=== PATIENT | male | born 1955 | race Caucasian/White ===

== ENCOUNTER 2016-07-04 21:39 | Emergency (ER) | payer OTHER ==
[~2016-07-04] VITALS: Ht 185.4 cm; Wt 84.1 kg
[2016-07-04 22:39] VITALS: BP 112/60; PULSE 68; RESP 16; TEMP 98.3; O2SAT 96
--- NOTE | 2016-07-04 22:46 | PD ---
HPI Chief Complaint: Killian act Time Seen by Provider: 22:38 Travel History International Travel<30 days: No Contact w/Intl Traveler<30days: No Traveled to known affect area: No History of Present Illness HPI 60-year-old male presents under Killian act initiated by the Police Department. According to his paperwork the patient was found on the ground intoxicated bleeding from his nose. He is visibly upset, refuse treatment, so that he was depressed and has lost everything. On examination the patient admits to feeling depressed for years, he says that everything that he ever had was stolen from him. He admits [place]. He doesn't recall how he injured his face. He denies any pain at this time. He denies any chest pain, shortness of breath, syncopal events, suicidal or homicidal thoughts. He denies any drug use. He has no other complaints. Last tetanus vaccination within 5 years. History is somewhat limited secondary to intoxication. [facility] Social History Alcohol Use: Yes (3 BEERS/DAY) Tobacco Use: No Substance Use: No Allergies-Medications (Allergen,Severity, Reaction): Coded Allergies: Liv (Verified Allergy, Severe, Hives, 07/04/16) Reported Meds & Prescriptions Reported Meds & Active Scripts Active Active Prescriptions or Reported Medications Unobtainable Review of Systems ROS Limitations: Intoxication Except as stated in HPI: all other systems reviewed are Neg Physical Exam Exam Limitations: Intoxication Narrative GENERAL: Disheveled appearing male in no acute distress SKIN: Warm and dry. Abrasions to the nose. HEAD: Atraumatic. Normocephalic. EYES: Pupils equal and round. No scleral icterus. No injection or drainage. ENT: No nasal bleeding or discharge. Mucous membranes pink and moist. No septal hematoma, no obvious dental injury. NECK: Trachea midline. No JVD. CARDIOVASCULAR: Regular rate and rhythm. No murmur appreciated. RESPIRATORY: No accessory muscle use. Clear to auscultation. Breath sounds equal bilaterally. GASTROINTESTINAL: Abdomen soft, non-tender, nondistended. Hepatic and splenic margins not palpable. MUSCULOSKELETAL: No obvious deformities. No clubbing. No cyanosis. No edema. NEUROLOGICAL: Awake and alert. No obvious cranial nerve deficits. Motor grossly within normal limits. Slurred speech PSYCHIATRIC: Depressed mood. Data Data Last Documented VS Vital Signs Date Time Temp Pulse Resp B/P Pulse Ox O2 Delivery O2 Flow Rate FiO2 07/04/16 23:24 18 100 Room Air 07/04/16 22:39 98.3 68 112/60 Orders Complete Blood Count With Diff (07/04/16 22:26) Comprehensive Metabolic Panel (07/04/16 22:26) Psych Screen (07/04/16 22:26) Drug Screen, Random Urine (07/04/16 22:31) Alcohol (Ethanol) (07/04/16 22:31) Ct Brain W/O Iv Contrast(Rout) (07/04/16 ) Ct Facial Bones W/O Iv Cont (07/04/16 ) Ct Cerv Spine W/O Contrast (07/04/16 ) Labs Laboratory Tests Test 07/04/16 07/04/16 22:50 22:55 Ethyl Alcohol Level 369 MG/DL Sodium Level 141 MEQ/L Potassium Level 3.8 MEQ/L Chloride Level 106 MEQ/L Carbon Dioxide Level 26.5 MEQ/L Anion Gap 9 MEQ/L Blood Urea Nitrogen 7 MG/DL Creatinine 0.90 MG/DL Estimat Glomerular Filtration 86 ML/MIN Rate Random Glucose 93 MG/DL Calcium Level 8.4 MG/DL Total Bilirubin 0.3 MG/DL Aspartate Amino Transf 24 U/L (AST/SGOT) Alanine Aminotransferase 24 U/L (ALT/SGPT) Alkaline Phosphatase 85 U/L Total Protein 8.1 GM/DL Albumin 4.0 GM/DL Urine Opiates Screen NEG Urine Barbiturates Screen NEG Urine Amphetamines Screen NEG Urine Benzodiazepines Screen NEG Urine Cocaine Screen NEG Urine Cannabinoids Screen NEG White Blood Count 7.4 TH/MM3 Red Blood Count 4.07 MIL/MM3 Hemoglobin 15.5 GM/DL Hematocrit 43.2 % Mean Corpuscular Volume 106.2 FL Mean Corpuscular Hemoglobin 38.2 PG Mean Corpuscular Hemoglobin 36.0 % Concent Red Cell Distribution Width 12.6 % Platelet Count 278 TH/MM3 Mean Platelet Volume 7.1 FL Neutrophils (%) (Auto) 45.3 % Lymphocytes (%) (Auto) 46.7 % Monocytes (%) (Auto) 6.2 % Eosinophils (%) (Auto) 1.4 % Basophils (%) (Auto) 0.4 % Neutrophils # (Auto) 3.3 TH/MM3 Lymphocytes # (Auto) 3.4 TH/MM3 Monocytes # (Auto) 0.5 TH/MM3 Eosinophils # (Auto) 0.1 TH/MM3 Basophils # (Auto) 0.0 TH/MM3 CBC Comment AUTO DIFF Differential Comment AUTO DIFF CONFIRMED Platelet Estimate NORMAL Platelet Morphology Comment NORMAL Tear Drop Cells Ovalocytes 1+ MDM Medical Decision Making Medical Screen Exam Complete: Yes Emergency Medical Condition: Yes Medical Record Reviewed: Yes Differential Diagnosis Substance induced mood disorder, adjustment reaction, acute psychosis, major depressive disorder, bipolar disorder Narrative Course Mental health screening discussed with the patient. Psychiatric screen ordered. Alcohol level was 369. CT of the facial bones reveals old nasal fracture, no acute abnormality. CT of the brain and cervical spine negative. The patient is medically cleared for psychiatric disposition. Diagnosis Primary Impression: Alcohol intoxication Qualified Code: F10.120 - Alcohol intoxication, uncomplicated Additional Impression: Depression Qualified Code: F32.9 - Depression, unspecified depression type Scripts Unable to Obtain Active Prescriptions or Reported Meds Daniel Byers Jul 04, 2016 22:46
[2016-07-04 23:28] LABS: AMPHETAMINE, URINE NEG (NEG); BARBITURATES, URINE NEG (NEG); COCAINE, URINE NEG (NEG)
[2016-07-04 23:54] LABS: AUTOMATED NEUTROPHIL # 3.3 TH/MM3 (1.8-7.7); BASOPHIL % 0.4 % (0.0-2.0); EOSINOPHIL # 0.1 TH/MM3 (0-0.4); EOSINOPHIL % 1.4 % (0.0-4.0); HEMATOCRIT 43.2 % (39.0-51.0); LYMPH % 46.7 % (9.0-44.0); LYMPHOCYTE # 3.4 TH/MM3 (1.0-4.8); MEAN CELL VOLUME 106.2 FL (80.0-100.0); MEAN CORPUSCULAR HEMOGLOBIN 38.2 PG (27.0-34.0); MONO % 6.2 % (0.0-8.0); NEUT % 45.3 % (16.0-70.0); PLATELET COUNT 278 TH/MM3 (150-450); RED BLOOD COUNT 4.07 MIL/MM3 (4.50-5.90); RED CELL DISTRIBUTION WIDTH 12.6 % (11.6-17.2); WHITE BLOOD COUNT 7.4 TH/MM3 (4.0-11.0)
[2016-07-04 23:57] LABS: ANION GAP 9 MEQ/L (5-15); AST (GOT) 24 U/L (15-37); BICARBONATE 26.5 MEQ/L (21.0-32.0); BLOOD UREA NITROGEN 7 MG/DL (7-18); CHLORIDE 106 MEQ/L (98-107); GLOMERULAR FILTRATION RATE 86 ML/MIN (>89); POTASSIUM 3.8 MEQ/L (3.5-5.1); SODIUM (NA) 141 MEQ/L (136-145)
[2016-07-05] LABS: ALKALINE PHOSPHATASE 85 U/L (45-117); ALT (GPT) 24 U/L (12-78); TOTAL BILIRUBIN ADULT 0.3 MG/DL (0.2-1.0)
--- NOTE | 2016-07-05 00:02 | RADRPT ---
EXAM DATE/TIME: 07/04/2016 23:14 [facility] COMPARISON: CT BRAIN W/O CONTRAST, May 10, 2015, 15:40. INDICATIONS : Trauma; fall. ETOH. RADIATION DOSE: 56.35 CTDIvol (mGy) MEDICAL HISTORY : Non-responsive. SURGICAL HISTORY : Non-responsive. ENCOUNTER: Initial ACUITY: 1 day PAIN SCALE: Non-responsive LOCATION: cranial TECHNIQUE: Multiple contiguous axial images were obtained of the head. Using automated exposure control and adj ustment of the mA and/or kV according to patient size, radiation dose was kept as low as reasonably a chievable to obtain optimal diagnostic quality images. FINDINGS: CEREBRUM: The ventricles are normal for age. No evidence of midline shift, mass lesion, hemorrhage or acute in farction. No extra-axial fluid collections are seen. POSTERIOR FOSSA: The cerebellum and brainstem are intact. The 4th ventricle is midline. The cerebellopontine angle i s unremarkable. EXTRACRANIAL: The visualized portion of the orbits is intact. There is minimal left maxillary sinus disease. SKULL: The calvaria is intact. No evidence of skull fracture. CONCLUSION: No acute disease. Amanuel Zhang MD on July 04, 2016 at 23:59 Board Certified Radiologist. This report was verified electronically.
[2016-07-05 00:04] LABS: HEMO FLAGS AUTO DIFF
--- NOTE | 2016-07-05 00:07 | RADRPT ---
EXAM DATE/TIME: 07/04/2016 23:14 [facility] COMPARISON: CT CERVICAL SPINE W/O CONTRAST, May 10, 2015, 15:40. INDICATIONS : Trauma; fall. ETOH. RADIATION DOSE: 18.4 CTDIvol (mGy) MEDICAL HISTORY : Non-responsive. SURGICAL HISTORY : Non-responsive. ENCOUNTER: Initial ACUITY: 1 day PAIN SCALE: Non-responsive LOCATION: neck TECHNIQUE: Volumetric scanning of the cervical spine was performed. Multiplanar reconstructions in the sagittal, coronal and oblique axial planes were performed. Using automated exposure control and adjustment o f the mA and/or kV according to patient size, radiation dose was kept as low as reasonably achievable to obtain optimal diagnostic quality images. FINDINGS: VERTEBRAE: Normal vertebral body height. ALIGNMENT: There is 3 mm of anterior subluxation of C5 on C6 secondary to degenerative facet change. This was pr esent previously. C2-C3: The bony spinal canal is normal in size. No evidence of disc bulge or herniation. The neural forami na are bilaterally patent. There is severe facet hypertrophy on the right. C3-C4: The disc space is narrowed. A significant impression on the thecal sac is not seen. There is uncovert ebral and facet hypertrophy. Facet hypertrophy is worse on the left. There is narrowing of the left n eural foramina. The right neural foramina is patent. C4-C5: The bony spinal canal is normal in size. No evidence of disc bulge or herniation. The neural forami na are bilaterally patent. There is moderate facet hypertrophy being worse on the right. C5-C6: Again noted is the anterior subluxation of C5 on C6. There is moderate facet hypertrophy. The bony sp inal canal is normal in size. No evidence of disc bulge or herniation. The neural foramina are bila terally patent.C6-C7: The bony spinal canal is normal in size. No evidence of disc bulge or herniation. The neural forami na are bilaterally patent. There is mild facet hypertrophy being worse on the right. C7-T1: The bony spinal canal is normal in size. No evidence of disc bulge or herniation. The neural forami na are bilaterally patent. CONCLUSION: Degenerative change. An acute bony abnormality is not seen. Amanuel Zhang MD on July 05, 2016 at 0:01 Board Certified Radiologist. This report was verified electronically.
--- NOTE | 2016-07-05 00:29 | RADRPT ---
EXAM DATE/TIME: 07/04/2016 23:14 [facility] COMPARISON: CT BRAIN W/O CONTRAST, May 10, 2015, 15:40. INDICATIONS : Trauma; fall. ETOH. RADIATION DOSE: 21.96 CTDIvol (mGy) MEDICAL HISTORY : Non-responsive. SURGICAL HISTORY : Non-responsive. ENCOUNTER: Initial ACUITY: 1 day PAIN SCORE: Non-responsive LOCATION: facial TECHNIQUE: Volumetric scanning of the facial bones was performed. Using automated exposure control and adjustme nt of the mA and/or kV according to patient size, radiation dose was kept as low as reasonably achiev able to obtain optimal diagnostic quality images. FINDINGS: ORBITS: The orbital and infraorbital osseous structures are intact. The retroconal structures have a normal configuration. No radiopaque foreign bodies are seen. NASAL BONE: There is bony deformity seen at the distal aspect of the nasal bones being worse on the right. This a ppears more chronic potentially from prior fracture. ZYGOMATIC ARCHES: Symmetric without evidence of fracture. SINUSES: There is minimal left maxillary sinus disease. The right maxillary, ethmoid and frontal sinuses are i ntact. No air-fluid levels seen. NASAL CAVITY: The nasal septum is intact and midline. The lacrimal ducts are intact. SOFT TISSUES: No radiopaque foreign bodies seen. No soft-tissue swelling is seen. INTRACRANIAL: No intracranial air seen. CRIBIFORM PLATE: Grossly intact. CONCLUSION: Deformity and hypertrophic change of the distal inferior aspect of the nasal bones especially on the right. This thought to likely be more chronic given its appearance from prior injury. This can be cor related clinically. Amanuel Zhang MD on July 05, 2016 at 0:23 Board Certified Radiologist. This report was verified electronically.
[2016-07-05 00:55] LABS: OVALOCYTES 1+ (NORMAL)
[2016-07-05 00:57] LABS: PLATELET ESTIMATE SMEAR NORMAL (NORMAL); PLATELET MORPHOLOGY NORMAL (NORMAL); SCAN/DIFF AUTO DIFF CONFIRMED
[2016-07-05 03:22] VITALS: BP 100/85; PULSE 54; RESP 18; TEMP 98.5; O2SAT 96
[2016-07-05] MEDS ORDERED: LORazepam 2 MG TAB PO PRN (06:45)
[2016-07-05] MEDS ORDERED: FLUMAZENIL 0.5 MG/5 ML VIAL IV PUSH PRN (06:45)
[2016-07-05] MEDS ORDERED: LORazepam 2 MG/ML VIAL IV PUSH PRN ×4 (06:45)
[2016-07-05] MEDS ORDERED: LORazepam 1 MG TAB PO PRN (06:45)
[2016-07-05 10:46] VITALS: BP 103/60; PULSE 104; RESP 18; O2SAT 97
[2016-07-05 11:39] VITALS: BP 103/60; PULSE 104; RESP 18; O2SAT 97
--- NOTE | 2016-07-05 11:51 | PD.CONS ---
Provisional Diagnosis Admission Date 07/04/16 [place]. Adjustment disorder with mixed disturbances of emotion and conduct F 25.0 alcohol abuse F10.10 History of Present Illness Service Psychiatry Consult Requested By EDMD Reason for Consult Killian act Primary Care Physician No Primary Care Physician HPI Patient is a 60-year-old white male who comes here under Killian act by the [place] police dated 07/04/16 at 202 7 PM Killian act reviewed essentially stating that the patient was found on the ground intoxicated and bleeding from his nose it appears he was upset and was unable to describe the situation he initially refused medical treatment saying he was depressed and lost everything but no family or friends in the area. Patient was seen screened in the ED blood alcohol level of 369 negative toxicology. At the present time patient sitting quietly in his room on J pod nurse Delgado present throughout session. Is no the patient has multiple abrasions and swelling over his nose from falling on his face. This is been addressed and treated by the ED physician. Patient states essentially homeless has been staying with a man who he works with. This man told him to leave the house at 10:00 yesterday and not come back to 10 PM. So the patient went to a Park where he knows some men and started drinking. He admits only to drinking beer. Patient states he has abused alcohol since a teenager. There is been stressors in his life the of his about 7 years ago. Known since high school. It appears she had a prior relationship that resulted in 2 children. Patient states he has no relationship with them. He does state he has a college degree. Patient denies any prior psychiatric contact psychotropic medications or hospitalizations. Patient denies suicidality homicidality voices or visions. He denies any physical or sexual abuse in his past. Denies any mental health issues predictions in his family of origin. At the present time patient does not meet Kaesu act criteria I'll lift Kaesu act. It is okay by psych for discharge when medically clear and stable. No Rx by me. [place] referral AA, phil referral [facility] act voluntary outpatient substance abuse assessment Review of Systems Constitutional: DENIES: Diaphoretic episodes, Fatigue, Fever, Weight gain, Weight loss, Chills, Dizziness, Change in appetite, Night Sweats Endocrine: DENIES: Heat/cold intolerance, Polydipsia, Polyuria, Polyphagia Eyes: DENIES: Blurred vision, Diplopia, Eye inflammation, Eye pain, Vision loss , Photosensitivity, Double Vision Ears, nose, mouth, throat: DENIES: Tinnitus, Hearing loss, Vertigo, Nasal discharge, Oral lesions, Throat pain, Hoarseness, Ear Pain, Running Nose, Epistaxis, Sinus Pain, Toothache, Odynophagia Respiratory: DENIES: Apneas, Cough, Snoring, Wheezing, Hemoptysis, Sputum production, Shortness of breath Cardiovascular: DENIES: Chest pain, Palpitations, Syncope, Dyspnea on Exertion , PND, Lower Extremity Edema, Orthopnea, Claudication Gastrointestinal: DENIES: Abdominal pain, Black stools, Bloody stools, Constipation, Diarrhea, Nausea, Vomiting, Difficulty Swallowing, Anorexia Genitourinary: DENIES: Sexual dysfunction, Urinary frequency, Urinary incontinence, Urgency, Hematuria, Dysuria, Nocturia, Penile Discharge, Testicular Pain, Testicular Swelling Musculoskeletal: DENIES: Joint pain, Muscle aches, Stiffness, Joint Swelling, Back pain, Neck pain Integumentary: DENIES: Abnormal pigmentation, Nail changes, Pruritus, Rash Hematologic/lymphatic: DENIES: Bruising, Lymphadenopathy Immunologic/allergic: DENIES: Eczema, Urticaria Neurologic: DENIES: Abnormal gait, Headache, Localized weakness, Paresthesias, Seizures, Speech Problems, Tremor, Poor Balance Psychiatric: COMPLAINS OF: Depression Past Family Social History Coded Allergies: Liv (Verified Allergy, Severe, Hives, 07/04/16) Past Medical History Long history alcohol abuse Unable to Obtain Active Prescriptions or Reported Meds Current Medications Medications (Trade) Dose Ordered Sig/Luis Route Start Time Stop Time Status Last Admin (Romazicon Inj) 0.2 mg Q1M PRN IV PUSH 07/05/16 06:45 (Ativan) 1 mg Q4H PRN PO 07/05/16 06:45 (Ativan Inj) 1 mg Q4H PRN IV PUSH 07/05/16 06:45 (Ativan) 2 mg Q2H PRN PO 07/05/16 06:45 (Ativan Inj) 2 mg Q2H PRN IV PUSH 07/05/16 06:45 (Ativan Inj) 2 mg Q1H PRN IV PUSH 07/05/16 06:45 (Ativan Inj) 2 mg Q15M PRN IV PUSH 07/05/16 06:45 Family History Denies mental health issues or addictions and family Social History Patient living with fellow worker, but essentially homeless Patient's Strengths (min. 2) Patient verbal able access healthcare Physical Exam Patient seen screen in ED exam reviewed and agreed with Vital Signs Vital Signs Date Time Temp Pulse Resp B/P Pulse Ox O2 Delivery O2 Flow Rate FiO2 07/05/16 10:46 104 18 103/60 97 Room Air 07/05/16 03:22 98.5 Mental Status Examination Alert oriented thin slender white male appears stated age seen calmly in his room nurse Delgado present throughout session. Patient calm cooperative with fair eye contact Appearance Somewhat disheveled Speech: Unremarkable Memory: Unremarkable Thought Process: Logical Thought Content: Unremarkable Language Citizen Of [place] Fund of Knowledge Fair Hallucination Type: None Attention and Concentration: Other (fair) Suicidal Ideation: No (deny) Previous Suicide Attempts: No (deny) Homicidal Ideation: No (denies) Previous Homicide Attempts: No (denies) Insight: Fair Judgment: Poor Affect: Other (decreased range and intensity) Mood: Euthymic (to somewhat dysphoric) Motor Activity: Normal gait Assessment & Plan Problem List: (1) Adjustment disorder with mixed disturbance of emotions and conduct ICD Code: F43.25 (2) Alcohol abuse ICD Code: F10.10 Assessment & Plan Estimated LOS: days patient does not meet Killian criteria will lift Maria D act as okay by psych for discharge for medical clearance stable, no Rx by me, strong recommendation AA, strong recommendation voluntary assessment [facility] act outpatient substance abuse assessment Discharge Planning See above Request HC Surrog/Guard Advoc?: No Amanuel Hardy MD Jul 05, 2016 11:51
== END 2016-07-05 12:28 | disposition home or self-care (01) ==
LOC: NEPB 21:39 → NEPJ 07-05 12:28
DX: F10.120 Alcohol abuse with intoxication, uncomplicated (principal); S00.31XA Abrasion of nose, initial encounter; F32.9 Major depressive disorder, single episode, unspecified; Y90.8 Blood alcohol level of 240 mg/100 ml or more; X58.XXXA Exposure to other specified factors, initial encounter; Y92.9 Unspecified place or not applicable; Y99.9 Unspecified external cause status; Y93.9 Activity, unspecified
CPT/HCPCS: 70450; 70486; 72125; 80053; 80307; 85025

== ENCOUNTER 2016-12-05 17:18 | Emergency (ER) | payer OTHER ==
[~2016-12-05] VITALS: Ht 172.7 cm; Wt 77.0 kg
[2016-12-05 17:33] VITALS: BP 132/84; PULSE 73; RESP 16; TEMP 98.2; O2SAT 97
--- NOTE | 2016-12-05 17:38 | PD ---
HPI Chief Complaint: alcohol intoxication Time Seen by Provider: 17:34 Travel History International Travel<30 days: No Contact w/Intl Traveler<30days: No History of Present Illness HPI Patient comes in under Lake's act for alcohol intoxication. Patient reportedly known alcoholic and is homeless per police. Patient denies any medical complaints or concerns at this time. Denies any chest pain, shortness of breath, fevers, abdominal pain, headache, nausea, vomiting, suicidal or homicidal ideations, or loss change in bowel or bladder. Per police patient was initially unable to ambulate on his own which is why they Lake's acted him. Patient is ambulatory in the room. Patient states he does not drink that much as he does not have the money to afford the alcohol. [facility] Past Medical History Diabetes: Yes Social History Alcohol Use: Yes (3 BEERS/DAY) Tobacco Use: No Substance Use: Yes (Drinks almost daily) Allergies-Medications (Allergen,Severity, Reaction): Coded Allergies: fexofenadine (Unverified Allergy, Severe, Hives, 12/05/16) Reported Meds & Prescriptions Reported Meds & Active Scripts Active No Active Prescriptions or Reported Medications Review of Systems Except as stated in HPI: all other systems reviewed are Neg Physical Exam Narrative GENERAL: Well-developed, well nourished, in no acute distress, and non-ill appearing. Alcohol noted on breath. SKIN: Focused skin assessment warm and dry. HEAD: Atraumatic. Normocephalic. EYES: Pupils equal and round. EOMI. No scleral icterus. No injection or drainage. ENT: No nasal bleeding or discharge. Mucous membranes pink and moist. NECK: Trachea midline. Supple. No nuclear rigidity. CARDIOVASCULAR: Regular rate and rhythm. No murmur appreciated. RESPIRATORY: No accessory muscle use. No respiratory distress. Clear to auscultation. Breath sounds equal bilaterally. MUSCULOSKELETAL: No obvious deformities. No clubbing. No cyanosis. No edema. Full range of motion. NEUROLOGICAL: Awake and alert. No obvious cranial nerve deficits. Motor grossly within normal limits. Normal speech. PSYCHIATRIC: Appropriate mood and affect; insight and judgment normal. Data Data Last Documented VS Vital Signs Date Time Temp Pulse Resp B/P (MAP) Pulse Ox O2 Delivery O2 Flow Rate FiO2 12/05/16 21:13 77 16 122/71 (88) 96 Room Air 12/05/16 17:45 97.9 [facility] Medical Decision Making Medical Screen Exam Complete: Yes Emergency Medical Condition: Yes Differential Diagnosis Alcohol intoxication, alcohol abuse, alcohol dependency, other Narrative Course Patient was seen and examined. Patient will be monitored in the emergency department until clinically sober and able to ambulate on their own or until a sober responsible adult comes to pick them up at which time Lake's act will be lifted. RN is aware of this. Diagnosis Primary Impression: Alcohol intoxication Qualified Codes: F10.920 - Alcohol use, unspecified with intoxication, uncomplicated Referrals: [facility] Patient Instructions: Abuse of Alcohol (ED), General Instructions Additional Instructions: Follow-up with your primary care physician and/or [facility]o Deshpande for alcohol detox. Return to the emergency department if symptoms get worse.s Scripts No Active Prescriptions or Reported Meds Disposition: 01 DISCHARGE HOME Condition: Stable Azam Tovar Dec 05, 2016 17:38
[2016-12-05 17:45] VITALS: BP 128/73; PULSE 75; RESP 20; TEMP 97.9; O2SAT 100
[2016-12-05 21:13] VITALS: BP 122/71; PULSE 77; RESP 16; O2SAT 96
== END 2016-12-06 03:14 | disposition home or self-care (01) ==
LOC: NEPE 17:18 → NEPD 12-06 03:14
DX: F10.920 Alcohol use, unspecified with intoxication, uncomplicated (principal); Z59.0 Homelessness
CPT/HCPCS: 99283

== ENCOUNTER 2017-03-04 15:48 | Emergency (ER) | payer OTHER ==
[~2017-03-04] VITALS: Ht 182.9 cm; Wt 85.0 kg
[2017-03-04 16:00] VITALS: BP 135/92; PULSE 82; RESP 18; TEMP 97.6; O2SAT 100
--- NOTE | 2017-03-04 16:19 | PD ---
HPI Chief Complaint: Alcohol/Drug Intoxication Time Seen by Provider: 16:01 Travel History International Travel<30 days: No Contact w/Intl Traveler<30days: No Traveled to known affect area: No History of Present Illness HPI 61-year-old male presents to the emergency department under [place] act. Patient reports drinking a few beers today. Reports frequent drinking. Denies drinking daily. Denies illicit drug use. Reports tobacco use. Denies suicidal or homicidal ideations. Denies auditory or visual hallucinations. Has skin tear to his right hand and says he doesn't know what happened. Denies being up-to-date on his tetanus vaccination and declines tetanus update. Has no other medical complaints. Denies fever, vomiting, abdominal pain, chest pain , shortness of breath, change in urine or stool. Denies recent illness. No known aggravating or relieving factors. Allergies to fexofenadine No other modifying factors or associated signs and symptoms. PFSH Past Medical History Diabetes: Yes Patient Takes Glucophage: No Diminished Hearing: No Medical other: Yes (ETOH ABUSE ) Immunizations Current: Yes Tetanus Vaccination: < 5 Years Influenza Vaccination: Yes Past Surgical History Surgical History: No Previous Surgery Social History Alcohol Use: Yes (daily ,ETOH ABUSE ) Tobacco Use: Yes Substance Use: No (Drinks almost daily) Allergies-Medications (Allergen,Severity, Reaction): Coded Allergies: fexofenadine (Unverified Allergy, Severe, Hives, 03/04/17) Reported Meds & Prescriptions Reported Meds & Active Scripts Active Active Prescriptions or Reported Medications Unobtainable Review of Systems Except as stated in HPI: all other systems reviewed are Neg Physical Exam Narrative GENERAL: Well-nourished, well-developed male patient, in no acute distress; smells of EtOH and appears intoxicated SKIN: Warm and dry. HEAD: Atraumatic. Normocephalic. EYES: Pupils equal and round. ENT: Mucosa pink and moist. NECK: Supple. Trachea midline. CARDIOVASCULAR: Regular rate and rhythm. No murmur appreciated. RESPIRATORY: No accessory muscle use. Clear to auscultation. Breath sounds equal bilaterally. GASTROINTESTINAL: Abdomen soft, non-tender, nondistended. Hepatic and splenic margins not palpable. Bowel sounds are active 4 quadrants. MUSCULOSKELETAL: No obvious deformities. No clubbing. No cyanosis. No edema. NEUROLOGICAL: Awake and alert. Oriented 3. No obvious cranial nerve deficits. Motor grossly within normal limits. Normal speech. Moves all extremities. 5/5 strength to all extremities. PSYCHIATRIC: No delusional thought processes. No hallucinations. Data Data Last Documented VS Vital Signs Date Time Temp Pulse Resp B/P (MAP) Pulse Ox O2 Delivery O2 Flow Rate FiO2 03/04/17 16:29 98 Room Air 03/04/17 16:00 97.6 82 18 135/92 (106) MDM Medical Decision Making Medical Screen Exam Complete: Yes Emergency Medical Condition: Yes Medical Record Reviewed: Yes Differential Diagnosis Alcohol intoxication, alcohol dependence, alcohol abuse Narrative Course 61-year-old male presents under Charlee napier for alcohol intoxication. Patient has no emergent medical complaints. Patient will be given time to sleep, will be reevaluated at a later time, and discharged when clinically sober. Diagnosis Primary Impression: Alcohol intoxication Qualified Codes: F10.920 - Alcohol use, unspecified with intoxication, uncomplicated Referrals: MADELEINE (Out patient) [facility] Primary Care Physician Gemini NAPIER Behavioral Patient Instructions: Abuse of Alcohol (ED), Alcohol Dependence (ED), Alcohol Intoxication (ED), General Instructions Additional Instructions: Stop drinking alcohol Follow-up with primary care provider Follow-up with Taco Zaragoza Return to the emergency department immediately with worsening of symptoms Med/Other Pt SpecificInfo: No Change to Meds, No Meds Exist/No RX given Scripts No Active Prescriptions or Reported Meds Disposition: 01 DISCHARGE HOME Condition: Stable Sowmya Blanchard Mar 04, 2017 16:19
[2017-03-04 20:12] VITALS: BP 109/57; PULSE 94; RESP 16; O2SAT 99
== END 2017-03-04 22:29 | disposition home or self-care (01) ==
LOC: NEPD 15:48
DX: F10.920 Alcohol use, unspecified with intoxication, uncomplicated (principal); S61.411A Laceration without foreign body of right hand, initial encounter; E11.9 Type 2 diabetes mellitus without complications; F10.10 Alcohol abuse, uncomplicated; Z72.0 Tobacco use; X58.XXXA Exposure to other specified factors, initial encounter
CPT/HCPCS: 99282

== ENCOUNTER 2017-12-24 16:34 | Inpatient (IN) ==
[2017-12-24] MEDS ORDERED: Morphine Inj 4 MG/ML Vial IV.PUSH ONE (16:56)
--- NOTE | 2017-12-24 17:07 | ED ---
HPI General Chief complaint: Extremity Injury, Upper Stated complaint: Shoulder Pain Time Seen by Provider: 12/24/17 16:52 History of Present Illness HPI narrative: 62-year-old male by ambulance here for evaluation of severe right shoulder pain. Apparently the patient fell yesterday and was seen at [facility] and was diagnosed with a shoulder fracture. He was discharged with a sling. He reports that his pain has been worsening since he was discharged, is severe, constant, worse with movements. He has an abrasion and ecchymosis inferior to his left eye, and tells me that he did have a CT scan of his head while at [facility] yesterday. No paresthesias. Chart review shows that the patient has been here in the past intoxicated with alcohol. He admits to drinking alcohol yesterday, but states he has not had any alcoholic beverages today, and does not drink daily. Related Data Home Medications Medication Instructions Recorded Confirmed No Known Home Medications 12/24/17 12/24/17 Allergies Allergy/AdvReac Type Severity Reaction Status Date / Time fexofenadine Allergy Intermediate Hives Verified 12/24/17 16:44 naproxen [From Aleve] Allergy Intermediate Hives Verified 12/24/17 16:44 Review of Systems ROS: all other systems reviewed are negative [facility] Medical History Medical History Patient denies medical problems (Acute) Surgical History Surgical History No history of previous surgery (Acute) Social History Social History Substance History: Active Abuse Smoking Status: Current some day smoker Tobacco Type: Cigarettes How Often Do You Have a Drink Containing Alcohol: 4 or more times a week Recent Travel in [facility] within the Last 8 Weeks: No Recent Out of Country Travel within the Last 8 Weeks: No Substance Abuse Detail Alcohol: Substance Use Status: Active Route Used Substance Abuse: By Mouth Immunization History Tetanus Immunization: <5 Years Hx Influenza Vaccine This Season: Yes Exam Narrative Exam Narrative: GENERAL: Well-developed, well-nourished, disheveled, awake, alert, no apparent distress. SKIN: Focused skin assessment warm/dry. Superficial abrasion and ecchymosis inferior to left eye. HEAD: Atraumatic. Normocephalic. EYES: Pupils equal, round, 3 mm, reactive to light. EOMI. No scleral icterus. No injection or drainage. ENT: No nasal bleeding or discharge. Mucous membranes pink and dry. NECK: Trachea midline. No JVD. No midline cervical spine step-off or tenderness. CARDIOVASCULAR: Regular rate and rhythm. Bilateral distal radial pulses are brisk and equal. RESPIRATORY: No accessory muscle use. Clear to auscultation. Breath sounds equal bilaterally. GASTROINTESTINAL: Abdomen soft, non-tender, nondistended. MUSCULOSKELETAL: Significant edema and ecchymosis to right shoulder with diffuse tenderness, limited range of motion secondary to pain. All compartments in the right upper extremity are supple. The rest of his joints and extremities are without deformity and is, with normal range of motion. NEUROLOGICAL: Awake and alert. No obvious cranial nerve deficits. Motor grossly within normal limits. Normal speech. PSYCHIATRIC: Appropriate mood and affect; insight and judgment normal. Course Initial Documented Vital Signs Temperature 98.6 F 12/24/17 16:40 Pulse Rate 108 H 12/24/17 16:40 Respiratory Rate 26 H 12/24/17 16:40 Blood Pressure 148/90 H 12/24/17 16:40 Pulse Oximetry 95 12/24/17 16:40 Last Documented Vital Signs Temperature 98.6 F 12/24/17 16:40 Pulse Rate 99 H 12/24/17 18:22 Respiratory Rate 16 12/24/17 18:22 Blood Pressure 138/76 12/24/17 18:22 Pulse Oximetry 98 12/24/17 18:22 Medical Decision Making MDM Narrative Medical decision making narrative: Vital signs reviewed. Records from [facility] will attempt to be obtained. Right shoulder x-ray: 1. Comminuted mildly displaced proximal right humeral neck fracture.2. Questionable abnormality of the acromioclavicular joint with joint space widening and apparent depression of the distal right clavicle. CBC remarkable for slight anemia with a hemoglobin of 11.9 and an elevated MCV of 111 which is likely secondary to alcohol abuse as well as thrombocytopenia with a platelet count of 135. CMP is remarkable for creatinine 1.7, anion gap of 20, and a bicarb of 16.4. A beta hydroxybutyrate was ordered as this may be secondary to alcohol ketoacidosis. T bili is 1.8 and LFTs are in the 100s. Beta hydroxybutyrate is 1.48. Patient will be started on D5 half-normal saline for likely alcoholic ketoacidosis. He will be admitted for his anion gap metabolic acidosis. I do not believe his right shoulder fracture is operative. Case discussed with hospitalist Dr. Maloney who will admit the patient to his service. Medical Screen Exam Complete: Yes Emergency Medical Condition: Yes Differential Diagnosis Differential Diagnosis: Right shoulder fracture, alcohol intoxication, alcohol withdrawal, dehydration/metabolic abnormality Lab Data Result diagrams: 12/24/17 17:00 12/24/17 17:00 Lab Results 12/24/17 12/24/17 12/24/17 Range/Units 17:00 17:00 17:00 CBC w Diff Slide review pending WBC 7.4 (4.0-11.0) th/mm3 RBC 3.12 L (4.50-5.90) mil/mm3 Hgb 11.9 L (13.0-17.0) gm/dL Hct 34.8 L (39.0-51.0) % MCV 111.6 H (80.0-100.0) fL MCH 38.2 H (27.0-34.0) pg MCHC 34.2 (32.0-36.0) % RDW 15.6 (11.6-17.2) % Plt Count 135 L (150-450) th/mm3 MPV 7.6 (7.0-11.0) fL Neut % (Auto) 87.1 H (16.0-70.0) % Lymph % (Auto) 3.2 L (9.0-44.0) % [place] % (Auto) 8.9 H (0.0-8.0) % Eos % (Auto) 0.2 (0.0-4.0) % Baso % (Auto) 0.6 (0.0-2.0) % Neut # (Auto) 6.5 (1.8-7.7) th/mm3 Lymph # (Auto) 0.2 L (1.0-4.8) th/mm3 [place] # (Auto) 0.7 (0.0-0.9) th/mm3 Eos # (Auto) 0.0 (0.0-0.4) th/mm3 Baso # (Auto) 0.0 (0.0-0.2) th/mm3 WBC Differential . Diff Scan Auto diff confirmed Differential Comment . Platelet Estimate Low L (Normal) Platelet Morphology Normal (Normal) Spherocytes Occ H (None) PT 9.7 L (9.8-11.6) sec INR 1.0 Ratio APTT 23.4 L (24.3-30.1) sec Sodium 136 (136-145) meq/L Potassium 4.2 (3.5-5.1) meq/L Chloride 100 (98-107) meq/L Carbon Dioxide 16.4 L (21.0-32.0) meq/L Anion Gap 20 H (5-15) meq/L BUN 8 (7-18) mg/dL Creatinine 1.70 H (0.60-1.30) mg/dL Estimated GFR 41 L (>89) mL/min Random Glucose 165 H (74-106) mg/dL Calcium 8.5 (8.5-10.1) mg/dL Total Bilirubin 1.8 H (0.2-1.0) mg/dL AST 115 H (15-37) U/L ALT 117 H (12-78) U/L Alkaline Phosphatase 90 (45-117) U/L Total Protein 8.4 H (6.4-8.2) g/dL Albumin 4.0 (3.4-5.0) g/dL Beta-Hydroxybutyric Acd (0.00-0.39) mmol/L Serum Alcohol 4 (0-5) mg/dL 12/24/17 Range/Units 17:00 CBC w Diff WBC (4.0-11.0) th/mm3 RBC (4.50-5.90) mil/mm3 Hgb (13.0-17.0) gm/dL Hct (39.0-51.0) % MCV (80.0-100.0) fL MCH (27.0-34.0) pg MCHC (32.0-36.0) % RDW (11.6-17.2) % Plt Count (150-450) th/mm3 MPV (7.0-11.0) fL Neut % (Auto) (16.0-70.0) % Lymph % (Auto) (9.0-44.0) % [place] % (Auto) (0.0-8.0) % Eos % (Auto) (0.0-4.0) % Baso % (Auto) (0.0-2.0) % Neut # (Auto) (1.8-7.7) th/mm3 Lymph # (Auto) (1.0-4.8) th/mm3 [place] # (Auto) (0.0-0.9) th/mm3 Eos # (Auto) (0.0-0.4) th/mm3 Baso # (Auto) (0.0-0.2) th/mm3 WBC Differential Diff Scan Differential Comment Platelet Estimate (Normal) Platelet Morphology (Normal) Spherocytes (None) PT (9.8-11.6) sec INR Ratio APTT (24.3-30.1) sec Sodium (136-145) meq/L Potassium (3.5-5.1) meq/L Chloride (98-107) meq/L Carbon Dioxide (21.0-32.0) meq/L Anion Gap (5-15) meq/L BUN (7-18) mg/dL Creatinine (0.60-1.30) mg/dL Estimated GFR (>89) mL/min Random Glucose (74-106) mg/dL Calcium (8.5-10.1) mg/dL Total Bilirubin (0.2-1.0) mg/dL AST (15-37) U/L ALT (12-78) U/L Alkaline Phosphatase (45-117) U/L Total Protein (6.4-8.2) g/dL Albumin (3.4-5.0) g/dL Beta-Hydroxybutyric Acd 1.48 H (0.00-0.39) mmol/L Serum Alcohol (0-5) mg/dL Imaging Data Radiologist's impression: Shoulder X-Ray 12/24/17 16:56 CONCLUSION: 1. Comminuted mildly displaced proximal right humeral neck fracture. 2. Questionable abnormality of the acromioclavicular joint with joint space widening and apparent depression of the distal right clavicle. Discharge Plan Discharge Disposition Patient Disposition: 30 Still Patient Discharge Condition Condition: Stable Discharge Details Diagnosis: Metabolic acidosis, Closed fracture of proximal end of right humerus Physicians Team ED Provider: Bsihop Farrar Primary Care Provider: Primary Care PhysiciBreann Rxs /Orders / Referrals /Forms Prescriptions: No Action No Known Home Medications RF: 0 Discharge Interventions Interventions: Vital Signs Last Done: 12/24/17 18:22 Status ED Status: With Doctor
[2017-12-24 17:16] LABS: Baso % (Auto) 0.6 % (0.0-2.0); Eos % (Auto) 0.2 % (0.0-4.0); Hematocrit 34.8 % (39.0-51.0); Hemoglobin 11.9 gm/dL (13.0-17.0); Lymph # (Auto) 0.2 th/mm3 (1.0-4.8); Lymph % (Auto) 3.2 % (9.0-44.0); Mean Corpuscular HGB Conc 34.2 % (32.0-36.0); Mean Corpuscular Hemoglobin 38.2 pg (27.0-34.0); Mean Corpuscular Volume 111.6 fL (80.0-100.0); Mean Platelet Volume 7.6 fL (7.0-11.0); Mono # (Auto) 0.7 th/mm3 (0.0-0.9); Mono % (Auto) 8.9 % (0.0-8.0); Neut # (Auto) 6.5 th/mm3 (1.8-7.7); Neut % (Auto) 87.1 % (16.0-70.0); Platelet Count 135 th/mm3 (150-450); Red Blood Count 3.12 mil/mm3 (4.50-5.90); Red Cell Distribution Width 15.6 % (11.6-17.2); White Blood Count 7.4 th/mm3 (4.0-11.0)
[2017-12-24 17:26] LABS: Chloride 100 meq/L (98-107); Potassium 4.2 meq/L (3.5-5.1); Sodium 136 meq/L (136-145)
[2017-12-24 17:29] LABS: Calcium 8.5 mg/dL (8.5-10.1)
[2017-12-24 17:30] LABS: Anion Gap 20 meq/L (5-15); Blood Urea Nitrogen 8 mg/dL (7-18); Carbon Dioxide 16.4 meq/L (21.0-32.0); Glucose,Random 165 mg/dL (74-106)
[2017-12-24 17:33] LABS: Alanine Aminotransferase 117 U/L (12-78); Aspartate Aminotransferase 115 U/L (15-37); Glomerular Filtration Rate 41 mL/min (>89)
[2017-12-24 17:34] LABS: Total Protein 8.4 g/dL (6.4-8.2)
[2017-12-24 17:35] LABS: Alkaline Phosphatase 90 U/L (45-117)
--- NOTE | 2017-12-24 17:35 | XR ---
EXAM DATE: 12/24/2017 4:56 PM EDT AGE/SEX: 62 years / Male INDICATIONS: Right shoulder pain post fall CLINICAL DATA: This is the patient's initial encounter. Patient reports that signs and symptoms have been present for 1 day and indicates a pain score of 10/10. MEDICAL/SURGICAL HISTORY: None. None. COMPARISON: No prior exams available for comparison. FINDINGS: 6 views of the right shoulder demonstrate a comminuted displaced fracture involving the right proxima l humerus in the surgical neck region. Fragments are mildly displaced. No glenohumeral joint dislocat ion is appreciated. Scapula appears intact. There is widening of the acromioclavicular distance with possible depression of the distal right clavicle. The visualized ribs demonstrate no acute fracture. There is soft tissue swelling laterally at the shoulder. No radiopaque foreign body is identified. CONCLUSION: 1. Comminuted mildly displaced proximal right humeral neck fracture. 2. Questionable abnormality of the acromioclavicular joint with joint space widening and apparent de pression of the distal right clavicle. Electronically signed by: Amanuel Clements MD 12/24/2017 5:34 PM EDT
[2017-12-24 17:38] LABS: Alcohol 4 mg/dL (0-5)
[2017-12-24 17:39] LABS: Activated Partial Thrombo Time 23.4 sec (24.3-30.1); Prothrombin Time 9.7 sec (9.8-11.6)
[2017-12-24 17:54] LABS: Spherocytes Occ
[2017-12-24 17:55] LABS: Platelet Morphology Normal (Normal)
[2017-12-24 17:59] LABS: Beta Hydroxybutyric Acid 1.48 mmol/L (0.00-0.39)
[2017-12-24] MEDS ORDERED: Bisacodyl 10 MG Supp RECTAL PRN (18:39)
[2017-12-24] MEDS ORDERED: Haloperidol Inj 5 MG/ML Ampul IV.PUSH PRN (18:40)
[2017-12-24] MEDS ORDERED: Dextrose 5%/NaCl 0.45% Inj 1,000 ML IV.CONT SCH (18:45)
[2017-12-24] MEDS: Sod Chloride 0.9% Inj 1,000 ML IV.CONT SCH (18:47)
[2017-12-24] MEDS ORDERED: Dextrose 50% in Water 50 ML Vial IV.PUSH PRN (19:00)
[2017-12-24] MEDS: LORazepam 1 MG Tablet PO PRN (20:08)
[2017-12-24] MEDS: Morphine Sulfate Inj 2 MG/ML Vial IV.PUSH PRN (23:22)
[2017-12-24] MEDS: Insulin NovoLOG Aspart Correctional Sugar Inj SQ SCH (23:33)
[2017-12-25] MEDS: Sod Chloride 0.9% Inj 1,000 ML IV.CONT SCH ×3 (03:56→18:15)
[2017-12-25 07:28] LABS: Baso % (Auto) 0.3 % (0.0-2.0); Eos % (Auto) 0.7 % (0.0-4.0); Hemoglobin 9.9 gm/dL (13.0-17.0); Lymph % (Auto) 15.1 % (9.0-44.0); Mean Corpuscular HGB Conc 35.4 % (32.0-36.0); Mean Corpuscular Hemoglobin 39.5 pg (27.0-34.0); Mean Corpuscular Volume 111.4 fL (80.0-100.0); Mean Platelet Volume 8.3 fL (7.0-11.0); Mono # (Auto) 0.8 th/mm3 (0.0-0.9); Mono % (Auto) 11.6 % (0.0-8.0); Neut # (Auto) 4.8 th/mm3 (1.8-7.7); Neut % (Auto) 72.3 % (16.0-70.0); Platelet Count 98 th/mm3 (150-450); Red Blood Count 2.51 mil/mm3 (4.50-5.90); White Blood Count 6.6 th/mm3 (4.0-11.0)
[2017-12-25 07:33] LABS: Chloride 100 meq/L (98-107); Potassium 3.8 meq/L (3.5-5.1); Sodium 137 meq/L (136-145)
[2017-12-25 07:38] LABS: Calcium 8.4 mg/dL (8.5-10.1)
[2017-12-25] MEDS: Morphine Sulfate Inj 2 MG/ML Vial IV.PUSH PRN ×3 (07:41→22:42)
[2017-12-25 07:47] LABS: Alanine Aminotransferase 84 U/L (12-78); Albumin 3.2 g/dL (3.4-5.0); Alkaline Phosphatase 66 U/L (45-117); Anion Gap 10 meq/L (5-15); Aspartate Aminotransferase 67 U/L (15-37); Beta Hydroxybutyric Acid 0.56 mmol/L (0.00-0.39); Blood Urea Nitrogen 8 mg/dL (7-18); Carbon Dioxide 27.1 meq/L (21.0-32.0); Glomerular Filtration Rate Greater Than 89 mL/min (>89); Glucose,Random 101 mg/dL (74-106); Total Protein 6.7 g/dL (6.4-8.2)
[2017-12-25 08:19] LABS: Platelet Morphology Normal (Normal); Target Cells 1+; Toxic Granulation 1+
--- NOTE | 2017-12-25 09:29 | P.HPIM ---
History of Present Illness Primary Care Physician: No Primary Care Physician History of Present Illness: Mr. Duckworth is a 62 year old with alcoholism. He recently sustained a fracture of his humerus, which is non-surgical. Sling has been provided at a [facility]. Patient was discharged from there, he subsequently fell again. He came into this hospital due to pain and is found to be in an anion gap metabolic acidosis. IV Hydration is provided overnight and he has resolution of his anion gap. He does continue to have pain. He also cannot get out of bed due to the pain. PT evaluation is pending, due to his multiple falls recently he may have a fall risk present other than alcohol. - Diagnosis (1) Metabolic acidosis (2) Closed fracture of proximal end of right humerus Review of Systems Constitutional: No fevers, no chills no night sweats, no fatigue, no weakness Eyes: No eye pain, no blurry vision, no loss of vision ENT: No sore throat, no ear pain, no rhinorrhea Cardiovascular: No chest pain, no tachycardia, no palpitations, no shortness of breath, no syncope Respiratory: No wheezing, no cough, no shortness of breath Gastrointestinal: No abdominal pain, no black tarry stools, no bright red blood per rectum, no vomiting, no diarrhea Musculoskeletal: joint pain, no muscle cramps, no stiffness Integumentary: No rash, no ulcers, no drainage Neurologic: No sensory loss, no loss of motor function, no dizziness Psychiatric: No behavioral changes, no hallucinations, no suicidal ideations [facility] - History History 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, 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 - Medical History Medical History: Medical History (Last Updated 12/25/17 @ 09:26 by Davon Maloney MD) Alcoholism /alcohol abuse Alcoholism /alcohol abuse Patient denies medical problems - Surgical History Surgical History: Surgical History (Last Reviewed 12/25/17 @ 07:19 by Janusz Fong) No history of previous surgery - Family History Family History: Family History (Last Updated 12/25/17 @ 09:27 by Davon Maloney MD) Other Osteoarthritis - Tobacco History Tobacco Use In Past 30 Days: Yes Smoking Status: Current some day smoker Tobacco Type: Cigarettes - Alcohol History How Often Do You Have a Drink Containing Alcohol: 4 or more times a week - Substance Use History Substance History: Active Abuse - Substance Use Type Alcohol Status: Active Route Used: By Mouth - Travel History Recent Travel in the [place] Within the Last 8 Weeks: No Recent Travel Out of the Country Within the Last 8 Weeks: No - Immunization History Tetanus Immunization: <5 Years Hx Influenza Vaccine This Season: Yes Medications and Allergies Active Medications: Active Medications Al Hydroxide/Mg Hydroxide (Milk Of Magnhortencia Liq) 30 ml PO Q12H PRN PRN Reason: Mild Constipation Bisacodyl (Dulcolax Supp) 10 mg RECTAL DAILY PRN PRN Reason: SEVERE CONSITIPATION Dextrose (D50w Vial) 50 ml IV.PUSH UNSCH PRN PRN Reason: PER HYPOGLYCEMIA PROTOCOL Enoxaparin Sodium (Lovenox Inj) 40 mg SQ DAILY ALIYAH Flumazenil (Romazecon Inj) 0.2 mg IV.PUSH Q1M PRN PRN Reason: OVERSEDATION Folic Acid (Folic Acid) 1 mg PO DAILY ALIYAH Glucagon (Glucagon Inj) 1 mg OTHER PRN PRN PRN Reason: for Hypoglycemia Protocol Haloperidol Lactate (Haldol Inj) 1 mg IV.PUSH Q15M PRN PRN Reason: for severe agitation Sodium Chloride (Ns Inj) 1,000 mls @ 125 mls/hr IV.CONT .Q8H ALIYAH Last Admin: 12/25/17 03:56 Dose: 125 mls/hr Insulin Aspart (Novolog Insulin Correctional Sugar Inj) 0 unit SQ ACHS ALIYAH; Protocol Last Admin: 12/24/17 23:33 Dose: Not Given Lorazepam (Ativan) 1 mg PO Q4H PRN PRN Reason: for CIWA 8-10 Last Admin: 12/24/17 20:08 Dose: 1 mg Lorazepam (Ativan) 2 mg PO Q2H PRN PRN Reason: for CIWA 11-14 Lorazepam (Ativan Inj) 2 mg IV.PUSH Q2H PRN PRN Reason: for CIWA 11-14 Lorazepam (Ativan Inj) 2 mg IV.PUSH Q1H PRN PRN Reason: for CIWA 15-20 Lorazepam (Ativan Inj) 1 mg IV.PUSH Q4H PRN PRN Reason: for CIWA 8-10 Lorazepam (Ativan Inj) 2 mg IV.PUSH Q15M PRN PRN Reason: for CIWA > 20 Morphine Sulfate (Morphine Inj) 2 mg IV.PUSH Q3H PRN PRN Reason: pain 1 to 10 Last Admin: 12/25/17 07:41 Dose: 2 mg Sodium Chloride (Ns Flush) 2 ml IV.FLUSH PRN PRN PRN Reason: FLUSH AFTER USING IV ACCESS Thiamine HCl (Vitamin B1) 100 mg PO BID [facility] Last Admin: 12/24/17 23:22 Dose: 100 mg Allergies Allergy/AdvReac Type Severity Reaction Status Date / Time fexofenadine Allergy Intermediate Hives Verified 12/24/17 16:44 naproxen [From Aleve] Allergy Intermediate Hives Verified 12/24/17 16:44 Home Medications Medication Instructions Recorded Confirmed Type No Known Home Medications 12/24/17 12/24/17 History Exam Vital signs: Vital Signs 12/24/17 16:40 12/24/17 18:22 12/24/17 19:58 Temperature 98.6 F 98.9 F Pulse Rate 108 H 99 H 93 H Respiratory Rate 26 H 16 20 Blood Pressure 148/90 H 138/76 111/78 Pulse Oximetry 95 98 12/24/17 20:30 12/24/17 21:07 12/25/17 00:00 Temperature 99.0 F 99.7 F H 99.8 F H Pulse Rate 98 H 78 79 Respiratory Rate 24 20 20 Blood Pressure 129/78 154/84 H 155/90 H Pulse Oximetry 100 100 Intake & Output 12/24/17 12/25/17 12/25/17 18:59 06:59 18:59 Intake Total 1000 / 1000 Output Total 850 / 850 Balance 150 / 150 Weight 77 kg 77.4 kg Intake: IV 1000 / 1000 NS Inj 1,000 ML @ 125 mls/hr IV 1000 / 1000 .CONT .Q8H [facility] Rx#:[id number] Output: Urine 850 / 850 Other: # Voids 3 Weight On Admission 77 kg Narrative: GENERAL: NAD, A&Ox3 HEAD: Normocephalic. NECK: Supple, trachea midline. No lymphadenopathy. EYES: No scleral icterus. No injection or drainage. CARDIOVASCULAR: Regular rate and rhythm without murmurs, gallops, or rubs. RESPIRATORY: Breath sounds equal bilaterally. No accessory muscle use. GASTROINTESTINAL: Abdomen soft, non-tender, nondistended. MUSCULOSKELETAL: No cyanosis, or edema. Right arm is in sling. SKIN: Warm and dry. NEURO: No focal neurological deficits. Results - Labs CBC & Chem 7: 12/25/17 06:35 12/25/17 06:35 Labs: Short CBC 12/24/17 12/25/17 Range/Units 17:00 06:35 WBC 7.4 6.6 (4.0-11.0) th/mm3 Hgb 11.9 L 9.9 L D (13.0-17.0) gm/dL Hct 34.8 L 28.0 L (39.0-51.0) % Plt Count 135 L 98 L (150-450) th/mm3 BMP 12/24/17 12/25/17 17:00 06:35 Sodium 136 137 Potassium 4.2 3.8 Chloride 100 100 Carbon Dioxide 16.4 L 27.1 D BUN 8 8 Creatinine 1.70 H 0.85 Calcium 8.5 8.4 L Liver Function 12/24/17 12/25/17 Range/Units 17:00 06:35 Total Bilirubin 1.8 H 1.4 H (0.2-1.0) mg/dL AST 115 H 67 H (15-37) U/L ALT 117 H 84 H (12-78) U/L Alkaline Phosphatase 90 66 (45-117) U/L Albumin 4.0 3.2 L D (3.4-5.0) g/dL - Imaging Impressions Shoulder X-Ray 12/24/17 16:56 CONCLUSION: 1. Comminuted mildly displaced proximal right humeral neck fracture. 2. Questionable abnormality of the acromioclavicular joint with joint space widening and apparent depression of the distal right clavicle. Caprini VTE Risk Assessment Caprini VTE Risk Assessment: No/Low Risk (score <= 1) Caprini Risk Assessment Model: Point Value = 1 Point Value = 2 Point Value = 3 Point Value = 5 Age 41-60 Minor surgery BMI > 25 kg/m2 Swollen legs Varicose veins or History of unexplained or recurrent spontaneous Oral contraceptives or hormone replacement Sepsis (< 1 month) Serious lung disease, including pneumonia (< 1 month) Abnormal pulmonary function Acute myocardial infarction Congestive heart failure (< 1 month) History of inflammatory bowel disease Medical patient at bed rest Age 61-74 Arthroscopic surgery Major open surgery (> 45 min) Laparoscopic surgery (> 45 min) Malignancy Confined to bed (> 72 hours) Immobilizing plaster cast Central venous access Age >= 75 History of VTE Family history of VTE Factor V Leiden Prothrombin [id number] Lupus anticoagulant Anticardiolipin antibodies Elevated serum homocysteine Heparin-induced thrombocytopenia Other congenital or acquired thrombophilia Stroke (< 1 month) Elective arthroplasty Hip, pelvis, or leg fracture Acute spinal cord injury (< 1 month) Prophylaxis Regimen: Total Risk Factor Score Risk Level Prophylaxis Regimen 0-1 Low Early ambulation 2 Moderate Order ONE of the following: *Sequential Compression Device (SCD) *Heparin 5000 units SQ BID 3-4 Higher Order ONE of the following medications: *Heparin 5000 units SQ TID *Enoxaparin/Lovenox 40 mg SQ daily (WT < 150 kg, CrCl > 30 mL/min) *Enoxaparin/Lovenox 30 mg SQ daily (WT < 150 kg, CrCl > 10-29 mL/min) *Enoxaparin/Lovenox 30 mg SQ BID (WT < 150 kg, CrCl > 30 mL/min) AND/OR *Sequential Compression Device (SCD) 5 or more Highest Order ONE of the following medications: *Heparin 5000 units SQ TID (Preferred with Epidurals) *Enoxaparin/Lovenox 40 mg SQ daily (WT < 150 kg, CrCl > 30 mL/min) *Enoxaparin/Lovenox 30 mg SQ daily (WT < 150 kg, CrCl > 10-29 mL/min) *Enoxaparin/Lovenox 30 mg SQ BID (WT < 150 kg, CrCl > 30 mL/min) AND *Sequential Compression Device (SCD) Assessment and Plan - Assessment (1) Metabolic acidosis Code(s): E87.2 - Acidosis Status: Acute (2) Closed fracture of proximal end of right humerus Code(s): S42.201A - Unspecified fracture of upper end of right humerus, initial encounter for closed fracture Status: Acute - Plan 62-year-old male admitted secondary to anion gap metabolic acidosis and subacute right proximal humerus fracture Anion gap metabolic acidosis Secondary to alcoholism Patient counseled to quit IV hydration overnight has resolved his condition Right shoulder pain Subacute right proximal humerus fracture Limited treatments due to alcoholism Alcoholism [facility] protocol Patient counseled to quit Monitor for delirium tremens Frequent falls Physical therapy evaluation Occupational Therapy evaluation DVT prophylaxis SCDs and Lovenox (2) Closed fracture of proximal end of right humerus Qualifiers: Encounter type: subsequent encounter Fracture morphology: other fracture Fracture alignment: displaced Fracture healing: with routine healing Qualified Code(s): S42.291D - Other displaced fracture of upper end of right humerus, subsequent encounter for fracture with routine healing
[2017-12-25] MEDS: Insulin NovoLOG Aspart Correctional Sugar Inj SQ SCH ×4 (09:55→21:27)
[2017-12-25] MEDS: Enoxaparin Inj 40 MG/0.4 ML Syringe SQ SCH (09:57)
[2017-12-25] MEDS: Folic Acid 1 MG Tablet PO SCH (09:57)
[2017-12-25] MEDS: LORazepam 1 MG Tablet PO PRN (10:05)
[2017-12-25] MEDS: oxyCODONE/Acetaminophen 10/325 Tablet PO PRN ×2 (12:02→19:31)
[2017-12-26] MEDS: Sod Chloride 0.9% Inj 1,000 ML IV.CONT SCH ×3 (03:22→22:33)
[2017-12-26] MEDS: Insulin NovoLOG Aspart Correctional Sugar Inj SQ SCH ×4 (08:13→22:00)
[2017-12-26] MEDS: Enoxaparin Inj 40 MG/0.4 ML Syringe SQ SCH (08:20)
[2017-12-26] MEDS: Folic Acid 1 MG Tablet PO SCH (08:20)
--- NOTE | 2017-12-26 11:29 | P.PNIM ---
Subjective Interval history: Patient transition to intermediate care status and transferred to the ICU yesterday due to initiation and progression of delirium tremens. Currently he is requiring a high relative dose of lorazepam to control his symptoms. He still complains of right shoulder pain but has better control with Percocet. No other complaints today. Physical Exam Vital signs: Vital Signs 12/25/17 12:00 12/25/17 16:00 12/25/17 20:00 Temperature 98.0 F 97.0 F L 97.6 F Pulse Rate 74 65 72 Respiratory Rate 18 18 20 Blood Pressure 113/74 114/76 115/73 Pulse Oximetry 96 96 94 L 12/26/17 00:00 12/26/17 09:14 Temperature 97 F L Pulse Rate 66 98 H Respiratory Rate 20 13 Blood Pressure 135/75 Pulse Oximetry 96 94 L Intake & Output 12/25/17 12/26/17 12/26/17 18:59 06:59 18:59 Intake Total 2980 / 2980 720 / 720 Output Total 250 / 250 Balance 2980 / 2980 470 / 470 Weight 77.5 kg Intake: IV 1999 NS Inj 1,000 ML @ 125 mls/hr IV 1999 .CONT .Q8H ALIYAH Rx#:[id number] Oral 980 / 980 720 / 720 Output: Urine 250 / 250 Other: # Voids 3 # Bowel Movements 1 Narrative: GENERAL: NAD, A&Ox2, global tremor. HEAD: Normocephalic. NECK: Supple, trachea midline. No lymphadenopathy. EYES: No scleral icterus. No injection or drainage. CARDIOVASCULAR: Regular rate and rhythm without murmurs, gallops, or rubs. RESPIRATORY: Breath sounds equal bilaterally. No accessory muscle use. GASTROINTESTINAL: Abdomen soft, non-tender, nondistended. MUSCULOSKELETAL: No cyanosis, or edema. Right arm is in sling. SKIN: Warm and dry. NEURO: No focal neurological deficits. Results - Labs CBC & Chem 7: 12/25/17 06:35 12/25/17 06:35 Laboratory Results - last 24 hr 12/25/17 12/26/17 19:30 07:50 POC Glucose 164 H 103 Assessment and Plan - Assessment (1) Metabolic acidosis Code(s): E87.2 - Acidosis Status: Acute (2) Closed fracture of proximal end of right humerus Code(s): S42.201A - Unspecified fracture of upper end of right humerus, initial encounter for closed fracture Status: Acute - Plan 62-year-old male admitted secondary to anion gap metabolic acidosis and subacute right proximal humerus fracture Anion gap metabolic acidosis Improved Secondary to alcoholism Patient counseled to quit abusing alcohol Right shoulder pain Subacute right proximal humerus fracture Limited treatments due to alcoholism Continue pain treatment as needed for entheses Percocet) Alcoholism Delirium tremens CIWA protocol Patient counseled to quit Monitor for delirium tremens Scheduled Librium added 12/26/2017 Folic acid Thiamine Frequent falls Physical therapy Occupational Therapy DVT prophylaxis SCDs and Lovenox (2) Closed fracture of proximal end of right humerus Qualifiers: Encounter type: subsequent encounter Fracture morphology: other fracture Fracture alignment: displaced Fracture healing: with routine healing Qualified Code(s): S42.291D - Other displaced fracture of upper end of right humerus, subsequent encounter for fracture with routine healing
[2017-12-26] MEDS: Morphine Sulfate Inj 2 MG/ML Vial IV.PUSH PRN (18:27)
[2017-12-26] MEDS: oxyCODONE/Acetaminophen 10/325 Tablet PO PRN (20:39)
[2017-12-27] MEDS: oxyCODONE/Acetaminophen 10/325 Tablet PO PRN ×3 (03:21→21:27)
[2017-12-27 04:58] LABS: Baso % (Auto) 0.5 % (0.0-2.0); Eos # (Auto) 0.1 th/mm3 (0.0-0.4); Eos % (Auto) 1.6 % (0.0-4.0); Hematocrit 25.3 % (39.0-51.0); Hemoglobin 8.7 gm/dL (13.0-17.0); Lymph # (Auto) 1.4 th/mm3 (1.0-4.8); Lymph % (Auto) 32.8 % (9.0-44.0); Mean Corpuscular HGB Conc 34.6 % (32.0-36.0); Mean Corpuscular Hemoglobin 39.4 pg (27.0-34.0); Mean Corpuscular Volume 113.9 fL (80.0-100.0); Mean Platelet Volume 7.5 fL (7.0-11.0); Mono # (Auto) 0.4 th/mm3 (0.0-0.9); Mono % (Auto) 10.2 % (0.0-8.0); Neut # (Auto) 2.4 th/mm3 (1.8-7.7); Neut % (Auto) 54.9 % (16.0-70.0); Platelet Count 133 th/mm3 (150-450); Red Blood Count 2.22 mil/mm3 (4.50-5.90); Red Cell Distribution Width 13.4 % (11.6-17.2); White Blood Count 4.3 th/mm3 (4.0-11.0)
[2017-12-27] MEDS: Sod Chloride 0.9% Inj 1,000 ML IV.CONT SCH ×3 (05:01→21:20)
[2017-12-27 05:06] LABS: Chloride 104 meq/L (98-107); Potassium 3.3 meq/L (3.5-5.1); Sodium 140 meq/L (136-145)
[2017-12-27 05:29] LABS: Alanine Aminotransferase 73 U/L (12-78); Albumin 2.8 g/dL (3.4-5.0); Alkaline Phosphatase 56 U/L (45-117); Anion Gap 10 meq/L (5-15); Aspartate Aminotransferase 68 U/L (15-37); Blood Urea Nitrogen 3 mg/dL (7-18); Calcium 7.6 mg/dL (8.5-10.1); Carbon Dioxide 26.4 meq/L (21.0-32.0); Glomerular Filtration Rate Greater Than 89 mL/min (>89); Glucose,Random 93 mg/dL (74-106); Total Protein 6.1 g/dL (6.4-8.2)
[2017-12-27] MEDS: Folic Acid 1 MG Tablet PO SCH (09:04)
[2017-12-27] MEDS: Enoxaparin Inj 40 MG/0.4 ML Syringe SQ SCH (09:04)
[2017-12-27] MEDS: Insulin NovoLOG Aspart Correctional Sugar Inj SQ SCH (09:07)
--- NOTE | 2017-12-27 11:25 | P.PNIM ---
Subjective Interval history: Delirium tremens remains. Mild confusion present. No new complaints from patient. Physical Exam Vital signs: Vital Signs 12/26/17 12:00 12/26/17 16:00 12/26/17 18:48 Temperature 98.6 F 99.0 F Pulse Rate Respiratory Rate 19 Blood Pressure Pulse Oximetry 96 12/26/17 19:00 12/26/17 20:00 12/26/17 20:31 Temperature 98.6 F Pulse Rate 78 76 86 Respiratory Rate 16 13 16 Blood Pressure 104/74 128/83 Pulse Oximetry 99 98 12/26/17 22:21 12/27/17 00:00 12/27/17 04:01 Temperature 99.1 F 98.5 F Pulse Rate 66 78 70 Respiratory Rate 24 20 14 Blood Pressure 134/82 116/84 104/63 Pulse Oximetry 12/27/17 06:00 12/27/17 07:00 12/27/17 08:00 Temperature 98.3 F Pulse Rate 70 66 64 Respiratory Rate 15 13 15 Blood Pressure Pulse Oximetry 12/27/17 08:01 12/27/17 09:00 Temperature Pulse Rate 62 62 Respiratory Rate 19 12 Blood Pressure 112/75 Pulse Oximetry Intake & Output 12/26/17 12/27/17 12/27/17 18:59 06:59 18:59 Intake Total 480 / 480 2500 / 2500 Output Total 220 / 220 1100 / 1100 Balance 260 / 260 1400 / 1400 Weight 79.3 kg Intake: IV 1999 NS Inj 1,000 ML @ 125 mls/hr IV 1999 .CONT .Q8H ALIYAH Rx#:[id number] Oral 480 / 480 500 / 500 Output: Urine 220 / 220 1100 / 1100 Other: # Bowel Movements 0 Narrative: GENERAL: NAD, A&Ox2, global tremor. HEAD: Normocephalic. NECK: Supple, trachea midline. No lymphadenopathy. EYES: No scleral icterus. No injection or drainage. CARDIOVASCULAR: Regular rate and rhythm without murmurs, gallops, or rubs. RESPIRATORY: Breath sounds equal bilaterally. No accessory muscle use. GASTROINTESTINAL: Abdomen soft, non-tender, nondistended. MUSCULOSKELETAL: No cyanosis, or edema. Right arm is in sling. SKIN: Warm and dry. NEURO: No focal neurological deficits. Results - Labs CBC & Chem 7: 12/27/17 04:45 12/27/17 04:45 Laboratory Results - last 24 hr 12/26/17 12/26/17 12/26/17 11:59 16:05 22:00 CBC w Diff WBC RBC Hgb Hct MCV MCH MCHC RDW Plt Count MPV Neut % (Auto) Lymph % (Auto) [place] % (Auto) Eos % (Auto) Baso % (Auto) Neut # (Auto) Lymph # (Auto) [place] # (Auto) Eos # (Auto) Baso # (Auto) WBC Differential Differential Comment Sodium Potassium Chloride Carbon Dioxide Anion Gap BUN Creatinine Estimated GFR POC Glucose 118 H 113 H 95 Random Glucose Calcium Total Bilirubin AST ALT Alkaline Phosphatase Total Protein Albumin 12/27/17 12/27/17 12/27/17 04:45 04:45 08:05 CBC w Diff Auto diff final WBC 4.3 RBC 2.22 L Hgb 8.7 L Hct 25.3 L MCV 113.9 H MCH 39.4 H MCHC 34.6 RDW 13.4 Plt Count 133 L D MPV 7.5 Neut % (Auto) 54.9 Lymph % (Auto) 32.8 [place] % (Auto) 10.2 H Eos % (Auto) 1.6 Baso % (Auto) 0.5 Neut # (Auto) 2.4 Lymph # (Auto) 1.4 [place] # (Auto) 0.4 Eos # (Auto) 0.1 Baso # (Auto) 0.0 WBC Differential . Differential Comment . Sodium 140 Potassium 3.3 L Chloride 104 Carbon Dioxide 26.4 Anion Gap 10 BUN 3 L Creatinine 0.60 Estimated GFR Greater than 89 POC Glucose 95 Random Glucose 93 Calcium 7.6 L D Total Bilirubin 1.5 H AST 68 H ALT 73 Alkaline Phosphatase 56 Total Protein 6.1 L D Albumin 2.8 L Assessment and Plan - Assessment (1) Metabolic acidosis Code(s): E87.2 - Status: Acute (2) Closed fracture of proximal end of right humerus Code(s): S42.201A - Status: Acute - Plan 62-year-old male admitted secondary to anion gap metabolic acidosis and subacute right proximal humerus fracture Anion gap metabolic acidosis Improved Secondary to alcoholism Patient counseled to quit abusing alcohol Right shoulder pain Subacute right proximal humerus fracture Limited treatments due to alcoholism Continue pain treatment as needed Alcoholism Delirium tremens Delirium tremens not yet improving Following ICU Continue Librium CIWA protocol Patient counseled to quit alcohol abuse Folic acid Thiamine Frequent falls Physical therapy Occupational Therapy DVT prophylaxis SCDs and Lovenox (2) Closed fracture of proximal end of right humerus Qualifiers: Encounter type: subsequent encounter Fracture morphology: other fracture Fracture alignment: displaced Fracture healing: with routine healing Qualified Code(s): S42.291D - Other displaced fracture of upper end of right humerus, subsequent encounter for fracture with routine healing
[2017-12-28] MEDS: oxyCODONE/Acetaminophen 10/325 Tablet PO PRN ×5 (02:37→21:52)
[2017-12-28 05:01] LABS: Baso # (Auto) 0.1 th/mm3 (0.0-0.2); Baso % (Auto) 1.3 % (0.0-2.0); Eos # (Auto) 0.1 th/mm3 (0.0-0.4); Eos % (Auto) 1.5 % (0.0-4.0); Hematocrit 26.5 % (39.0-51.0); Hemoglobin 8.6 gm/dL (13.0-17.0); Lymph # (Auto) 1.2 th/mm3 (1.0-4.8); Lymph % (Auto) 29.4 % (9.0-44.0); Mean Corpuscular HGB Conc 32.5 % (32.0-36.0); Mean Corpuscular Hemoglobin 37.5 pg (27.0-34.0); Mean Corpuscular Volume 115.4 fL (80.0-100.0); Mean Platelet Volume 7.4 fL (7.0-11.0); Mono # (Auto) 0.4 th/mm3 (0.0-0.9); Mono % (Auto) 10.8 % (0.0-8.0); Neut # (Auto) 2.4 th/mm3 (1.8-7.7); Platelet Count 175 th/mm3 (150-450); Red Blood Count 2.29 mil/mm3 (4.50-5.90); Red Cell Distribution Width 13.6 % (11.6-17.2); White Blood Count 4.2 th/mm3 (4.0-11.0)
[2017-12-28 05:09] LABS: Chloride 106 meq/L (98-107); Potassium 3.2 meq/L (3.5-5.1); Sodium 142 meq/L (136-145)
[2017-12-28 05:14] LABS: Albumin 2.6 g/dL (3.4-5.0); Anion Gap 10 meq/L (5-15); Blood Urea Nitrogen 4 mg/dL (7-18); Calcium 7.8 mg/dL (8.5-10.1); Glucose,Random 94 mg/dL (74-106)
[2017-12-28 05:17] LABS: Alanine Aminotransferase 67 U/L (12-78); Aspartate Aminotransferase 52 U/L (15-37); Glomerular Filtration Rate Greater Than 89 mL/min (>89)
[2017-12-28 05:19] LABS: Alkaline Phosphatase 59 U/L (45-117)
[2017-12-28] MEDS: Sod Chloride 0.9% Inj 1,000 ML IV.CONT SCH ×3 (05:28→21:48)
--- NOTE | 2017-12-28 08:09 | P.PNIM ---
Subjective Interval history: No significant improvement in delirium tremens. Patient remains confused while awake but has inability to rest. No other complaints. Physical Exam Vital signs: Vital Signs 12/27/17 09:00 12/27/17 10:00 12/27/17 11:01 Temperature Pulse Rate 62 62 130 H Respiratory Rate 12 17 19 Blood Pressure Pulse Oximetry 12/27/17 12:00 12/27/17 12:01 12/27/17 13:00 Temperature Pulse Rate 64 64 62 Respiratory Rate 13 18 14 Blood Pressure 131/81 Pulse Oximetry 12/27/17 14:00 12/27/17 14:05 12/27/17 15:00 Temperature Pulse Rate 114 H 62 Respiratory Rate 24 16 11 L Blood Pressure Pulse Oximetry 12/27/17 16:00 12/27/17 16:01 12/27/17 19:00 Temperature Pulse Rate 58 L 58 L 70 Respiratory Rate 13 9 L 15 Blood Pressure 107/71 Pulse Oximetry 12/27/17 20:00 12/28/17 00:00 12/28/17 04:00 Temperature 98.6 F 98 F 100.7 F H Pulse Rate 56 L 60 60 Respiratory Rate 7 L 20 24 Blood Pressure 138/82 119/80 118/78 Pulse Oximetry 99 12/28/17 05:00 12/28/17 06:00 12/28/17 07:00 Temperature Pulse Rate 62 64 60 Respiratory Rate 30 H 8 L 13 Blood Pressure Pulse Oximetry 12/28/17 07:35 Temperature Pulse Rate Respiratory Rate 13 Blood Pressure Pulse Oximetry Intake & Output 12/27/17 12/28/17 12/28/17 18:59 06:59 18:59 Intake Total 1150 / 1150 2019 Output Total 900 / 900 1400 / 1400 Balance 250 / 250 620 / 620 Weight 78.4 kg Intake: IV 500 / 500 1500 / 1500 NS Inj 1,000 ML @ 125 mls/hr IV 500 / 500 1500 / 1500 .CONT .Q8H ALIYAH Rx#:[id number] Oral 650 / 650 520 / 520 Output: Urine 900 / 900 1400 / 1400 Other: # Bowel Movements 0 Narrative: GENERAL: NAD, A&Ox2, global tremor. HEAD: Normocephalic. NECK: Supple, trachea midline. No lymphadenopathy. EYES: No scleral icterus. No injection or drainage. CARDIOVASCULAR: Regular rate and rhythm without murmurs, gallops, or rubs. RESPIRATORY: Breath sounds equal bilaterally. No accessory muscle use. GASTROINTESTINAL: Abdomen soft, non-tender, nondistended. MUSCULOSKELETAL: No cyanosis, or edema. Right arm is in sling. SKIN: Warm and dry. NEURO: No focal neurological deficits. Results - Labs CBC & Chem 7: 12/28/17 04:40 12/28/17 04:40 Laboratory Results - last 24 hr 12/27/17 12/28/17 12/28/17 08:05 04:40 04:40 CBC w Diff Auto diff final WBC 4.2 RBC 2.29 L Hgb 8.6 L Hct 26.5 L MCV 115.4 H MCH 37.5 H MCHC 32.5 RDW 13.6 Plt Count 175 D MPV 7.4 Neut % (Auto) 57.0 Lymph % (Auto) 29.4 [place] % (Auto) 10.8 H Eos % (Auto) 1.5 Baso % (Auto) 1.3 Neut # (Auto) 2.4 Lymph # (Auto) 1.2 [place] # (Auto) 0.4 Eos # (Auto) 0.1 Baso # (Auto) 0.1 WBC Differential . Differential Comment . Sodium 142 Potassium 3.2 L Chloride 106 Carbon Dioxide 26.0 Anion Gap 10 BUN 4 L Creatinine 0.56 L Estimated GFR Greater than 89 POC Glucose 95 Random Glucose 94 Calcium 7.8 L Total Bilirubin 1.3 H AST 52 H ALT 67 Alkaline Phosphatase 59 Total Protein 6.0 L Albumin 2.6 L Assessment and Plan - Assessment (1) Metabolic acidosis Code(s): E87.2 - Acidosis Status: Acute (2) Closed fracture of proximal end of right humerus Code(s): S42.201A - Unspecified fracture of upper end of right humerus, initial encounter for closed fracture Status: Acute - Plan 62-year-old male admitted secondary to anion gap metabolic acidosis and subacute right proximal humerus fracture No improvement in delirium tremens. Continue to monitor carefully in ICU. Monitor for any seizures. Continue Librium and CIWA protocol. Plan to resume PT when patient's orientation improves. Anion gap metabolic acidosis Improved Secondary to alcoholism Patient counseled to quit abusing alcohol Right shoulder pain Subacute right proximal humerus fracture Limited treatments due to alcoholism Continue pain treatment as needed Alcoholism Delirium tremens Delirium tremens not yet improving Following ICU Continue Librium CIWA protocol Patient counseled to quit alcohol abuse Folic acid Thiamine Frequent falls Physical therapy Occupational Therapy DVT prophylaxis SCDs and Lovenox (2) Closed fracture of proximal end of right humerus Qualifiers: Encounter type: subsequent encounter Fracture morphology: other fracture Fracture alignment: displaced Fracture healing: with routine healing Qualified Code(s): S42.291D - Other displaced fracture of upper end of right humerus, subsequent encounter for fracture with routine healing
[2017-12-28] MEDS: Folic Acid 1 MG Tablet PO SCH (08:51)
[2017-12-28] MEDS: Enoxaparin Inj 40 MG/0.4 ML Syringe SQ SCH (08:51)
[2017-12-28] MEDS: LORazepam 1 MG Tablet PO PRN (21:05)
--- NOTE | 2017-12-28 21:38 | P.PN ---
Subjective Interval history: NOT SEEN Physical Exam Vital signs: Vital Signs 12/28/17 00:00 12/28/17 04:00 12/28/17 05:00 Temperature 98 F 100.7 F H Pulse Rate 60 60 62 Respiratory Rate 20 24 30 H Blood Pressure 119/80 118/78 Pulse Oximetry 99 12/28/17 06:00 12/28/17 07:00 12/28/17 07:35 Temperature Pulse Rate 64 60 Respiratory Rate 8 L 13 13 Blood Pressure Pulse Oximetry 12/28/17 08:00 12/28/17 12:15 12/28/17 18:00 Temperature 98.7 F 97.9 F 98.1 F Pulse Rate 58 L 56 L 72 Respiratory Rate 37 H 21 12 Blood Pressure 138/83 119/76 Pulse Oximetry Intake & Output 12/28/17 12/28/17 12/29/17 06:59 18:59 06:59 Intake Total 2019 / 2020 1520 / 1520 Output Total 1400 / 1400 1400 / 1400 Balance 620 / 620 120 / 120 Weight 78.4 kg Intake: IV 1500 / 1500 1000 / 1000 NS Inj 1,000 ML @ 125 mls/hr IV 1500 / 1500 1000 / 1000 .CONT .Q8H ALIYAH Rx#:[id number] Oral 520 / 520 520 / 520 Output: Urine 1400 / 1400 1400 / 1400 Other: # Voids 3 Date of Last Bowel Movement 12/28/17 # Bowel Movements 0 0 Narrative: GENERAL: NAD, A&Ox2, global tremor. HEAD: Normocephalic. NECK: Supple, trachea midline. No lymphadenopathy. EYES: No scleral icterus. No injection or drainage. CARDIOVASCULAR: Regular rate and rhythm without murmurs, gallops, or rubs. RESPIRATORY: Breath sounds equal bilaterally. No accessory muscle use. GASTROINTESTINAL: Abdomen soft, non-tender, nondistended. MUSCULOSKELETAL: No cyanosis, or edema. Right arm is in sling. SKIN: Warm and dry. NEURO: No focal neurological deficits. Results - Labs CBC & Chem 7: 12/28/17 04:40 12/28/17 04:40 Laboratory Results - last 24 hr 12/28/17 12/28/17 04:40 04:40 CBC w Diff Auto diff final WBC 4.2 RBC 2.29 L Hgb 8.6 L Hct 26.5 L MCV 115.4 H MCH 37.5 H MCHC 32.5 RDW 13.6 Plt Count 175 D MPV 7.4 Neut % (Auto) 57.0 Lymph % (Auto) 29.4 [place] % (Auto) 10.8 H Eos % (Auto) 1.5 Baso % (Auto) 1.3 Neut # (Auto) 2.4 Lymph # (Auto) 1.2 [place] # (Auto) 0.4 Eos # (Auto) 0.1 Baso # (Auto) 0.1 WBC Differential . Differential Comment . Sodium 142 Potassium 3.2 L Chloride 106 Carbon Dioxide 26.0 Anion Gap 10 BUN 4 L Creatinine 0.56 L Estimated GFR Greater than 89 Random Glucose 94 Calcium 7.8 L Total Bilirubin 1.3 H AST 52 H ALT 67 Alkaline Phosphatase 59 Total Protein 6.0 L Albumin 2.6 L - Imaging ITS Impressions Shoulder X-Ray 12/24/17 16:56 CONCLUSION: 1. Comminuted mildly displaced proximal right humeral neck fracture. 2. Questionable abnormality of the acromioclavicular joint with joint space widening and apparent depression of the distal right clavicle. Assessment and Plan - Assessment (1) Metabolic acidosis Code(s): E87.2 - Acidosis Status: Acute (2) Closed fracture of proximal end of right humerus Code(s): S42.201A - Unspecified fracture of upper end of right humerus, initial encounter for closed fracture Status: Acute - Plan 62-year-old male admitted secondary to anion gap metabolic acidosis and subacute right proximal humerus fracture No improvement in delirium tremens. Continue to monitor carefully in ICU. Monitor for any seizures. Continue Librium and CIWA protocol. Plan to resume PT when patient's orientation improves. Anion gap metabolic acidosis Improved Secondary to alcoholism Patient counseled to quit abusing alcohol Right shoulder pain Subacute right proximal humerus fracture Limited treatments due to alcoholism Continue pain treatment as needed Alcoholism Delirium tremens Delirium tremens not yet improving Following ICU Continue Librium CIWA protocol Patient counseled to quit alcohol abuse Folic acid Thiamine Frequent falls Physical therapy Occupational Therapy DVT prophylaxis SCDs and Lovenox (2) Closed fracture of proximal end of right humerus Qualifiers: Encounter type: subsequent encounter Fracture morphology: other fracture Fracture alignment: displaced Fracture healing: with routine healing Qualified Code(s): S42.291D - Other displaced fracture of upper end of right humerus, subsequent encounter for fracture with routine healing
[2017-12-29] MEDS: oxyCODONE/Acetaminophen 10/325 Tablet PO PRN ×3 (02:54→11:59)
[2017-12-29] MEDS: Enoxaparin Inj 40 MG/0.4 ML Syringe SQ SCH ×2 (07:58→09:49)
[2017-12-29] MEDS: Folic Acid 1 MG Tablet PO SCH ×2 (07:58→09:49)
[2017-12-29] MEDS ORDERED: Magnesium Sulfate Inj 4 GM in Sodium Chlor 0.9% Inj 92 ML IV.SIG PRN (09:59)
[2017-12-29] MEDS ORDERED: Potassium Chlor 40 mEq Premix 40 MEQ/100 ML PIGGYBACK IV.SIG PRN ×2 (09:59)
[2017-12-29] MEDS ORDERED: Magnesium Oxide 400 MG Tablet PO PRN (09:59)
[2017-12-29] MEDS ORDERED: Potassium Chlor 20 mEq Premix 20 MEQ/100 ML PIGGYBACK IV.SIG PRN (09:59)
[2017-12-29] MEDS ORDERED: Potassium Chloride 25 MEQ Effervescent Tablet PO PRN (09:59)
[2017-12-29] MEDS ORDERED: Sodium Phosphate Inj 30 MMOL in Sodium Chlor 0.9% Inj 250 ML IV.SIG PRN (09:59)
[2017-12-29] MEDS ORDERED: Potassium Phosphate Inj 30 MMOL in Sodium Chlor 0.9% Inj 250 ML IV.SIG PRN (09:59)
[2017-12-29] MEDS ORDERED: Potassium Phosphate 500 MG Soluble Tablet PO PRN ×2 (09:59)
[2017-12-29] MEDS ORDERED: Magnesium Sulfate Inj 2 GM in Sodium Chlor 0.9% Inj 96 ML IV.SIG PRN (09:59)
[2017-12-29 11:22] LABS: Chloride 104 meq/L (98-107); Sodium 140 meq/L (136-145)
[2017-12-29 11:25] LABS: Anion Gap 8 meq/L (5-15); Blood Urea Nitrogen 5 mg/dL (7-18); Calcium 7.8 mg/dL (8.5-10.1); Carbon Dioxide 27.7 meq/L (21.0-32.0); Glucose,Random 111 mg/dL (74-106); Magnesium 1.9 mg/dL (1.5-2.5)
[2017-12-29 11:29] LABS: Glomerular Filtration Rate Greater Than 89 mL/min (>89); Phosphorus 3.1 mg/dL (2.5-4.9)
[2017-12-29] MEDS: Potassium Chlor 20 mEq Premix 20 MEQ/100 ML PIGGYBACK IV.SIG PRN ×2 (11:59→14:08)
--- NOTE | 2017-12-29 14:27 | P.PN ---
Subjective Interval history: Follow-up alcohol withdrawal. Patient denies hallucinations. Tolerating Librium. His only complaint is right shoulder pain denies numbness of the right fingers. 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 Physical Exam Vital signs: Vital Signs 12/28/17 18:00 12/28/17 20:00 12/29/17 00:00 Temperature 98.1 F 98.6 F 98.6 F Pulse Rate 72 64 64 Respiratory Rate 12 24 22 Blood Pressure 119/76 147/84 H 147/83 H Pulse Oximetry 95 95 12/29/17 04:00 12/29/17 08:00 12/29/17 12:00 Temperature 98 F 99.1 F 98.5 F Pulse Rate 60 75 75 Respiratory Rate 16 15 15 Blood Pressure 119/80 148/95 H 104/81 Pulse Oximetry 97 75 L Intake & Output 12/28/17 12/29/17 12/29/17 18:59 06:59 18:59 Intake Total 1520 / 1520 1440 / 1440 100 / 100 Output Total 1400 / 1400 500 / 500 Balance 120 / 120 1440 / 1440 -400 / -400 Weight 78 kg Intake: IV 1000 / 1000 1000 / 1000 100 / 100 NS Inj 1,000 ML @ 125 mls/hr IV 1000 / 1000 1000 / 1000 .CONT .Q8H ALIYAH Rx#:[id number] KCl 20 mEq Premix Inj 20 meq In 100 / 100 100 ml @ 50 mls/hr IV.SIG Q2H PRN Rx#:[id number] Oral 520 / 520 440 / 440 Output: Urine 1400 / 1400 500 / 500 Other: # Voids 3 4 Date of Last Bowel Movement 12/28/17 12/28/17 # Bowel Movements 0 0 Narrative: GENERAL: NAD, A&Ox3 CARDIOVASCULAR: Regular rate and rhythm without murmurs, gallops, or rubs. RESPIRATORY: Breath sounds equal bilaterally. No accessory muscle use. GASTROINTESTINAL: Abdomen soft, non-tender, nondistended. MUSCULOSKELETAL: No cyanosis, or edema. Right arm is in sling. Ecchymosis right shoulder SKIN: Warm and dry. NEURO: No focal neurological deficits. Results - Labs CBC & Chem 7: 12/28/17 04:40 12/29/17 11:10 Laboratory Results - last 24 hr 12/29/17 11:10 Sodium 140 Potassium 3.0 L Chloride 104 Carbon Dioxide 27.7 Anion Gap 8 BUN 5 L Creatinine 0.69 Estimated GFR Greater than 89 Random Glucose 111 H Calcium 7.8 L Phosphorus 3.1 Magnesium 1.9 - Imaging ITS Impressions Shoulder X-Ray 12/24/17 16:56 CONCLUSION: 1. Comminuted mildly displaced proximal right humeral neck fracture. 2. Questionable abnormality of the acromioclavicular joint with joint space widening and apparent depression of the distal right clavicle. - Procedures none Assessment and Plan - Assessment (1) Metabolic acidosis Code(s): E87.2 - Acidosis Status: Acute (2) Closed fracture of proximal end of right humerus Code(s): S42.201A - Unspecified fracture of upper end of right humerus, initial encounter for closed fracture Status: Acute - Plan 62-year-old male admitted secondary to anion gap metabolic acidosis and subacute right proximal humerus fracture Anion gap metabolic acidosis Resolved Secondary to alcoholism Patient counseled to quit abusing alcohol Right shoulder pain Subacute right proximal humerus fracture Limited treatments due to alcoholism Continue pain treatment as needed Per orthopedic surgery outpatient follow-up Alcoholism Delirium tremens Delirium tremens improving Transfer out of ICU Wean Librium CIWA protocol Patient counseled to quit alcohol abuse Folic acid Thiamine Frequent falls Physical therapy Occupational Therapy DVT prophylaxis SCDs and Lovenox Discharge Planning: No payor source for rehab. Discharge to community when safe (2) Closed fracture of proximal end of right humerus Qualifiers: Encounter type: subsequent encounter Fracture morphology: other fracture Fracture alignment: displaced Fracture healing: with routine healing Qualified Code(s): S42.291D - Other displaced fracture of upper end of right humerus, subsequent encounter for fracture with routine healing
[2017-12-30] MEDS: oxyCODONE/Acetaminophen 10/325 Tablet PO PRN ×6 (00:09→22:39)
[2017-12-30 05:17] LABS: Chloride 105 meq/L (98-107); Potassium 3.4 meq/L (3.5-5.1); Sodium 141 meq/L (136-145)
[2017-12-30 05:21] LABS: Anion Gap 8 meq/L (5-15); Carbon Dioxide 28.1 meq/L (21.0-32.0); Glucose,Random 97 mg/dL (74-106); Magnesium 1.9 mg/dL (1.5-2.5)
[2017-12-30 05:22] LABS: Blood Urea Nitrogen 5 mg/dL (7-18)
[2017-12-30 05:25] LABS: Glomerular Filtration Rate Greater Than 89 mL/min (>89)
[2017-12-30] MEDS: Folic Acid 1 MG Tablet PO SCH (08:45)
[2017-12-30] MEDS: Enoxaparin Inj 40 MG/0.4 ML Syringe SQ SCH (08:45)
--- NOTE | 2017-12-30 11:58 | P.PN ---
Subjective Interval history: Follow-up alcohol withdrawal. Patient was confused late yesterday afternoon with high CIWA. Librium has been increased. Today he is feeling okay except for right shoulder pain. Denies hallucinations. PT recommended inpatient rehabilitation only ambulated 4 feet Physical Exam Vital signs: Vital Signs 12/29/17 12:00 12/29/17 16:00 12/29/17 20:00 Temperature 98.5 F 98.5 F Pulse Rate 75 75 66 Respiratory Rate 15 15 15 Blood Pressure 104/81 104/81 140/80 Pulse Oximetry 75 L 97 96 12/29/17 21:00 12/30/17 00:00 12/30/17 05:00 Temperature 98.5 F 97.9 F Pulse Rate 72 66 90 Respiratory Rate 16 16 18 Blood Pressure 118/77 126/84 154/71 H Pulse Oximetry 97 96 96 12/30/17 08:00 12/30/17 10:13 12/30/17 11:54 Temperature 98.4 F 98.4 F Pulse Rate Respiratory Rate 12 Blood Pressure Pulse Oximetry Intake & Output 12/29/17 12/30/17 12/30/17 18:59 06:59 18:59 Intake Total 640 / 640 240 / 240 Output Total 1000 / 1000 900 / 900 300 / 300 Balance -360 / -360 -900 / -900 -60 / -60 Weight 78.2 kg Intake: IV 200 / 200 KCl 20 mEq Premix Inj 20 meq In 200 / 200 100 ml @ 50 mls/hr IV.SIG Q2H PRN Rx#:[id number] Oral 440 / 440 240 / 240 Output: Urine 1000 / 1000 900 / 900 300 / 300 Other: # Voids 4 Date of Last Bowel Movement 12/28/17 12/29/17 12/29/17 # Bowel Movements 0 Narrative: GENERAL: NAD, A&Ox3 CARDIOVASCULAR: Regular rate and rhythm without murmurs, gallops, or rubs. RESPIRATORY: Breath sounds equal bilaterally. No accessory muscle use. GASTROINTESTINAL: Abdomen soft, non-tender, nondistended. MUSCULOSKELETAL: No cyanosis, or edema. Right arm is in sling. Ecchymosis right shoulder SKIN: Warm and dry. NEURO: No focal neurological deficits. Results - Labs CBC & Chem 7: 12/28/17 04:40 12/30/17 04:35 Laboratory Results - last 24 hr 12/30/17 04:35 Sodium 141 Potassium 3.4 L Chloride 105 Carbon Dioxide 28.1 Anion Gap 8 BUN 5 L Creatinine 0.65 Estimated GFR Greater than 89 Random Glucose 97 Calcium 8.0 L Phosphorus 3.0 Magnesium 1.9 - Procedures none Assessment and Plan - Assessment (1) Metabolic acidosis Code(s): E87.2 - Acidosis Status: Acute (2) Closed fracture of proximal end of right humerus Code(s): S42.201A - Unspecified fracture of upper end of right humerus, initial encounter for closed fracture Status: Acute - Plan 62-year-old male admitted secondary to anion gap metabolic acidosis and subacute right proximal humerus fracture Anion gap metabolic acidosis Resolved Secondary to alcoholism Patient counseled to quit abusing alcohol Right shoulder pain Subacute right proximal humerus fracture Limited treatments due to alcoholism Continue pain treatment as needed Per orthopedic surgery no surgical intervention at this time. Continue sling and nonweightbearing for the next 3 weeks. Outpatient follow-up in 2 weeks Alcoholism Delirium tremens No hallucinations today after increasing Librium continue current dose of 10 mg every 6 hours. Keep patient in the intermediate care unit CIWA protocol Patient counseled to quit alcohol abuse Folic acid Thiamine Frequent falls Physical therapy Occupational Therapy DVT prophylaxis SCDs and Lovenox Discharge Planning: No payor source for rehab. Discharge to community when safe, will ct PT (2) Closed fracture of proximal end of right humerus Qualifiers: Encounter type: subsequent encounter Fracture morphology: other fracture Fracture alignment: displaced Fracture healing: with routine healing Qualified Code(s): S42.291D - Other displaced fracture of upper end of right humerus, subsequent encounter for fracture with routine healing
[2017-12-31] MEDS: oxyCODONE/Acetaminophen 10/325 Tablet PO PRN ×5 (03:32→20:56)
[2017-12-31 05:55] LABS: Chloride 105 meq/L (98-107); Potassium 3.5 meq/L (3.5-5.1); Sodium 140 meq/L (136-145)
[2017-12-31 05:59] LABS: Calcium 7.9 mg/dL (8.5-10.1)
[2017-12-31 06:00] LABS: Anion Gap 8 meq/L (5-15); Blood Urea Nitrogen 6 mg/dL (7-18); Carbon Dioxide 26.7 meq/L (21.0-32.0); Glucose,Random 95 mg/dL (74-106); Magnesium 1.9 mg/dL (1.5-2.5)
[2017-12-31 06:03] LABS: Glomerular Filtration Rate Greater Than 89 mL/min (>89)
[2017-12-31 06:04] LABS: Phosphorus 3.6 mg/dL (2.5-4.9)
[2017-12-31] MEDS: Folic Acid 1 MG Tablet PO SCH (08:47)
[2017-12-31] MEDS: Enoxaparin Inj 40 MG/0.4 ML Syringe SQ SCH (08:48)
--- NOTE | 2017-12-31 11:49 | P.PN ---
Subjective Interval history: Follow-up alcohol withdrawal and generalized weakness. Patient has no new complaints denies hallucinations received Ativan because of high CIWA score Physical Exam Vital signs: Vital Signs 12/30/17 11:54 12/30/17 12:00 12/30/17 16:00 Temperature 98.4 F 98.3 F 98.0 F Pulse Rate Respiratory Rate Blood Pressure Pulse Oximetry 12/30/17 19:39 12/30/17 20:00 12/30/17 23:13 Temperature Pulse Rate 68 Respiratory Rate 12 16 14 Blood Pressure 120/74 Pulse Oximetry 97 12/31/17 00:00 12/31/17 04:00 12/31/17 04:38 Temperature 97.2 F L 97.7 F Pulse Rate 92 H 68 Respiratory Rate 24 13 15 Blood Pressure 113/73 117/66 Pulse Oximetry 94 L 99 Intake & Output 12/30/17 12/31/17 12/31/17 18:59 06:59 18:59 Intake Total 1200 / 1200 Output Total 1650 / 1650 Balance -450 / -450 Weight 78.6 kg Intake: Oral 1200 / 1200 Output: Urine 1650 / 1650 Other: Post Void Residual 1,400 Date of Last Bowel Movement 12/29/17 12/30/17 Narrative: GENERAL: NAD, A&Ox3 CARDIOVASCULAR: Regular rate and rhythm without murmurs, gallops, or rubs. RESPIRATORY: Breath sounds equal bilaterally. No accessory muscle use. GASTROINTESTINAL: Abdomen soft, non-tender, nondistended. MUSCULOSKELETAL: No cyanosis, or edema. Right arm is in sling. Ecchymosis right shoulder SKIN: Warm and dry. NEURO: No focal neurological deficits. Results - Labs CBC & Chem 7: 12/28/17 04:40 12/31/17 04:23 Laboratory Results - last 24 hr 12/31/17 04:23 Sodium 140 Potassium 3.5 Chloride 105 Carbon Dioxide 26.7 Anion Gap 8 BUN 6 L Creatinine 0.71 Estimated GFR Greater than 89 Random Glucose 95 Calcium 7.9 L Phosphorus 3.6 Magnesium 1.9 - Procedures none Assessment and Plan - Assessment (1) Metabolic acidosis Code(s): E87.2 - Acidosis Status: Acute (2) Closed fracture of proximal end of right humerus Code(s): S42.201A - Unspecified fracture of upper end of right humerus, initial encounter for closed fracture Status: Acute - Plan 62-year-old male admitted secondary to anion gap metabolic acidosis and subacute right proximal humerus fracture Anion gap metabolic acidosis Resolved Secondary to alcoholism Patient counseled to quit abusing alcohol Right shoulder pain Subacute right proximal humerus fracture Limited treatments due to alcoholism Continue pain treatment as needed Per orthopedic surgery no surgical intervention at this time. Continue sling and nonweightbearing for the next 3 weeks. Outpatient follow-up in 2 weeks Alcoholism Delirium tremens No hallucinations today continue Librium 10 mg every 6 hours. Keep patient in the intermediate care unit. He is very impulsive high fall risk CIWA protocol Patient counseled to quit alcohol abuse Folic acid Thiamine Frequent falls Physical therapy Occupational Therapy DVT prophylaxis SCDs and Lovenox Discharge Planning: No payor source for rehab. Discharge to community when safe, will ct PT (2) Closed fracture of proximal end of right humerus Qualifiers: Encounter type: subsequent encounter Fracture morphology: other fracture Fracture alignment: displaced Fracture healing: with routine healing Qualified Code(s): S42.291D - Other displaced fracture of upper end of right humerus, subsequent encounter for fracture with routine healing
[2018-01-01] MEDS: oxyCODONE/Acetaminophen 10/325 Tablet PO PRN ×4 (04:24→18:09)
[2018-01-01 07:05] LABS: Chloride 106 meq/L (98-107); Potassium 3.8 meq/L (3.5-5.1); Sodium 140 meq/L (136-145)
[2018-01-01 07:08] LABS: Anion Gap 7 meq/L (5-15); Blood Urea Nitrogen 6 mg/dL (7-18); Calcium 8.2 mg/dL (8.5-10.1); Glucose,Random 96 mg/dL (74-106); Magnesium 1.7 mg/dL (1.5-2.5)
[2018-01-01 07:11] LABS: Glomerular Filtration Rate Greater Than 89 mL/min (>89)
[2018-01-01 07:12] LABS: Phosphorus 3.7 mg/dL (2.5-4.9)
[2018-01-01] MEDS: Morphine Sulfate Inj 2 MG/ML Vial IV.PUSH PRN ×4 (07:24→22:25)
[2018-01-01] MEDS: Folic Acid 1 MG Tablet PO SCH (08:55)
[2018-01-01] MEDS: Enoxaparin Inj 40 MG/0.4 ML Syringe SQ SCH (08:56)
--- NOTE | 2018-01-01 10:56 | P.PN ---
Subjective Interval history: Follow-up alcohol withdrawal and right arm fracture. Was agitated this morning because of pain. He received Ativan after pain medicine. Physical Exam Vital signs: Vital Signs 12/31/17 12:00 12/31/17 13:03 12/31/17 17:00 Temperature 97.7 F 98.0 F Pulse Rate 72 70 Respiratory Rate 13 12 14 Blood Pressure 106/73 113/74 Pulse Oximetry 12/31/17 20:00 01/01/18 00:00 01/01/18 04:00 Temperature 98.1 F 98.8 F 98.2 F Pulse Rate 80 80 72 Respiratory Rate 17 17 Blood Pressure 112/81 112/81 140/96 H Pulse Oximetry 99 98 98 01/01/18 08:00 Temperature 98.2 F Pulse Rate 69 Respiratory Rate 17 Blood Pressure 119/80 Pulse Oximetry 99 Intake & Output 12/31/17 01/01/18 01/01/18 18:59 06:59 18:59 Intake Total 1000 / 1000 Output Total 1200 / 1200 900 / 900 Balance -200 / -200 -900 / -900 Weight 78.3 kg Intake: Oral 1000 / 1000 Output: Urine 1200 / 1200 900 / 900 Other: Date of Last Bowel Movement 12/31/17 12/31/17 # Bowel Movements 1 Narrative: GENERAL: NAD, A&Ox3 CARDIOVASCULAR: Regular rate and rhythm without murmurs, gallops, or rubs. RESPIRATORY: Breath sounds equal bilaterally. No accessory muscle use. GASTROINTESTINAL: Abdomen soft, non-tender, nondistended. MUSCULOSKELETAL: No cyanosis, or edema. Right arm is in sling. Ecchymosis right shoulder SKIN: Warm and dry. NEURO: No focal neurological deficits. Results - Labs CBC & Chem 7: 12/28/17 04:40 01/01/18 06:27 Laboratory Results - last 24 hr 01/01/18 06:27 Sodium 140 Potassium 3.8 Chloride 106 Carbon Dioxide 27.0 Anion Gap 7 BUN 6 L Creatinine 0.68 Estimated GFR Greater than 89 Random Glucose 96 Calcium 8.2 L Phosphorus 3.7 Magnesium 1.7 - Procedures none Assessment and Plan - Assessment (1) Metabolic acidosis Code(s): E87.2 - Acidosis Status: Acute (2) Closed fracture of proximal end of right humerus Code(s): S42.201A - Unspecified fracture of upper end of right humerus, initial encounter for closed fracture Status: Acute - Plan 62-year-old male admitted secondary to anion gap metabolic acidosis and subacute right proximal humerus fracture Anion gap metabolic acidosis Resolved Secondary to alcoholism Patient counseled to quit abusing alcohol Right shoulder pain Subacute right proximal humerus fracture Limited treatments due to alcoholism Continue pain treatment as needed Per orthopedic surgery no surgical intervention at this time. Continue sling and nonweightbearing for the next 3 weeks. Outpatient follow-up in 2 weeks Alcoholism Delirium tremens No hallucinations today continue Librium 10 mg every 6 hours. Keep patient in the intermediate care unit. He is very impulsive high fall risk CIWA protocol Patient counseled to quit alcohol abuse Folic acid Thiamine Frequent falls Physical therapy Occupational Therapy DVT prophylaxis SCDs and Lovenox Discharge Planning: No payor source for rehab. Discharge to community when safe, will ct PT (2) Closed fracture of proximal end of right humerus Qualifiers: Encounter type: subsequent encounter Fracture morphology: other fracture Fracture alignment: displaced Fracture healing: with routine healing Qualified Code(s): S42.291D - Other displaced fracture of upper end of right humerus, subsequent encounter for fracture with routine healing
[2018-01-02] MEDS: oxyCODONE/Acetaminophen 10/325 Tablet PO PRN ×6 (02:12→21:57)
[2018-01-02] MEDS: Morphine Sulfate Inj 2 MG/ML Vial IV.PUSH PRN ×2 (05:46→23:13)
[2018-01-02] MEDS: Enoxaparin Inj 40 MG/0.4 ML Syringe SQ SCH (09:09)
[2018-01-02] MEDS: Folic Acid 1 MG Tablet PO SCH (09:09)
--- NOTE | 2018-01-02 12:13 | P.PN ---
Subjective Interval history: Follow-up alcohol withdrawal and right humeral fracture. Continues to have right arm pain. Also reports of dizziness which he thinks is coming from 1 of his medications. He is also on scheduled Librium. Improved ambulation per PT but still a fall risk Physical Exam Vital signs: Vital Signs 01/01/18 13:53 01/01/18 16:00 01/01/18 17:04 Temperature 98.0 F Pulse Rate 68 Respiratory Rate 14 12 11 L Blood Pressure 121/79 Pulse Oximetry 99 01/01/18 19:54 01/01/18 22:42 01/02/18 00:00 Temperature 97.8 F 98.3 F Pulse Rate 62 71 Respiratory Rate 22 20 15 Blood Pressure 112/78 130/86 Pulse Oximetry 94 L 98 01/02/18 02:42 01/02/18 04:00 01/02/18 05:48 Temperature 97.3 F L Pulse Rate 73 Respiratory Rate 18 10 L 20 Blood Pressure 107/66 Pulse Oximetry 96 01/02/18 08:00 Temperature 97.8 F Pulse Rate 62 Respiratory Rate 8 L Blood Pressure 138/81 Pulse Oximetry Intake & Output 01/01/18 01/02/18 01/02/18 18:59 06:59 18:59 Intake Total 560 / 560 Output Total 1050 / 1050 1200 / 1200 Balance -1050 / -1050 -640 / -640 Weight 78.9 kg Intake: Oral 560 / 560 Output: Urine 1050 / 1050 1200 / 1200 Other: # Voids 4 Date of Last Bowel Movement 12/31/17 01/02/18 12/31/17 # Bowel Movements 1 Narrative: GENERAL: NAD, A&Ox3 CARDIOVASCULAR: Regular rate and rhythm without murmurs, gallops, or rubs. RESPIRATORY: Breath sounds equal bilaterally. No accessory muscle use. GASTROINTESTINAL: Abdomen soft, non-tender, nondistended. MUSCULOSKELETAL: No cyanosis, or edema. Right arm is in sling. Ecchymosis right shoulder SKIN: Warm and dry. NEURO: No focal neurological deficits. Results - Labs CBC & Chem 7: 12/28/17 04:40 01/01/18 06:27 - Procedures none Assessment and Plan - Assessment (1) Metabolic acidosis Code(s): E87.2 - Acidosis Status: Acute (2) Closed fracture of proximal end of right humerus Code(s): S42.201A - Unspecified fracture of upper end of right humerus, initial encounter for closed fracture Status: Acute - Plan 62-year-old male admitted secondary to anion gap metabolic acidosis and subacute right proximal humerus fracture Anion gap metabolic acidosis Resolved Secondary to alcoholism Patient counseled to quit abusing alcohol Right shoulder pain Subacute right proximal humerus fracture Limited treatments due to alcoholism Continue pain treatment as needed Per orthopedic surgery no surgical intervention at this time. Continue sling and nonweightbearing for the next 3 weeks. Outpatient follow-up in 2 weeks Alcoholism Delirium tremens Resolving withdrawal patient complains of dizziness likely from Librium will decrease dose Keep patient in the intermediate care unit. He is very impulsive high fall risk CIWA protocol Patient counseled to quit alcohol abuse Folic acid Thiamine Frequent falls Physical therapy Occupational Therapy DVT prophylaxis SCDs and Lovenox Discharge Planning: No payor source for rehab. Discharge to community when safe, will ct PT. Will request wheelchair (2) Closed fracture of proximal end of right humerus Qualifiers: Encounter type: subsequent encounter Fracture morphology: other fracture Fracture alignment: displaced Fracture healing: with routine healing Qualified Code(s): S42.291D - Other displaced fracture of upper end of right humerus, subsequent encounter for fracture with routine healing
[2018-01-03] MEDS: oxyCODONE/Acetaminophen 10/325 Tablet PO PRN ×4 (02:07→15:58)
[2018-01-03] MEDS: Morphine Sulfate Inj 2 MG/ML Vial IV.PUSH PRN ×2 (05:07→08:42)
[2018-01-03] MEDS: Folic Acid 1 MG Tablet PO SCH (08:41)
[2018-01-03] MEDS: Enoxaparin Inj 40 MG/0.4 ML Syringe SQ SCH (08:42)
--- NOTE | 2018-01-03 10:00 | P.PN ---
Subjective Interval history: Follow-up right humerus fracture and withdrawal. Complaining of right arm pain. Denies hallucinations. Denies dizziness. Physical Exam Vital signs: Vital Signs 01/02/18 12:00 01/02/18 16:00 01/02/18 17:06 Temperature 98.2 F 98.4 F Pulse Rate 64 68 Respiratory Rate 10 L 12 12 Blood Pressure 116/81 118/73 Pulse Oximetry 01/02/18 20:00 01/03/18 00:00 01/03/18 08:00 Temperature 98.4 F 97.5 F L 96.7 F L Pulse Rate 65 69 76 Respiratory Rate 11 L 18 20 Blood Pressure 117/78 122/76 128/80 Pulse Oximetry 100 69 L Intake & Output 01/02/18 01/03/18 01/03/18 18:59 06:59 18:59 Intake Total 960 / 960 400 / 400 Output Total 1250 / 1250 1400 / 1400 Balance -290 / -290 -1000 / -1000 Weight 78.9 kg Intake: Oral 960 / 960 400 / 400 Output: Urine 1250 / 1250 1400 / 1400 Other: Date of Last Bowel Movement 01/02/18 # Bowel Movements 1 Narrative: GENERAL: NAD, A&Ox3 CARDIOVASCULAR: Regular rate and rhythm without murmurs, gallops, or rubs. RESPIRATORY: Breath sounds equal bilaterally. No accessory muscle use. MUSCULOSKELETAL: No cyanosis, or edema. Right arm is in sling. Ecchymosis right shoulder SKIN: Warm and dry. NEURO: No focal neurological deficits. Results - Labs CBC & Chem 7: 12/28/17 04:40 01/01/18 06:27 - Procedures none Assessment and Plan - Assessment (1) Metabolic acidosis Code(s): E87.2 - Acidosis Status: Acute (2) Closed fracture of proximal end of right humerus Code(s): S42.201A - Unspecified fracture of upper end of right humerus, initial encounter for closed fracture Status: Acute - Plan 62-year-old male admitted secondary to anion gap metabolic acidosis and subacute right proximal humerus fracture Anion gap metabolic acidosis Resolved Secondary to alcoholism Patient counseled to quit abusing alcohol Right shoulder pain Subacute right proximal humerus fracture Limited treatments due to alcoholism Continue pain treatment as needed consult regarding narcotics. E force queried Per orthopedic surgery no surgical intervention at this time. Continue sling and nonweightbearing for the next 3 weeks. Outpatient follow-up in 2 weeks Alcoholism Delirium tremens Resolving withdrawal will continue weaning Librium. Denies dizziness today. He is very impulsive high fall risk Status post CIWA protocol Patient counseled to quit alcohol abuse Folic acid Thiamine Frequent falls Physical therapy Occupational Therapy DVT prophylaxis SCDs and Lovenox Discharge Planning: No payor source for rehab. Discharge to community when safe, will ct PT. Will request wheelchair (2) Closed fracture of proximal end of right humerus Qualifiers: Encounter type: subsequent encounter Fracture morphology: other fracture Fracture alignment: displaced Fracture healing: with routine healing Qualified Code(s): S42.291D - Other displaced fracture of upper end of right humerus, subsequent encounter for fracture with routine healing
[2018-01-04] MEDS: oxyCODONE/Acetaminophen 10/325 Tablet PO PRN ×2 (00:17→09:00)
[2018-01-04] MEDS: Morphine Sulfate Inj 2 MG/ML Vial IV.PUSH PRN ×2 (02:18→11:09)
[2018-01-04 08:13] VITALS: BP 139/69; PULSE 84; TEMP 98.7; O2SAT 96
[2018-01-04] MEDS: Folic Acid 1 MG Tablet PO SCH (09:01)
[2018-01-04] MEDS: Enoxaparin Inj 40 MG/0.4 ML Syringe SQ SCH (09:02)
--- NOTE | 2018-01-04 09:33 | P.PN ---
Subjective Interval history: Follow-up right humeral fracture and alcohol withdrawal. States he is hurting did not get pain medications last night. Discussed with PT yesterday possible discharge today pending reevaluation. Physical Exam Vital signs: Vital Signs 01/03/18 12:00 01/03/18 16:00 01/03/18 20:00 Temperature 96.7 F L 98.1 F 97.8 F Pulse Rate 78 68 71 Respiratory Rate 20 20 20 Blood Pressure 126/73 112/73 121/74 Pulse Oximetry 97 98 99 01/04/18 00:00 01/04/18 08:00 Temperature 97.1 F L 98.7 F Pulse Rate 77 84 Respiratory Rate 20 17 Blood Pressure 130/72 139/69 Pulse Oximetry 95 96 Intake & Output 01/03/18 01/04/18 01/04/18 18:59 06:59 18:59 Intake Total 442 / 442 1080 / 1080 Output Total 100 / 100 1800 / 1800 Balance 342 / 342 -720 / -720 Weight 76.8 kg Intake: Oral 442 / 442 1080 / 1080 Output: Urine 100 / 100 1800 / 1800 Other: # Voids 2 4 Narrative: GENERAL: NAD, A&Ox3 CARDIOVASCULAR: Regular rate and rhythm without murmurs, gallops, or rubs. RESPIRATORY: Breath sounds equal bilaterally. No accessory muscle use. MUSCULOSKELETAL: No cyanosis, or edema. Right arm is in sling. Ecchymosis right shoulder NEURO: No focal neurological deficits. Results - Labs CBC & Chem 7: 12/28/17 04:40 01/01/18 06:27 - Imaging ITS Impressions Shoulder X-Ray 12/24/17 16:56 CONCLUSION: 1. Comminuted mildly displaced proximal right humeral neck fracture. 2. Questionable abnormality of the acromioclavicular joint with joint space widening and apparent depression of the distal right clavicle. - Procedures none Assessment and Plan - Assessment (1) Metabolic acidosis Code(s): E87.2 - Acidosis Status: Acute (2) Closed fracture of proximal end of right humerus Code(s): S42.201A - Unspecified fracture of upper end of right humerus, initial encounter for closed fracture Status: Acute - Plan 62-year-old male admitted secondary to anion gap metabolic acidosis and subacute right proximal humerus fracture Anion gap metabolic acidosis Resolved Secondary to alcoholism Patient counseled to quit abusing alcohol Right shoulder pain Subacute right proximal humerus fracture Limited treatments due to alcoholism Continue pain treatment as needed consult regarding narcotics. E force queried Per orthopedic surgery no surgical intervention at this time. Continue sling and nonweightbearing for the next 3 weeks. Outpatient follow-up in 2 weeks Alcoholism Delirium tremens Resolving withdrawal will continue weaning Librium. Resolved dizziness from Librium He is very impulsive high fall risk, physical therapy following Status post CIWA protocol Patient counseled to quit alcohol abuse Folic acid Thiamine Frequent falls Physical therapy recommended quad cane Occupational Therapy DVT prophylaxis SCDs and Lovenox Discharge Planning: No payor source for rehab. Discharge to community when safe and cleared by pT. Will request quad cane and wheelchair (2) Closed fracture of proximal end of right humerus Qualifiers: Encounter type: subsequent encounter Fracture morphology: other fracture Fracture alignment: displaced Fracture healing: with routine healing Qualified Code(s): S42.291D - Other displaced fracture of upper end of right humerus, subsequent encounter for fracture with routine healing
--- NOTE | 2018-01-04 09:33 | P.DS ---
Date of admission: 12/26/17 11:26 Primary care physician: No Primary Care Physician Brief History from admission: Mr. Duckworth is a 62 year old with alcoholism. He recently sustained a fracture of his humerus, which is non-surgical. Sling has been provided at a [facility]. Patient was discharged from there, he subsequently fell again. He came into this hospital due to pain and is found to be in an anion gap metabolic acidosis. IV Hydration is provided overnight and he has resolution of his anion gap. He does continue to have pain. He also cannot get out of bed due to the pain. PT evaluation is pending, due to his multiple falls recently he may have a fall risk present other than alcohol. DS: Diagnosis - Discharge Diagnosis (1) Metabolic acidosis Status: Acute (2) Closed fracture of proximal end of right humerus Status: Acute DS: Medications - Discharge Medications Prescriptions: oxycodone-acetaminophen 1 tab PO Q4H PRN #18 tab PRN Reason: Acute Pain thiamine HCl (vitamin B1) 100 mg PO DAILY #30 tab DS: Summary Hospital Course: 62-year-old male admitted secondary to anion gap metabolic acidosis and subacute right proximal humerus fracture Anion gap metabolic acidosis Resolved Secondary to alcoholism Patient counseled to quit abusing alcohol Right shoulder pain Subacute right proximal humerus fracture Limited treatments due to alcoholism Continue pain treatment as needed consult regarding narcotics. E force queried Per orthopedic surgery no surgical intervention at this time. Continue sling and nonweightbearing for the next 3 weeks. Outpatient follow-up in 2 weeks Alcoholism Delirium tremens Resolving withdrawal will continue weaning Librium. Resolved dizziness from Librium He is very impulsive high fall risk, physical therapy following Status post CIWA protocol Patient counseled to quit alcohol abuse Folic acid Thiamine Frequent falls Physical therapy recommended quad cane Occupational Therapy DVT prophylaxis SCDs and Lovenox Discharge Planning: No payor source for rehab. Discharge to community when safe and cleared by pT. Will request quad cane and wheelchair - Time Spent with Patient Total time spent providing and/or coordinating discharge services: Greater than 30 minutes Exam Vital signs: Vital Signs 01/03/18 12:00 01/03/18 16:00 01/03/18 20:00 Temperature 96.7 F L 98.1 F 97.8 F Pulse Rate 78 68 71 Respiratory Rate 20 20 20 Blood Pressure 126/73 112/73 121/74 Pulse Oximetry 97 98 99 01/04/18 00:00 01/04/18 08:00 Temperature 97.1 F L 98.7 F Pulse Rate 77 84 Respiratory Rate 20 17 Blood Pressure 130/72 139/69 Pulse Oximetry 95 96 Intake & Output 01/03/18 01/04/18 01/04/18 18:59 06:59 18:59 Intake Total 442 / 442 1080 / 1080 Output Total 100 / 100 1800 / 1800 Balance 342 / 342 -720 / -720 Weight 76.8 kg Intake: Oral 442 / 442 1080 / 1080 Output: Urine 100 / 100 1800 / 1800 Other: # Voids 2 4 Narrative: GENERAL: NAD, A&Ox3 CARDIOVASCULAR: Regular rate and rhythm without murmurs, gallops, or rubs. RESPIRATORY: Breath sounds equal bilaterally. No accessory muscle use. MUSCULOSKELETAL: No cyanosis, or edema. Right arm is in sling. Ecchymosis right shoulder NEURO: No focal neurological deficits. Results Procedures completed during hospitalization: none - Impressions ITS Impressions Shoulder X-Ray 12/24/17 16:56 CONCLUSION: 1. Comminuted mildly displaced proximal right humeral neck fracture. 2. Questionable abnormality of the acromioclavicular joint with joint space widening and apparent depression of the distal right clavicle. Discharge Plan - Discharge Disposition Patient Disposition: W/Home Health Service - Discharge Condition Condition: Stable - Discharge Order Discharge Orders: Discharge Order (Routine); Ordered 01/04/18 Ordered By: Surinder Briggs - Discharge Details Discharge Comment: dc when cleared by PT - Physicians Team Primary Care Provider: Primary Care Physici,No Attending Provider: Surinder Briggs
[2018-01-04 10:29] VITALS: RESP 18
== END 2018-01-04 11:51 | disposition home health service (06) ==
LOC: PHEDA 16:34 → PHED 16:34 → PH3 20:18 → PHICU 12-26 08:33 → PH3 01-02 20:32
PROVIDERS: ADMIT Internal Medicine; ATTEND Internal Medicine

== ENCOUNTER 2018-03-07 11:51 | Inpatient (IN) ==
--- NOTE | 2018-03-07 13:27 | ED ---
HPI General Chief complaint: Skin/Abscess/Foreign Body Stated complaint: Left Hand Complaint Time Seen by Provider: 03/07/18 12:13 Source: patient Mode of arrival: ambulatory Limitations: no limitations History of Present Illness HPI narrative: Patient is a 62-year-old male presenting to emerge department for evaluation of left first finger infection. Patient was seen and evaluated emergency department yesterday, started on clindamycin. Today he went for routine physical and was advised by that provider to return to the emergency department based on the worsening symptoms. Patient reports 10 out of 10 pain when he attempts to move or touch his finger. He states that the swelling has gotten worse and there is a bullous lesion proximal to the nailbed on the left first finger. Patient denies any fevers, chills, shortness of breath, chest pain. He is currently in rehab, 8 weeks clean from alcohol. He reports a past medical history significant for a heart attack which he reports was mild several years ago. Symptoms started over a week ago. He states his been compliant with clindamycin. Onset (ago): day(s) Location: upper extremity Radiation: non-radiation Severity: moderate Severity scale (1-10): 10 Quality: aching and constant Pain Consistency: constant Relieving factors: immobilization Exacerbating factors: movement and other (Palpation) Associated symptoms: Reports denies other symptoms Treatments prior to arrival: Reports other (Clindamycin) Related Data Previous Rx's Medication Instructions Recorded clindamycin HCl 450 mg PO Q8H 7 Days #63 cap 03/06/18 Allergies Allergy/AdvReac Type Severity Reaction Status Date / Time fexofenadine Allergy Intermediate Hives Verified 03/07/18 12:14 naproxen [From Aleve] Allergy Intermediate Hives Verified 03/07/18 12:14 Review of Systems ROS: all other systems reviewed are negative PMFSH History History 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 Medical History Medical History AMI (acute myocardial infarction) (Acute) Alcoholism /alcohol abuse (Acute) Alcoholism /alcohol abuse (Acute) Shoulder fracture, right (Acute) Surgical History Surgical History No history of previous surgery (Acute) Family History Family History Other Osteoarthritis Social History Social History Substance History: No History of Abuse Second Hand Smoke Exposure: Yes Smoking Status: Current some day smoker Tobacco Type: Cigarettes How Often Do You Have a Drink Containing Alcohol: Never Recent Travel in [facility] within the Last 8 Weeks: No Recent Out of Country Travel within the Last 8 Weeks: No Exam Narrative Exam Narrative: GENERAL: Well-developed, well-nourished, alert male. Presenting in no acute distress. SKIN: Focused skin assessment warm/dry. Edema and erythema noted to the left first digit, bullous lesion proximal to the nailbed on the left first digit. Significantly tender to palpation, warm to the touch. HEAD: Atraumatic. Normocephalic. EYES: Pupils equal and round. No scleral icterus. No injection or drainage. ENT: No nasal bleeding or discharge. Mucous membranes pink and moist. NECK: Trachea midline. No JVD. CARDIOVASCULAR: Regular rate and rhythm. No murmur appreciated. RESPIRATORY: No accessory muscle use. Clear to auscultation. Breath sounds equal bilaterally. GASTROINTESTINAL: Abdomen soft, non-tender, nondistended. Hepatic and splenic margins not palpable. MUSCULOSKELETAL: No obvious deformities. No clubbing. No cyanosis. No edema. NEUROLOGICAL: Awake and alert. No obvious cranial nerve deficits. Motor grossly within normal limits. Normal speech. PSYCHIATRIC: Appropriate mood and affect; insight and judgment normal. Procedures Abscess I/D Abscess 1: Site: upper extremity Side (if applicable): left Sedation/analgesia: none Technique: needle aspiration Amount of fluid expressed (mL): 10 Irrigation: No Packing used?: none Course Initial Documented Vital Signs Temperature 98.5 F 03/07/18 12:01 Pulse Rate 90 03/07/18 12:01 Respiratory Rate 18 03/07/18 12:01 Blood Pressure 130/84 03/07/18 12:01 Pulse Oximetry 99 03/07/18 12:01 Last Documented Vital Signs Temperature 98.5 F 03/07/18 12:01 Pulse Rate 80 03/07/18 13:24 Respiratory Rate 15 03/07/18 13:24 Blood Pressure 112/76 03/07/18 13:24 Pulse Oximetry 99 03/07/18 13:24 Medical Decision Making MDM Narrative Medical decision making narrative: IDr. Rivera, have reviewed the advance practice practitioner's documentation and am in agreement, met with the patient face to face, made the diagnosis, and the medical decision making was done by me. *My assessment and Findings: Patient seen and examined by me in addition to Cristiana Huerta, known to me from yesterday, he does have what appears to be a purulent focus of abscess pop-up on the dorsal aspect of his thumb, I&D, will check an MRI to exclude osteomyelitis as a cause but this may just have been a paronychia that is inflamed out of control. May still be prudent for outpatient management. Patient presented for evaluation of worsening edema and erythema to his left first finger. Labs and MRI ordered. Labs reviewed, CRP and sed rate markedly elevated when compared to yesterday's lab values. MRI resulted, with probable osteomyelitis in the left first finger. Vancomycin and Zosyn ordered empirically, cultures pending. Dr. Louie accepted admit, orders placed. Pt and friends advised on clinical findings and plan of care. Medical Screen Exam Complete: Yes Emergency Medical Condition: Yes Differential Diagnosis Differential Diagnosis: Cellulitis versus abscess versus osteomyelitis versus other Medical Records Medical records reviewed: Yes I reviewed the patient's medical records. Lab Data Lab results reviewed: Yes I reviewed the patient's lab results. Result diagrams: 03/07/18 13:10 03/07/18 13:10 Lab Results 03/07/18 03/07/18 03/07/18 Range/Units 13:10 13:10 13:10 WBC 8.4 (4.0-11.0) th/mm3 RBC 3.60 L (4.50-5.90) mil/mm3 Hgb 13.3 (13.0-17.0) gm/dL Hct 38.2 L (39.0-51.0) % MCV 106.1 H (80.0-100.0) fL MCH 36.8 H (27.0-34.0) pg MCHC 34.7 (32.0-36.0) % RDW 14.2 (11.6-17.2) % Plt Count 284 (150-450) th/mm3 MPV 6.8 L (7.0-11.0) fL Neut % (Auto) 62.2 (16.0-70.0) % Lymph % (Auto) 24.4 (9.0-44.0) % Sheridan % (Auto) 12.4 H (0.0-8.0) % Eos % (Auto) 0.7 (0.0-4.0) % Baso % (Auto) 0.3 (0.0-2.0) % Neut # (Auto) 5.2 (1.8-7.7) th/mm3 Lymph # (Auto) 2.0 (1.0-4.8) th/mm3 Sheridan # (Auto) 1.0 H (0.0-0.9) th/mm3 Eos # (Auto) 0.1 (0.0-0.4) th/mm3 Baso # (Auto) 0.0 (0.0-0.2) th/mm3 WBC Differential . Differential Comment Auto diff final ESR 65 H (0-20) mm/hr Sodium 140 (136-145) meq/L Potassium 4.2 (3.5-5.1) meq/L Chloride 105 (98-107) meq/L Carbon Dioxide 29.1 (21.0-32.0) meq/L Anion Gap 6 (5-15) meq/L BUN 10 (7-18) mg/dL Creatinine 0.83 (0.60-1.30) mg/dL Estimated GFR Greater than 89 (>89) mL/min Random Glucose 97 (74-106) mg/dL Calcium 8.7 (8.5-10.1) mg/dL Total Bilirubin 0.7 (0.2-1.0) mg/dL AST 10 L (15-37) U/L ALT 18 (12-78) U/L Alkaline Phosphatase 84 (45-117) U/L C-Reactive Protein 3.60 H (0.00-0.30) mg/dL Total Protein 8.1 (6.4-8.2) g/dL Albumin 3.6 (3.4-5.0) g/dL Imaging Data Radiologist's impression: Hand MRI 03/07/18 12:28 CONCLUSION: 1. Probable osteomyelitis distal phalanx of the thumb with extensive soft tissue enhancement or marrow enhancement. There is no bony destruction evident on plain films from the same date. The same date. Discharge Plan Discharge Disposition Patient Disposition: ED Admit(ED Internal Use Only) Discharge Condition Condition: Stable Discharge Details Diagnosis: Osteomyelitis Physicians Team ED Provider: Timothy Rivera ED Midlevel Provider: Jayleen Green Primary Care Provider: UNKNOWN, Rxs /Orders / Referrals /Forms Prescriptions: No Action clindamycin HCl 150 mg capsule 450 mg PO Q8H 7 Days Qty: 63 RF: 0 Discharge Interventions Interventions: Vital Signs Last Done: 03/07/18 13:24 Status ED Status: Pending Admission
[2018-03-07 13:54] LABS: Alanine Aminotransferase 18 U/L (12-78); Albumin 3.6 g/dL (3.4-5.0); Anion Gap 6 meq/L (5-15); Aspartate Aminotransferase 10 U/L (15-37); Blood Urea Nitrogen 10 mg/dL (7-18); Calcium 8.7 mg/dL (8.5-10.1); Carbon Dioxide 29.1 meq/L (21.0-32.0); Chloride 105 meq/L (98-107); Glomerular Filtration Rate Greater Than 89 mL/min (>89); Glucose,Random 97 mg/dL (74-106); Potassium 4.2 meq/L (3.5-5.1); Sodium 140 meq/L (136-145)
[2018-03-07 13:57] LABS: Baso % (Auto) 0.3 % (0.0-2.0); Eos # (Auto) 0.1 th/mm3 (0.0-0.4); Eos % (Auto) 0.7 % (0.0-4.0); Hematocrit 38.2 % (39.0-51.0); Hemoglobin 13.3 gm/dL (13.0-17.0); Lymph % (Auto) 24.4 % (9.0-44.0); Mean Corpuscular HGB Conc 34.7 % (32.0-36.0); Mean Corpuscular Hemoglobin 36.8 pg (27.0-34.0); Mean Corpuscular Volume 106.1 fL (80.0-100.0); Mean Platelet Volume 6.8 fL (7.0-11.0); Mono % (Auto) 12.4 % (0.0-8.0); Neut # (Auto) 5.2 th/mm3 (1.8-7.7); Neut % (Auto) 62.2 % (16.0-70.0); Platelet Count 284 th/mm3 (150-450); Red Cell Distribution Width 14.2 % (11.6-17.2); White Blood Count 8.4 th/mm3 (4.0-11.0)
[2018-03-07 13:58] LABS: Alkaline Phosphatase 84 U/L (45-117); Total Protein 8.1 g/dL (6.4-8.2)
[2018-03-07] MEDS ORDERED: Gadobutrol PF 2 MMOL/2 ML Vial (for RAD) IV.SIG ONE (14:11)
--- NOTE | 2018-03-07 14:42 | MR ---
EXAM DATE: 03/07/2018 2:18 PM EST AGE/SEX: 62 years / Male INDICATIONS: Osteomyelitis. Left thumb infection. CLINICAL DATA: This is the patient's initial encounter. Patient reports that signs and symptoms have been present for 3 days and indicates a pain score of 3/10. MEDICAL/SURGICAL HISTORY: . None. COMPARISON: [facility], FINGER LEFT 1ST DIGIT MIN 2V, 03/06/2018. . TECHNIQUE: Multiplanar, multisequence MRI examination was performed without contrast and after the i ntravenous administration of 8 ml Gadavist (gadobutrol) contrast as a single exam dose. FINDINGS: There is marked soft tissue swelling involving the thumb that extends from the inferior eminence, bas e of thumb, first metacarpophalangeal joint to the distal tip. . The amount of soft tissue swelling increases as one moves to the tip. There is no definite marrow edema present however on the postcontrast images there is intense enhance ment of subcutaneous tissues as well as the distal tuft from the interphalangeal joint distally. This amount of enhancement is unusual and is concerning for an inflammatory process. No other concerning areas of enhancement are evident. The soft tissue edema does involve the flexor tendon complex without defined abscess. CONCLUSION: 1. Probable osteomyelitis distal phalanx of the thumb with extensive soft tissue enhancement or kendal ow enhancement. There is no bony destruction evident on plain films from the same date. The same date . Electronically signed by: Vignesh Hawkins MD 03/07/2018 2:41 PM EST
[2018-03-07] MEDS ORDERED: Vancomycin Inj 1,000 MG in Sodium Chlor 0.9% Inj 250 ML IV.SIG ONE (14:54)
[2018-03-07] MEDS ORDERED: Piperacil/Tazo 4.5 GM Premix 4.5 GM/100 ML BAG IV.SIG ONE (14:54)
[2018-03-07] MEDS ORDERED: Acetaminophen 325 MG Tablet PO PRN ×3 (15:33→16:23)
[2018-03-07] MEDS ORDERED: Bisacodyl 10 MG Supp RECTAL PRN (15:33)
[2018-03-07] MEDS ORDERED: Vancomycin Consult Pharmacy OTHER PRN (15:35)
[2018-03-07] MEDS ORDERED: Naloxone Inj 0.4 MG/ML Vial IV.PUSH PRN (15:35)
--- NOTE | 2018-03-07 16:16 | P.HPIM ---
History of Present Illness Primary Care Physician: Carmen Guerrero Chief Complaint: Left thumb swelling and pain History of Present Illness: 63-year-old white male who is a current resident at alcohol rehab and has been alcohol free for the past 2 months presents to the emergency room secondary to increase development of swelling and bolus lesions despite taking antibiotics was prescribed in the emergency room yesterday. He denies any associated chills or fevers with the symptoms. He first noted a small lesion posterior to his nail bed 6 days ago and progressed to redness and swelling during the past few days to the point that he has hard time flexing his thumb.. He denies any trauma or injuries to the area. He denies previous infection to the area. Patient is declining any type of narcotics due to being in residential drug rehab. He has taken ibuprofen without any reaction although he had previous reaction to Aleve [id number]. He is currently taking ibuprofen for pain. Review of Systems Constitutional: Reports as per HPI, Denies chills, Denies fatigue, Denies fever( s) and Denies headache(s) Eyes: Denies blurry vision, Denies change in vision and Denies eye pain Ears, Nose, Mouth, and Throat: Denies abnormal hearing, Denies headache(s), Denies mouth pain, Denies nasal congestion, Denies neck pain and Denies sore throat Cardiovascular: Denies chest pain, Denies pedal edema, Denies palpitations and Denies dyspnea Respiratory: Denies cough and Denies dyspnea Gastrointestinal: Denies abdominal pain, Denies constipation, Denies loose stools, Denies nausea and Denies vomiting Musculoskeletal: Reports system reviewed and no additional complaints, except as docu, Denies back pain, Denies myalgias, Reports arthralgias (Chronic right shoulder pain due to previous fracture), Reports joint swelling (As described in the HPI), Reports limited range of motion (Left thumb), Denies neck pain and Denies numbness Skin/Breast: Denies new lesions and Denies rash Neurologic: Denies abnormal hearing, Denies headache(s), Denies focal weakness, Denies memory loss and Denies numbness Psychiatric: Denies anxiety, Denies depression and Denies memory loss Endocrine: Denies cold intolerance, Denies heat intolerance and Denies palpitations Hematologic/Lymphatic: Denies easy bleeding and Denies easy bruising PMFSH Social History Social History Substance History: No History of Abuse Second Hand Smoke Exposure: Yes Smoking Status: Current some day smoker Tobacco Type: Cigarettes How Often Do You Have a Drink Containing Alcohol: Never Recent Travel in [facility] within the Last 8 Weeks: No Recent Out of Country Travel within the Last 8 Weeks: No Immunization History Tetanus Immunization: <5 Years Medications and Allergies Allergies Allergy/AdvReac Type Severity Reaction Status Date / Time fexofenadine Allergy Intermediate Hives Verified 03/07/18 12:14 naproxen [From Aleve] Allergy Intermediate Hives Verified 03/07/18 16:24 Active Medications: Active Medications Acetaminophen (Tylenol) 650 mg PO Q4H PRN PRN Reason: Temp > 100.4 Acetaminophen (Tylenol) 650 mg PO Q6HR PRN PRN Reason: PAIN SCALE 1 TO 2 Hydrocodone Bitart/Acetaminophen ([place]pton 7.5/325) 1 tab PO Q4H PRN PRN Reason: PAIN SCALE 6 TO 10 Al Hydroxide/Mg Hydroxide (Milk Of Magnesia Liq) 30 ml PO Q12H PRN PRN Reason: Mild Constipation Bisacodyl (Dulcolax Supp) 10 mg RECTAL DAILY PRN PRN Reason: SEVERE CONSITIPATION Clindamycin Phosphate 600 mg/ (Sodium Chloride) 104 mls @ 200 mls/hr IV.SIG NOW ALIYAH Piperacillin/Tazobactam/Dextrose (Zosyn 3.375 Gm Premix) 50 mls @ 100 mls/hr IV.SIG Q6H ALIYAH Vancomycin HCl 1,500 mg/ (Sodium Chloride) 515 mls @ 250 mls/hr IV.SIG Q12H ALIYAH Lactulose (Lactulose Liq) 30 ml PO DAILY PRN PRN Reason: SEVERE CONSITIPATION Miscellaneous Information ([facility] Ordered Lab Info) 0 each OTHER ONCE ONE Stop: 03/09/18 13:46 Naloxone HCl (Narcan Inj) 0.4 mg IV.PUSH UNSCH PRN PRN Reason: SEE LABEL COMMENTS Ondansetron HCl (Zofran Inj) 4 mg IV.PUSH Q6H PRN PRN Reason: NAUSEA OR VOMITING Pharmacy Profile Note (Vancomycin Consult Pharmacy) 1 each OTHER UNSCH PRN PRN Reason: Pharmacy to dose Senna/Docusate Sodium (Nano-Colace) 1 tab PO BID ALIYAH Sennosides (Senokot) 17.2 mg PO Q12H PRN PRN Reason: Moderate Constipation Sodium Chloride (Ns Flush) 2 ml IV.FLUSH BID ALIYAH Sodium Chloride (Ns Flush) 2 ml IV.FLUSH PRN PRN PRN Reason: FLUSH AFTER USING IV ACCESS Tramadol HCl (Ultram) 50 mg PO Q4H PRN PRN Reason: PAIN SCALE 3 TO 5 Physical Exam Vital signs: Last Vital Signs Temp 98.5 F 03/07/18 12:01 Pulse 80 03/07/18 13:24 Resp 15 03/07/18 13:24 BP 112/76 03/07/18 13:24 Pulse Ox 99 03/07/18 13:24 Intake & Output 03/05/18 03/06/18 03/07/18 03/08/18 06:59 06:59 06:59 06:59 Weight 78.925 kg Narrative: GENERAL: Well-nourished well-developed white male no acute distress SKIN: Warm and dry. Bullous lesions over the left dorsum of the thumb proximal to the nailbed with surroundings swelling, serosanguineous drainage, HEAD: Atraumatic. Normocephalic. EYES: Pupils equal and round. No scleral icterus. No injection or drainage. ENT: No nasal bleeding or discharge. Mucous membranes pink and moist. NECK: Trachea midline. No JVD. CARDIOVASCULAR: Regular rate and rhythm. RESPIRATORY: No accessory muscle use. Clear to auscultation. Breath sounds equal bilaterally. GASTROINTESTINAL: Abdomen soft, non-tender, nondistended. Hepatic and splenic margins not palpable. MUSCULOSKELETAL: Extremities without clubbing, cyanosis, or edema. Limited restricted range of motion of the distal and proximal left thumb phalanx secondary to swelling and pain Limited range of motion over the right shoulder secondary to previous fracture currently using a sling and swath NEUROLOGICAL: Awake and alert to person place. No obvious cranial nerve deficits. Motor grossly within normal limits. Five out of 5 muscle strength legs. Normal speech. PSYCHIATRIC: Appropriate mood and affect; insight and judgment normal. Results Labs CBC & Chem 7: 03/08/18 06:06 03/08/18 06:06 Imaging Impressions Hand MRI 03/07/18 12:28 CONCLUSION: 1. Probable osteomyelitis distal phalanx of the thumb with extensive soft tissue enhancement or marrow enhancement. There is no bony destruction evident on plain films from the same date. The same date. Caprini VTE Risk Assessment Caprini VTE Risk Assessment: No/Low Risk (score <= 1) Caprini Risk Assessment Model: Point Value = 1 Point Value = 2 Point Value = 3 Point Value = 5 Age 41-60 Minor surgery BMI > 25 kg/m2 Swollen legs Varicose veins or History of unexplained or recurrent spontaneous Oral contraceptives or hormone replacement Sepsis (< 1 month) Serious lung disease, including pneumonia (< 1 month) Abnormal pulmonary function Acute myocardial infarction Congestive heart failure (< 1 month) History of inflammatory bowel disease Medical patient at bed rest Age 61-74 Arthroscopic surgery Major open surgery (> 45 min) Laparoscopic surgery (> 45 min) Malignancy Confined to bed (> 72 hours) Immobilizing plaster cast Central venous access Age >= 75 History of VTE Family history of VTE Factor V Leiden Prothrombin [id number] Lupus anticoagulant Anticardiolipin antibodies Elevated serum homocysteine Heparin-induced thrombocytopenia Other congenital or acquired thrombophilia Stroke (< 1 month) Elective arthroplasty Hip, pelvis, or leg fracture Acute spinal cord injury (< 1 month) Prophylaxis Regimen: Total Risk Factor Score Risk Level Prophylaxis Regimen 0-1 Low Early ambulation 2 Moderate Order ONE of the following: *Sequential Compression Device (SCD) *Heparin 5000 units SQ BID 3-4 Higher Order ONE of the following medications: *Heparin 5000 units SQ TID *Enoxaparin/Lovenox 40 mg SQ daily (WT < 150 kg, CrCl > 30 mL/min) *Enoxaparin/Lovenox 30 mg SQ daily (WT < 150 kg, CrCl > 10-29 mL/min) *Enoxaparin/Lovenox 30 mg SQ BID (WT < 150 kg, CrCl > 30 mL/min) AND/OR *Sequential Compression Device (SCD) 5 or more Highest Order ONE of the following medications: *Heparin 5000 units SQ TID (Preferred with Epidurals) *Enoxaparin/Lovenox 40 mg SQ daily (WT < 150 kg, CrCl > 30 mL/min) *Enoxaparin/Lovenox 30 mg SQ daily (WT < 150 kg, CrCl > 10-29 mL/min) *Enoxaparin/Lovenox 30 mg SQ BID (WT < 150 kg, CrCl > 30 mL/min) AND *Sequential Compression Device (SCD) Assessment and Plan Plan 62-year-old white male currently in residential treatment for alcohol abuse presents with Left distal phalanx of the thumb osteomyelitis with suspected underlying abscess with failed outpatient treatmentwill consult hand surgery and infectious disease for further recommendations. Keep n.p.o. for surgical evaluation. Start IV vancomycin and Zosyn. Follow-up with blood cultures and wound cultures. DVT prophylaxisno mechanical or pharmaceutical VTE prophalaxis administered due to patient's low risk assessment of VTE. Encouraged ambulation.
[2018-03-07] MEDS: Piperacil/Tazo 3.375 GM Premix 50 ML IV.SIG SCH (22:12)
[2018-03-07] MEDS: Senna/Docusate Sodium 8.6/50 MG Tablet PO SCH (22:14)
[2018-03-07] MEDS: Ibuprofen 400 MG Tablet PO PRN (22:14)
[2018-03-08] MEDS: Vancomycin Inj 1,500 MG in Sodium Chlor 0.9% Inj 500 ML IV.SIG SCH ×2 (01:56→13:04)
[2018-03-08] MEDS ORDERED: Vancomycin Inj 1,000 MG in Sodium Chlor 0.9% Inj 250 ML IV.SIG SCH (03:36)
[2018-03-08] MEDS: Piperacil/Tazo 3.375 GM Premix 50 ML IV.SIG SCH ×4 (04:05→21:58)
[2018-03-08 06:26] LABS: Baso % (Auto) 0.6 % (0.0-2.0); Eos # (Auto) 0.1 th/mm3 (0.0-0.4); Eos % (Auto) 2.7 % (0.0-4.0); Hematocrit 39.3 % (39.0-51.0); Hemoglobin 13.7 gm/dL (13.0-17.0); Lymph # (Auto) 1.7 th/mm3 (1.0-4.8); Lymph % (Auto) 34.3 % (9.0-44.0); Mean Corpuscular HGB Conc 34.8 % (32.0-36.0); Mean Corpuscular Hemoglobin 36.8 pg (27.0-34.0); Mean Corpuscular Volume 105.6 fL (80.0-100.0); Mean Platelet Volume 6.7 fL (7.0-11.0); Mono # (Auto) 0.8 th/mm3 (0.0-0.9); Mono % (Auto) 15.3 % (0.0-8.0); Neut # (Auto) 2.4 th/mm3 (1.8-7.7); Neut % (Auto) 47.1 % (16.0-70.0); Platelet Count 251 th/mm3 (150-450); Red Blood Count 3.72 mil/mm3 (4.50-5.90); Red Cell Distribution Width 14.6 % (11.6-17.2); White Blood Count 5.1 th/mm3 (4.0-11.0)
[2018-03-08 06:49] LABS: Anion Gap 8 meq/L (5-15); Blood Urea Nitrogen 11 mg/dL (7-18); Calcium 8.2 mg/dL (8.5-10.1); Carbon Dioxide 25.9 meq/L (21.0-32.0); Chloride 108 meq/L (98-107); Glomerular Filtration Rate Greater Than 89 mL/min (>89); Glucose,Random 97 mg/dL (74-106); Potassium 4.1 meq/L (3.5-5.1); Sodium 142 meq/L (136-145)
[2018-03-08] MEDS: Senna/Docusate Sodium 8.6/50 MG Tablet PO SCH ×2 (08:09→20:09)
[2018-03-08] MEDS: Ibuprofen 400 MG Tablet PO PRN ×2 (09:24→15:47)
--- NOTE | 2018-03-08 09:45 | P.PNIM ---
Subjective Interval history: Follow-up for Left thumb osteomyelitis, swelling and pain. Patient seen and examined laying in bed, denies any fever or chills, complains of left thumb swelling however it is improved from admission, patient stated it is a not better that he wants. Patient stated it drained a lot of pus yesterday. Patient denies any pain on the left thumb the area at the moment. Patient complains of pain on the right shoulder, stated he fell at home recently, orthopedic does not want to do surgery due to the left thumb infection. Patient denies any headache or dizziness, denies any chest pain or shortness of breath, denies any abdominal pain, nausea, vomiting, diarrhea or constipation. Patient states that he did have a bowel movement yet however stated he did not eat anything due to possible surgery. Physical Exam Vital signs: Vital Signs 03/07/18 12:01 03/07/18 13:24 03/07/18 17:30 Temperature 98.5 F Pulse Rate 90 80 95 H Respiratory Rate 18 15 18 Blood Pressure 130/84 112/76 110/70 Pulse Oximetry 99 99 96 03/07/18 20:00 03/07/18 23:57 03/08/18 00:00 Temperature 97.9 F 97.2 F L Pulse Rate 77 65 Respiratory Rate 18 18 18 Blood Pressure 114/66 107/60 Pulse Oximetry 96 97 03/08/18 00:26 03/08/18 02:13 03/08/18 04:10 Temperature 97.3 F L Pulse Rate 66 Respiratory Rate 16 16 18 Blood Pressure 110/79 Pulse Oximetry 98 03/08/18 07:00 03/08/18 08:05 Temperature 97.9 F Pulse Rate 66 Respiratory Rate 12 20 Blood Pressure 115/70 Pulse Oximetry 95 Intake & Output 03/07/18 03/08/18 03/08/18 18:59 06:59 18:59 Intake Total 350 / 350 615 / 615 Balance 350 / 350 615 / 615 Weight 78.925 kg 80.8 kg Intake: IV 350 / 350 615 / 615 Zosyn 3.375 GM Premix 50 ML @ 100 / 100 100 mls/hr IV.SIG Q6H [facility] Rx#: [id number] Zosyn 4.5 GM Premix 4.5 gm In 100 / 100 100 ml @ 200 mls/hr IV.SIG ONCE ONE Rx#:[id number] Vancomycin Inj 1,000 MG In NS 250 / 250 Inj 250 ML @ 250 mls/hr IV.SIG ONCE ONE Rx#:[id number] Vancomycin Inj 1,500 MG In NS 515 / 515 Inj 500 ML @ 250 mls/hr IV.SIG Q12H [facility] Rx#:[id number] Other: # Voids 1 Date of Last Bowel Movement 03/04/18 03/05/18 Weight On Admission 78.925 kg Narrative: GENERAL: Well-developed, well-nourished, male in no acute distress SKIN: Warm and dry. Left thumb edema with bolus lesion over the left dorsum with serosanguineous drainage HEAD: Atraumatic. Normocephalic. EYES: Pupils equal and round. No scleral icterus. No injection or drainage. ENT: No nasal bleeding or discharge. Mucous membranes pink and moist. NECK: Trachea midline. No JVD. CARDIOVASCULAR: Regular rate and rhythm. RESPIRATORY: No accessory muscle use. Clear to auscultation. Breath sounds equal bilaterally. GASTROINTESTINAL: Abdomen soft, non-tender, nondistended. Hepatic and splenic margins not palpable. MUSCULOSKELETAL: Extremities without clubbing, cyanosis,. Left thumb phalanx edema, with limited range of motion. Right upper extremity/shoulder with very limited range of motion secondary to previous fracture NEUROLOGICAL: Awake and alert and oriented x3. No obvious cranial nerve deficits. Motor grossly within normal limits. Five out of 5 muscle strength in the arms and legs. Normal speech. PSYCHIATRIC: Appropriate mood and affect; insight and judgment normal. Results - Labs CBC & Chem 7: 03/08/18 06:06 03/08/18 06:06 Laboratory Results - last 24 hr 03/07/18 03/07/18 03/07/18 13:10 13:10 13:10 WBC 8.4 RBC 3.60 L Hgb 13.3 Hct 38.2 L MCV 106.1 H MCH 36.8 H MCHC 34.7 RDW 14.2 Plt Count 284 MPV 6.8 L Neut % (Auto) 62.2 Lymph % (Auto) 24.4 [place] % (Auto) 12.4 H Eos % (Auto) 0.7 Baso % (Auto) 0.3 Neut # (Auto) 5.2 Lymph # (Auto) 2.0 [place] # (Auto) 1.0 H Eos # (Auto) 0.1 Baso # (Auto) 0.0 WBC Differential . Differential Comment Auto diff final ESR 65 H Sodium 140 Potassium 4.2 Chloride 105 Carbon Dioxide 29.1 Anion Gap 6 BUN 10 Creatinine 0.83 Estimated GFR Greater than 89 Random Glucose 97 Calcium 8.7 Total Bilirubin 0.7 AST 10 L ALT 18 Alkaline Phosphatase 84 C-Reactive Protein 3.60 H Total Protein 8.1 Albumin 3.6 03/08/18 03/08/18 06:06 06:06 WBC 5.1 RBC 3.72 L Hgb 13.7 Hct 39.3 MCV 105.6 H MCH 36.8 H MCHC 34.8 RDW 14.6 Plt Count 251 MPV 6.7 L Neut % (Auto) 47.1 Lymph % (Auto) 34.3 [place] % (Auto) 15.3 H Eos % (Auto) 2.7 Baso % (Auto) 0.6 Neut # (Auto) 2.4 Lymph # (Auto) 1.7 [place] # (Auto) 0.8 Eos # (Auto) 0.1 Baso # (Auto) 0.0 WBC Differential . Differential Comment Auto diff final ESR Sodium 142 Potassium 4.1 Chloride 108 H Carbon Dioxide 25.9 Anion Gap 8 BUN 11 Creatinine 0.80 Estimated GFR Greater than 89 Random Glucose 97 Calcium 8.2 L Total Bilirubin AST ALT Alkaline Phosphatase C-Reactive Protein Total Protein Albumin Microbiology 03/07/18 13:00 Abscess - Finger Gram Stain - Final - Imaging Impressions Hand MRI 03/07/18 12:28 CONCLUSION: 1. Probable osteomyelitis distal phalanx of the thumb with extensive soft tissue enhancement or marrow enhancement. There is no bony destruction evident on plain films from the same date. The same date. Assessment and Plan - Assessment (1) Osteomyelitis Code(s): M86.9 - Osteomyelitis, unspecified Status: Acute (2) Metabolic acidosis Code(s): E87.2 - Acidosis Status: Acute (3) Closed fracture of proximal end of right humerus Code(s): S42.201A - Unspecified fracture of upper end of right humerus, initial encounter for closed fracture Status: Acute - Plan Patient is a 62-year-old male presenting to the emergency department for evaluation of left first finger infection. Osteomyelitis Left thumb abscess/edema/infection -Finger X ray:Soft tissue swelling of the left thumb without acute bony abnormality or radiopaque foreign body. - Hand MRI :Probable osteomyelitis distal phalanx of the thumb with extensive soft tissue enhancement or marrow enhancement. There is no bony destruction evident on plain films from the same date -ID consulted, appreciate recommendation -Hand Surgeon consulted: Appreciate recommendation -Continue Vanco, Zosyn and clindamycin -Continue pain management with bowel regimen Right shoulder pain Recent right humerus fracture Recent post fall at home -XRay: No change comminuted mildly displaced fractures involving the proximal right humerus -Continue pain management with bowel regimen Tobacco dependence Alcohol dependence -Counseling provided for smoking cessation and alcohol cessation -Nicotine patch-patient refused at this time DVT prophylaxis: Bilateral SCD, hold off on anticoagulation until cleared with hand surgeon Code Status: Full code Discussed Condition With: Patient and nurse (1) Osteomyelitis Qualifiers: Osteomyelitis type: unspecified type Osteomyelitis location: unspecified site Qualified Code(s): M86.9 - Osteomyelitis, unspecified
[2018-03-08] MEDS ORDERED: Influenza (Quadrivalent) Vaccine 0.5 ML Syringe IM ONE (10:00)
--- NOTE | 2018-03-08 10:34 | P.CONID ---
History of Present Illness Service: Infectious Disease Consult date: 03/08/18 Requesting Physician: Gracia Louie Reason for Consult: Evaluate patient with infected left thumb Primary Care Provider: Carmen Guerrero Chief Complaint: Left thumb swelling and pain History of Present Illness: Patient seen and examined. Records reviewed. Patient is a 63-year-old male, with known history of alcohol abuse, apparently has been in a rehab facility when he started noticing some redness on his left thumb. This happened over the last 1 week. In the last 2-3 days prior to admission he started getting more swelling and started getting red, and he presented to the emergency room and he was given an antibiotic. He came back the next day and had noted a bullous lesion on the thumb. He denies any fever chills or sweats. He could not remember whether he has had any kind of injury to that thumb. He had drainage of the bullous lesion in the left thumb. He has not been febrile here. WBC is normal. Sed rate is elevated. X-ray of the thumb did not show any bony destruction. MRI of the hand is showing some findings of possible ostial of the distal phalanx of the left thumb. Infectious disease consultation has been requested to assist with evaluation and treatment. Review of Systems Constitutional: Denies chills, Denies fever(s), Denies malaise, Denies night sweats Eyes: Denies discharge, Denies dry eyes Ears, Nose, Mouth, and Throat: Denies difficulty swallowing, Denies ear pain, Denies facial pain, Denies nasal discharge, Denies pain with swallowing, Denies sore throat Cardiovascular: Denies chest pain, Denies shortness of breath Respiratory: Denies chest congestion, Denies cough, Denies shortness of breath Gastrointestinal: Denies abdominal pain, Denies difficulty swallowing, Denies loose stools, Denies nausea, Denies pain with swallowing, Denies vomiting Genitourinary: Denies difficulty urinating, Denies painful urination Musculoskeletal: Reports joint pain Skin/Breast: Reports sores, Reports wounds, Denies rash Neurologic: Denies headache(s) PMFSH - History History 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 - Medical History Medical History: Medical History (Last Reviewed 03/08/18 @ 10:30 by Emelyn Ulloa MD) Shoulder fracture, right Alcoholism /alcohol abuse Alcoholism /alcohol abuse - Surgical History Surgical History: Surgical History (Last Reviewed 03/08/18 @ 10:30 by Emelyn Ulloa MD) No history of previous surgery - Family History Family History: Family History (Last Reviewed 03/08/18 @ 10:30 by Emelyn Ulloa MD) Father Osteoarthritis Prostate cancer Bone cancer - Tobacco History Second Hand Smoke Exposure: Yes Tobacco Use In Past 30 Days: Yes Smoking Status: Current some day smoker Tobacco Type: Cigarettes - Alcohol History How Often Do You Have a Drink Containing Alcohol: Never - Substance Use History Substance History: No History of Abuse - Travel History Recent Travel in the [place] Within the Last 8 Weeks: No Recent Travel Out of the Country Within the Last 8 Weeks: No - Immunization History Tetanus Immunization: <5 Years Hx Influenza Vaccine This Season: No Medications and Allergies Active Medications: Active Medications Acetaminophen (Tylenol) 650 mg PO Q4H PRN PRN Reason: Temp > 100.4 Acetaminophen (Tylenol) 650 mg PO Q6HR PRN PRN Reason: pain 1 to 5 Al Hydroxide/Mg Hydroxide (Milk Of Magnesia Liq) 30 ml PO Q12H PRN PRN Reason: Mild Constipation Bisacodyl (Dulcolax Supp) 10 mg RECTAL DAILY PRN PRN Reason: SEVERE CONSITIPATION Clindamycin Phosphate 600 mg/ (Sodium Chloride) 104 mls @ 200 mls/hr IV.SIG NOW [facility] Piperacillin/Tazobactam/Dextrose (Zosyn 3.375 Gm Premix) 50 mls @ 100 mls/hr IV.SIG Q6H [facility] Last Infusion: 03/08/18 09:57 Dose: Infused Vancomycin HCl 1,500 mg/ (Sodium Chloride) 515 mls @ 250 mls/hr IV.SIG Q12H [facility] Last Infusion: 03/08/18 04:05 Dose: Infused Ibuprofen (Motrin) 400 mg PO Q6H PRN PRN Reason: pain 6 to 10 Last Admin: 03/08/18 09:24 Dose: 400 mg Lactulose (Lactulose Liq) 30 ml PO DAILY PRN PRN Reason: SEVERE CONSITIPATION Miscellaneous Information ([facility] Ordered Lab Info) 0 each OTHER ONCE ONE Stop: 03/09/18 13:46 Naloxone HCl (Narcan Inj) 0.4 mg IV.PUSH UNSCH PRN PRN Reason: SEE LABEL COMMENTS Ondansetron HCl (Zofran Inj) 4 mg IV.PUSH Q6H PRN PRN Reason: NAUSEA OR VOMITING Pharmacy Profile Note (Vancomycin Consult Pharmacy) 1 each OTHER UNSCH PRN PRN Reason: Pharmacy to dose Senna/Docusate Sodium (Nano-Colace) 1 tab PO BID [facility] Last Admin: 03/08/18 08:09 Dose: Not Given Sennosides (Senokot) 17.2 mg PO Q12H PRN PRN Reason: Moderate Constipation Sodium Chloride (Ns Flush) 2 ml IV.FLUSH BID [facility] Last Admin: 03/08/18 09:25 Dose: 2 ml Sodium Chloride (Ns Flush) 2 ml IV.FLUSH PRN PRN PRN Reason: FLUSH AFTER USING IV ACCESS Allergies Allergy/AdvReac Type Severity Reaction Status Date / Time fexofenadine Allergy Intermediate Hives Verified 03/07/18 12:14 naproxen [From Aleve] Allergy Intermediate Hives Verified 03/07/18 16:24 Exam Vital signs: Vital Signs 03/07/18 12:01 03/07/18 13:24 03/07/18 17:30 Temperature 98.5 F Pulse Rate 90 80 95 H Respiratory Rate 18 15 18 Blood Pressure 130/84 112/76 110/70 Pulse Oximetry 99 99 96 03/07/18 20:00 03/07/18 23:57 03/08/18 00:00 Temperature 97.9 F 97.2 F L Pulse Rate 77 65 Respiratory Rate 18 18 18 Blood Pressure 114/66 107/60 Pulse Oximetry 96 97 03/08/18 00:26 03/08/18 02:13 03/08/18 04:10 Temperature 97.3 F L Pulse Rate 66 Respiratory Rate 16 16 18 Blood Pressure 110/79 Pulse Oximetry 98 03/08/18 07:00 03/08/18 08:05 Temperature 97.9 F Pulse Rate 66 Respiratory Rate 12 20 Blood Pressure 115/70 Pulse Oximetry 95 Intake & Output 03/07/18 03/08/18 03/08/18 18:59 06:59 18:59 Intake Total 350 / 350 615 / 615 50 / 50 Balance 350 / 350 615 / 615 50 / 50 Weight 78.925 kg 80.8 kg Intake: IV 350 / 350 615 / 615 50 / 50 Zosyn 3.375 GM Premix 50 ML @ 100 / 100 50 / 50 100 mls/hr IV.SIG Q6H [facility] Rx#: [id number] Zosyn 4.5 GM Premix 4.5 gm In 100 / 100 100 ml @ 200 mls/hr IV.SIG ONCE ONE Rx#:[id number] Vancomycin Inj 1,000 MG In NS 250 / 250 Inj 250 ML @ 250 mls/hr IV.SIG ONCE ONE Rx#:[id number] Vancomycin Inj 1,500 MG In NS 515 / 515 Inj 500 ML @ 250 mls/hr IV.SIG Q12H [facility] Rx#:[id number] Other: # Voids 1 Date of Last Bowel Movement 03/04/18 03/05/18 Weight On Admission 78.925 kg Narrative: Physical Examination GENERAL: Patient is a well-nourished, well-developed male, awake and alert, not in respiratory distress. SKIN: Cool and dry. No generalized rash, no ecchymoses and no evidence of embolic lesions. HEAD: Atraumatic. Normocephalic. No temporal wasting, or tenderness. EYES: [place] conjunctiva. No petechia or hemorrhage. Pupils equal, round and reactive to light. Extraocular movements full and intact. No scleral icterus. No injection or drainage. EARS, NOSE AND THROAT: Nose without bleeding or purulent nasal discharge. No sinus tenderness. Mucous membranes pink and moist. No oral lesions noted. No exudate. No oral thrush. NECK: Trachea midline. Supple and not tender, no meningeal signs CARDIOVASCULAR: Regular rate and rhythm. No murmurs, rubs or gallops heard RESPIRATORY: Clear to auscultation. Breath sounds equal bilaterally. No rales , wheezing or rhonchi ABDOMEN: Soft, non-tender, nondistended. Bowel sounds present and normoactive. No guarding. No rebound. No organomegaly. EXTREMITIES: No clubbing, cyanosis, or edema. L hand- L thumb is swollen and red, there is an unroofed bullous lesion below the nail bed, thumb diffusely tender, no lymphangitis noticed in hand or wrist. No calf tenderness. Well perfused and warm. NEUROLOGICAL: Awake and alert. Cranial nerves grossly intact. Motor grossly within normal limits. PSYCHIATRIC: Normal affect, calm and cooperative. LINE: No evidence of infection Results - Labs CBC & Chem 7: 03/08/18 06:06 03/08/18 06:06 Labs: Laboratory Results - last 24 hr 03/07/18 03/07/18 03/07/18 13:10 13:10 13:10 WBC 8.4 RBC 3.60 L Hgb 13.3 Hct 38.2 L MCV 106.1 H MCH 36.8 H MCHC 34.7 RDW 14.2 Plt Count 284 MPV 6.8 L Neut % (Auto) 62.2 Lymph % (Auto) 24.4 [place] % (Auto) 12.4 H Eos % (Auto) 0.7 Baso % (Auto) 0.3 Neut # (Auto) 5.2 Lymph # (Auto) 2.0 [place] # (Auto) 1.0 H Eos # (Auto) 0.1 Baso # (Auto) 0.0 WBC Differential . Differential Comment Auto diff final ESR 65 H Sodium 140 Potassium 4.2 Chloride 105 Carbon Dioxide 29.1 Anion Gap 6 BUN 10 Creatinine 0.83 Estimated GFR Greater than 89 Random Glucose 97 Calcium 8.7 Total Bilirubin 0.7 AST 10 L ALT 18 Alkaline Phosphatase 84 C-Reactive Protein 3.60 H Total Protein 8.1 Albumin 3.6 03/08/18 03/08/18 06:06 06:06 WBC 5.1 RBC 3.72 L Hgb 13.7 Hct 39.3 MCV 105.6 H MCH 36.8 H MCHC 34.8 RDW 14.6 Plt Count 251 MPV 6.7 L Neut % (Auto) 47.1 Lymph % (Auto) 34.3 [place] % (Auto) 15.3 H Eos % (Auto) 2.7 Baso % (Auto) 0.6 Neut # (Auto) 2.4 Lymph # (Auto) 1.7 [place] # (Auto) 0.8 Eos # (Auto) 0.1 Baso # (Auto) 0.0 WBC Differential . Differential Comment Auto diff final ESR Sodium 142 Potassium 4.1 Chloride 108 H Carbon Dioxide 25.9 Anion Gap 8 BUN 11 Creatinine 0.80 Estimated GFR Greater than 89 Random Glucose 97 Calcium 8.2 L Total Bilirubin AST ALT Alkaline Phosphatase C-Reactive Protein Total Protein Albumin - Imaging Impressions Hand MRI 03/07/18 12:28 CONCLUSION: 1. Probable osteomyelitis distal phalanx of the thumb with extensive soft tissue enhancement or marrow enhancement. There is no bony destruction evident on plain films from the same date. The same date. Assessment and Plan - Plan Impression Cellulitis L hand ?Osteo of distal phalanx on MRI Hx ETOH abuse Recommendation Follow C/S Hand surgery to evaluate Monitor response to Abx There is no open wound, or trauma, and clinically looks more of cellulitis - but will monitor I will follow along with you Thank you for this consultation
--- NOTE | 2018-03-08 16:10 | P.CON ---
History of Present Illness Service: Hand surgery Consult date: 03/08/18 Primary Care Provider: Carmen Guerrero Chief Complaint: Left thumb swelling and pain History of Present Illness: 62-year-old male, with a history of alcohol abuse, was in a alcohol rehab facility when he noticed some redness over the left thumb. This began roughly 1 week ago. This may have been associated with a "paronychia". Patient presented several days ago to the hospital emergency department and was eventually discharged on p.o. antibiotics. He returned the next day with worsening of his pain. He is now status post ED I&D. White count is normal. MRI suggestive of osteomyelitis. Patient reports that his pain is significantly better since the I&D performed by the ED. Patient currently endorses normal sensation to the thumb tip. He reports his pain is mild to moderate and improving. Except as noted in the HPI review of systems negative to presenting complaint Family history noncontributory to presenting complaint Medical history/surgical history: Shoulder fracture, right Alcoholism /alcohol abuse Social history positive cigarettes Medication list reviewed Allergies fexofenadine naproxen PMFSH - History History 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 - Medical History Medical History: Medical History (Last Reviewed 03/08/18 @ 10:30 by Emelyn Ulloa MD) Shoulder fracture, right Alcoholism /alcohol abuse Alcoholism /alcohol abuse - Surgical History Surgical History: Surgical History (Last Reviewed 03/08/18 @ 10:30 by Emelyn Ulloa MD) No history of previous surgery - Family History Family History: Family History (Last Reviewed 03/08/18 @ 10:30 by Emelyn Ulloa MD) Father Osteoarthritis Prostate cancer Bone cancer - Tobacco History Second Hand Smoke Exposure: Yes Tobacco Use In Past 30 Days: Yes Smoking Status: Current some day smoker Tobacco Type: Cigarettes - Alcohol History How Often Do You Have a Drink Containing Alcohol: Never - Substance Use History Substance History: No History of Abuse - Travel History Recent Travel in the [place] Within the Last 8 Weeks: No Recent Travel Out of the Country Within the Last 8 Weeks: No - Immunization History Tetanus Immunization: <5 Years Hx Influenza Vaccine This Season: No Medications and Allergies Active Medications: Active Medications Acetaminophen (Tylenol) 650 mg PO Q4H PRN PRN Reason: Temp > 100.4 Acetaminophen (Tylenol) 650 mg PO Q6HR PRN PRN Reason: pain 1 to 5 Al Hydroxide/Mg Hydroxide (Milk Of Magnesia Liq) 30 ml PO Q12H PRN PRN Reason: Mild Constipation Bisacodyl (Dulcolax Supp) 10 mg RECTAL DAILY PRN PRN Reason: SEVERE CONSITIPATION Clindamycin Phosphate 600 mg/ (Sodium Chloride) 104 mls @ 200 mls/hr IV.SIG NOW [facility] Piperacillin/Tazobactam/Dextrose (Zosyn 3.375 Gm Premix) 50 mls @ 100 mls/hr IV.SIG Q6H [facility] Last Admin: 03/08/18 15:46 Dose: 100 mls/hr Vancomycin HCl 1,500 mg/ (Sodium Chloride) 515 mls @ 250 mls/hr IV.SIG Q12H [facility] Last Infusion: 03/08/18 15:47 Dose: Infused Ibuprofen (Motrin) 400 mg PO Q6H PRN PRN Reason: pain 6 to 10 Last Admin: 03/08/18 15:47 Dose: 400 mg Lactulose (Lactulose Liq) 30 ml PO DAILY PRN PRN Reason: SEVERE CONSITIPATION Miscellaneous Information ([facility] [place] [facility] Ordered Lab Info) 0 each OTHER ONCE ONE Stop: 03/09/18 13:46 Naloxone HCl (Narcan Inj) 0.4 mg IV.PUSH UNSCH PRN PRN Reason: SEE LABEL COMMENTS Ondansetron HCl (Zofran Inj) 4 mg IV.PUSH Q6H PRN PRN Reason: NAUSEA OR VOMITING Pharmacy Profile Note (Vancomycin Consult Pharmacy) 1 each OTHER UNSCH PRN PRN Reason: Pharmacy to dose Senna/Docusate Sodium (Nano-Colace) 1 tab PO BID [facility] Last Admin: 03/08/18 08:09 Dose: Not Given Sennosides (Senokot) 17.2 mg PO Q12H PRN PRN Reason: Moderate Constipation Sodium Chloride (Ns Flush) 2 ml IV.FLUSH BID [facility] Last Admin: 03/08/18 09:25 Dose: 2 ml Sodium Chloride (Ns Flush) 2 ml IV.FLUSH PRN PRN PRN Reason: FLUSH AFTER USING IV ACCESS Allergies Allergy/AdvReac Type Severity Reaction Status Date / Time fexofenadine Allergy Intermediate Hives Verified 03/07/18 12:14 naproxen [From Aleve] Allergy Intermediate Hives Verified 03/07/18 16:24 Physical Exam Vital signs: Vital Signs 03/07/18 17:30 03/07/18 20:00 03/07/18 23:57 Temperature 97.9 F Pulse Rate 95 H 77 Respiratory Rate 18 18 18 Blood Pressure 110/70 114/66 Pulse Oximetry 96 96 03/08/18 00:00 03/08/18 00:26 03/08/18 02:13 Temperature 97.2 F L Pulse Rate 65 Respiratory Rate 18 16 16 Blood Pressure 107/60 Pulse Oximetry 97 03/08/18 04:10 03/08/18 07:00 03/08/18 08:05 Temperature 97.3 F L 97.9 F Pulse Rate 66 66 Respiratory Rate 18 12 20 Blood Pressure 110/79 115/70 Pulse Oximetry 98 95 03/08/18 10:40 Temperature 97.7 F Pulse Rate 62 Respiratory Rate 20 Blood Pressure 117/80 Pulse Oximetry 97 Intake & Output 03/07/18 03/08/18 03/08/18 18:59 06:59 18:59 Intake Total 350 / 350 615 / 615 565 / 565 Balance 350 / 350 615 / 615 565 / 565 Weight 78.925 kg 80.8 kg Intake: IV 350 / 350 615 / 615 565 / 565 Zosyn 3.375 GM Premix 50 ML @ 100 / 100 50 / 50 100 mls/hr IV.SIG Q6H [facility] Rx#: [id number] Zosyn 4.5 GM Premix 4.5 gm In 100 / 100 100 ml @ 200 mls/hr IV.SIG ONCE ONE Rx#:[id number] Vancomycin Inj 1,000 MG In NS 250 / 250 Inj 250 ML @ 250 mls/hr IV.SIG ONCE ONE Rx#:[id number] Vancomycin Inj 1,500 MG In NS 515 / 515 515 / 515 Inj 500 ML @ 250 mls/hr IV.SIG Q12H [facility] Rx#:[id number] Other: # Voids 1 Date of Last Bowel Movement 03/04/18 03/05/18 Weight On Admission 78.925 kg Narrative: No apparent anxiety moist mucous membranes PERRLA skin without rash respirations nonlabored moves all 4 extremities to command digits warm well perfused Left thumb with moderate edema/erythema Several centimeter in diameter bulla just proximal to the paronychial fold, which is decompressed with obvious ED I&D stab incision No undrained fluctuance appreciated Mild erythema to the dorsal wrist and distal forearm No tenderness to firm palpation over the first flexor sheath Results - Labs CBC & Chem 7: 03/08/18 06:06 03/08/18 06:06 Labs: Laboratory Results - last 24 hr 03/08/18 03/08/18 06:06 06:06 WBC 5.1 RBC 3.72 L Hgb 13.7 Hct 39.3 MCV 105.6 H MCH 36.8 H MCHC 34.8 RDW 14.6 Plt Count 251 MPV 6.7 L Neut % (Auto) 47.1 Lymph % (Auto) 34.3 [place] % (Auto) 15.3 H Eos % (Auto) 2.7 Baso % (Auto) 0.6 Neut # (Auto) 2.4 Lymph # (Auto) 1.7 [place] # (Auto) 0.8 Eos # (Auto) 0.1 Baso # (Auto) 0.0 WBC Differential . Differential Comment Auto diff final Sodium 142 Potassium 4.1 Chloride 108 H Carbon Dioxide 25.9 Anion Gap 8 BUN 11 Creatinine 0.80 Estimated GFR Greater than 89 Random Glucose 97 Calcium 8.2 L Assessment and Plan - Assessment (1) Infection of thumb Code(s): L08.9 - Local infection of the skin and subcutaneous tissue, unspecified Status: Acute (2) Osteomyelitis Code(s): M86.9 - Osteomyelitis, unspecified Status: Acute - Plan 62-year-old male with likely left thumb paronychia which has progressed to questionable osteomyelitis Antibiotics per ID No undrained collection appreciated status post ED I&D Will follow (2) Osteomyelitis Qualifiers: Osteomyelitis type: unspecified type Osteomyelitis location: unspecified site Qualified Code(s): M86.9 - Osteomyelitis, unspecified
[2018-03-09] MEDS: Vancomycin Inj 1,500 MG in Sodium Chlor 0.9% Inj 500 ML IV.SIG SCH ×2 (01:59→14:06)
[2018-03-09] MEDS: Piperacil/Tazo 3.375 GM Premix 50 ML IV.SIG SCH ×4 (04:07→21:24)
[2018-03-09] MEDS: Ibuprofen 400 MG Tablet PO PRN ×2 (04:11→16:19)
[2018-03-09] MEDS: Senna/Docusate Sodium 8.6/50 MG Tablet PO SCH ×2 (08:27→21:25)
--- NOTE | 2018-03-09 09:35 | P.PNIM ---
Physical Exam Vital signs: Vital Signs 03/08/18 10:40 03/08/18 15:30 03/08/18 20:00 Temperature 97.7 F 98.1 F 97.5 F L Pulse Rate 62 71 71 Respiratory Rate 20 20 20 Blood Pressure 117/80 122/63 113/75 Pulse Oximetry 97 97 95 03/09/18 00:00 03/09/18 01:52 03/09/18 04:00 Temperature 97.4 F L 97.6 F Pulse Rate 73 65 Respiratory Rate 20 18 20 Blood Pressure 113/88 117/70 Pulse Oximetry 97 97 03/09/18 05:00 03/09/18 07:00 Temperature Pulse Rate Respiratory Rate 16 12 Blood Pressure Pulse Oximetry Intake & Output 03/08/18 03/09/18 03/09/18 18:59 06:59 18:59 Intake Total 855 / 855 615 / 615 Output Total 600 / 600 Balance 855 / 855 15 Weight 82.6 kg Intake: IV 615 / 615 615 / 615 Zosyn 3.375 GM Premix 50 ML @ 100 / 100 100 / 100 100 mls/hr IV.SIG Q6H ALIYAH Rx#: [id number] Vancomycin Inj 1,500 MG In NS 515 / 515 515 / 515 Inj 500 ML @ 250 mls/hr IV.SIG Q12H ALIYAH Rx#:[id number] Oral 240 / 240 Output: Urine 600 / 600 Other: # Voids 2 Date of Last Bowel Movement 03/05/18 03/09/18 03/08/18 # Bowel Movements 1 Results - Labs CBC & Chem 7: 03/08/18 06:06 03/08/18 06:06 Microbiology 03/07/18 13:00 Abscess - Finger Gram Stain - Final 03/07/18 13:00 Abscess - Finger Wound Culture - Preliminary gram negative rods Assessment and Plan - Assessment (1) Osteomyelitis Code(s): M86.9 - Osteomyelitis, unspecified Status: Acute (2) Metabolic acidosis Code(s): E87.2 - Acidosis Status: Acute (3) Closed fracture of proximal end of right humerus Code(s): S42.201A - Unspecified fracture of upper end of right humerus, initial encounter for closed fracture Status: Acute - Plan Patient is a 62-year-old male presenting to the emergency department for evaluation of left first finger infection. Osteomyelitis Left thumb abscess/edema/infection -Finger X ray:Soft tissue swelling of the left thumb without acute bony abnormality or radiopaque foreign body. - Hand MRI :Probable osteomyelitis distal phalanx of the thumb with extensive soft tissue enhancement or marrow enhancement. There is no bony destruction evident on plain films from the same date -ID following, appreciate recommendation -Hand Surgeon following: Appreciate recommendation -Continue Vanco, Zosyn and clindamycin -Continue pain management with bowel regimen Right shoulder pain Recent right humerus fracture Recent post fall at home -XRay: No change comminuted mildly displaced fractures involving the proximal right humerus -Continue pain management with bowel regimen Tobacco dependence Alcohol dependence -Counseling provided for smoking cessation and alcohol cessation -Nicotine patch-patient refused at this time DVT prophylaxis: Bilateral SCD, hold off on anticoagulation until cleared with hand surgeon Code Status: full code Discussed Condition With: patient and nurse Discharge Planning: Plan for discharge when cleared with hand surgeon and ID (1) Osteomyelitis Qualifiers: Osteomyelitis type: unspecified type Osteomyelitis location: unspecified site Qualified Code(s): M86.9 - Osteomyelitis, unspecified
[2018-03-09] MEDS ORDERED: Pharmacy Ordered Lab Info OTHER ONE (13:45)
--- NOTE | 2018-03-09 14:23 | P.PNID ---
Subjective Remarks: Patient is a 63-year-old male, with known history of alcohol abuse, apparently has been in a rehab facility when he started noticing some redness on his left thumb. This happened over the last 1 week. In the last 2-3 days prior to admission he started getting more swelling and started getting red, and he presented to the emergency room and he was given an antibiotic. He came back the next day and had noted a bullous lesion on the thumb. He denies any fever chills or sweats. He could not remember whether he has had any kind of injury to that thumb. He had drainage of the bullous lesion in the left thumb. He has not been febrile here. WBC is normal. Sed rate is elevated. X-ray of the thumb did not show any bony destruction. MRI of the hand is showing some findings of possible ostial of the distal phalanx of the left thumb. Infectious disease consultation has been requested to assist with evaluation and treatment. Notes reviewed Temps ok C/O pain L thumb Surgery notes reviewed C/S Citrobacter, Klebsiella and mixed anaerobes Antibiotics: Clindamycin Zosyn Past Medical History: Shoulder fracture, right Alcoholism /alcohol abuse Alcoholism /alcohol abuse Allergies/Adverse Reactions: Allergies fexofenadine Allergy (Intermediate, Verified 03/07/18 12:14) Hives naproxen [From Aleve] Allergy (Intermediate, Verified 03/07/18 16:24) Hives has taken ibuprofen without any problems Objective Vital Signs 03/08/18 15:30 03/08/18 20:00 03/09/18 00:00 Temperature 98.1 F 97.5 F L 97.4 F L Pulse Rate 71 71 73 Respiratory Rate 20 20 20 Blood Pressure 122/63 113/75 113/88 Pulse Oximetry 97 95 97 03/09/18 01:52 03/09/18 04:00 03/09/18 05:00 Temperature 97.6 F Pulse Rate 65 Respiratory Rate 18 20 16 Blood Pressure 117/70 Pulse Oximetry 97 03/09/18 07:00 03/09/18 08:00 03/09/18 12:36 Temperature 98.0 F Pulse Rate 73 Respiratory Rate 12 20 12 Blood Pressure 116/68 Pulse Oximetry 93 L Intake & Output 03/08/18 03/09/18 03/09/18 18:59 06:59 18:59 Intake Total 855 / 855 615 / 615 50 / 50 Output Total 600 / 600 Balance 855 / 855 15 / 15 50 / 50 Weight 82.6 kg Intake: IV 615 / 615 615 / 615 50 / 50 Zosyn 3.375 GM Premix 50 ML @ 100 / 100 100 / 100 50 / 50 100 mls/hr IV.SIG Q6H ALIYAH Rx#: [id number] Vancomycin Inj 1,500 MG In NS 515 / 515 515 / 515 Inj 500 ML @ 250 mls/hr IV.SIG Q12H ALIYAH Rx#:[id number] Oral 240 / 240 Output: Urine 600 / 600 Other: # Voids 2 Date of Last Bowel Movement 03/05/18 03/09/18 03/08/18 # Bowel Movements 1 03/07/18 13:00 Abscess - Finger Gram Stain - Final 03/07/18 13:00 Abscess - Finger Wound Culture - Final Citrobacter freundii Klebsiella oxytoca Mixed Anaerobes Lab - Hematology Results 03/07/18 03/08/18 13:10 06:06 WBC 5.1 RBC 3.72 L Hgb 13.7 Hct 39.3 MCV 105.6 H MCH 36.8 H MCHC 34.8 RDW 14.6 Plt Count 251 MPV 6.7 L Neut % (Auto) 47.1 Lymph % (Auto) 34.3 [place] % (Auto) 15.3 H Eos % (Auto) 2.7 Baso % (Auto) 0.6 Neut # (Auto) 2.4 Lymph # (Auto) 1.7 [place] # (Auto) 0.8 Eos # (Auto) 0.1 Baso # (Auto) 0.0 WBC Differential . Differential Comment Auto diff final ESR 65 H Lab - Chemistry Results 03/08/18 06:06 Sodium 142 Potassium 4.1 Chloride 108 H Carbon Dioxide 25.9 Anion Gap 8 BUN 11 Creatinine 0.80 Estimated GFR Greater than 89 Random Glucose 97 Calcium 8.2 L Imaging: ITS Impressions Hand MRI 03/07/18 12:28 CONCLUSION: 1. Probable osteomyelitis distal phalanx of the thumb with extensive soft tissue enhancement or marrow enhancement. There is no bony destruction evident on plain films from the same date. The same date. Physical Exam: GENERAL: awake and alert, not in respiratory distress. SKIN: Cool and dry. No generalized rash. HEAD: Atraumatic. Normocephalic. No temporal wasting, or tenderness. EYES: [place] conjunctiva. No petechia or hemorrhage. No scleral icterus. No injection or drainage. EARS, NOSE AND THROAT: Mucous membranes pink and moist. No oral lesions noted. No exudate. No oral thrush. NECK: Trachea midline. Supple and not tender, no meningeal signs CARDIOVASCULAR: Regular rate and rhythm. No murmurs, rubs or gallops heard RESPIRATORY: Clear to auscultation. Breath sounds equal bilaterally. No rales , wheezing or rhonchi ABDOMEN: Soft, non-tender, nondistended. Bowel sounds present and normoactive. No guarding. No rebound. No organomegaly. EXTREMITIES: No clubbing, cyanosis, or edema. L hand- L thumb is swollen and red, superfical wound below the nail, there is pus under his nail, thumb diffusely tender, no lymphangitis noticed in hand or wrist. No calf tenderness. NEUROLOGICAL: Non-focal. PSYCHIATRIC: Normal affect, calm and cooperative. LINE: No evidence of infection Assessment and Plan - Plan Impression Cellulitis L hand, infection L thumb, paronychia - C/S polymicrobial ?Osteo of distal phalanx on MRI Hx ETOH abuse Recommendation Continue Zosyn Stop Clinda Hand surgery following Monitor progress
--- NOTE | 2018-03-09 17:22 | P.PN ---
Subjective Interval history: Patient reports that pain slightly better. Physical Exam Vital signs: Vital Signs 03/08/18 20:00 03/09/18 00:00 03/09/18 01:52 Temperature 97.5 F L 97.4 F L Pulse Rate 71 73 Respiratory Rate 20 20 18 Blood Pressure 113/75 113/88 Pulse Oximetry 95 97 03/09/18 04:00 03/09/18 05:00 03/09/18 07:00 Temperature 97.6 F Pulse Rate 65 Respiratory Rate 20 16 12 Blood Pressure 117/70 Pulse Oximetry 97 03/09/18 08:00 03/09/18 12:36 Temperature 98.0 F Pulse Rate 73 Respiratory Rate 20 12 Blood Pressure 116/68 Pulse Oximetry 93 L Intake & Output 03/08/18 03/09/18 03/09/18 18:59 06:59 18:59 Intake Total 855 / 855 615 / 615 615 / 615 Output Total 600 / 600 Balance 855 / 855 15 / 15 615 / 615 Weight 82.6 kg Intake: IV 615 / 615 615 / 615 615 / 615 Zosyn 3.375 GM Premix 50 ML @ 100 / 100 100 / 100 100 / 100 100 mls/hr IV.SIG Q6H ALIYAH Rx#: [id number] Vancomycin Inj 1,500 MG In NS 515 / 515 515 / 515 515 / 515 Inj 500 ML @ 250 mls/hr IV.SIG Q12H ALIYAH Rx#:[id number] Oral 240 / 240 Output: Urine 600 / 600 Other: # Voids 2 Date of Last Bowel Movement 03/05/18 03/09/18 03/08/18 # Bowel Movements 1 Narrative: Left dorsal thumb bullous reformed This was sharply debrided with the epidermal lysis being extensive and including the eponychial fold extending onto the nail plate Once this was debrided the nail plate was seen to be nonadherent with questionable subjacent fluctuance Results - Labs CBC & Chem 7: 03/08/18 06:06 03/08/18 06:06 Laboratory Results - last 24 hr 03/09/18 13:49 Vancomycin Trough 14.5 H Microbiology 03/07/18 13:00 Abscess - Finger Gram Stain - Final 03/07/18 13:00 Abscess - Finger Wound Culture - Final Citrobacter freundii Klebsiella oxytoca Mixed Anaerobes Assessment and Plan - Assessment (1) Infection of thumb Code(s): L08.9 - Local infection of the skin and subcutaneous tissue, unspecified Status: Acute (2) Osteomyelitis Code(s): M86.9 - Osteomyelitis, unspecified Status: Acute - Plan 62-year-old male with likely left thumb paronychia which has progressed to questionable osteomyelitis Antibiotics per ID Given the findings on exam and the lack of significant improvement, risk benefits alternative treatments were discussed All questions answered and the patient expressed understanding Patient elected to assume the risks of incision and drainage of his left thumb Informed consent obtained The surgical site was prepped and draped in the usual sterile fashion 1% lidocaine with epinephrine was injected in a digital block Using suture scissors, the eponychial fold was elevated off of the nail plates and the soft tissue proximal to the germinal matrix was explored bluntly Following this a 1 cm hyponychial incision was made Blunt spreading with the suture scissors and the distal hyponychial tissue was performed No purulence was encountered in either of the above explorations Wound should be dressed with mupirocin ointment Xeroform gauze and dry gauze changed twice daily Before each dressing change, please have patient wash the thumb with warm soapy water then pat dry then dress per above We will defer antibiotics to ID Please call with questions (2) Osteomyelitis Qualifiers: Osteomyelitis type: unspecified type Osteomyelitis location: unspecified site Qualified Code(s): M86.9 - Osteomyelitis, unspecified
[2018-03-10] MEDS ORDERED: Vancomycin Inj 1,750 MG in Sodium Chlor 0.9% Inj 500 ML IV.SIG SCH (02:00)
[2018-03-10] MEDS: Piperacil/Tazo 3.375 GM Premix 50 ML IV.SIG SCH ×4 (04:30→23:15)
[2018-03-10] MEDS: Senna/Docusate Sodium 8.6/50 MG Tablet PO SCH (08:01)
--- NOTE | 2018-03-10 10:47 | P.PNIM ---
Subjective Interval history: Follow-up for osteomyelitis of the left thumb, right shoulder fracture, alcohol dependence. Patient seen and examined laying in bed, patient stated pain controlled with pain medication. Patient denies any pain at the at this moment, just a small discomfort on the left thumb. However complains of pain on the right shoulder with very limited range of motion. Patient stated did not have any bowel movement yet however states that he is not eating as much. Discussed stool softener, patient agreed. Patient denies any headache or dizziness, denies any chest pain or shortness of breath, denies any abdominal pain, nausea, vomiting, diarrhea or constipation. Patient denies any fever or chills. Nurse denies any acute issues overnight Physical Exam Vital signs: Last Vital Signs Temp 97.2 F L 03/10/18 08:10 Pulse 62 03/10/18 08:10 Resp 20 03/10/18 08:10 BP 131/75 03/10/18 08:10 Pulse Ox 97 03/10/18 08:10 Intake & Output 03/08/18 03/09/18 03/10/18 03/11/18 06:59 06:59 06:59 06:59 Intake Total 965 / 965 1470 / 1470 1295 / 1295 50 / 50 Output Total 600 / 600 300 / 300 Balance 965 / 965 870 / 870 1295 / 1295 -250 / -250 Weight 80.8 kg 82.6 kg Narrative: GENERAL: Well-developed, well-nourished, male in no acute distress SKIN: Warm and dry. Left thumb edema improving, redness, with bolus lesion over the left dorsum with serosanguineous drainage HEAD: Atraumatic. Normocephalic. EYES: Pupils equal and round. No scleral icterus. No injection or drainage. ENT: No nasal bleeding or discharge. Mucous membranes pink and moist. NECK: Trachea midline. No JVD. CARDIOVASCULAR: Regular rate and rhythm. RESPIRATORY: No accessory muscle use. Clear to auscultation. Breath sounds equal bilaterally. GASTROINTESTINAL: Abdomen soft, non-tender, nondistended. Hepatic and splenic margins not palpable. MUSCULOSKELETAL: Extremities without clubbing, cyanosis,. Left thumb phalanx edema, with limited range of motion. Right upper extremity/shoulder with very limited range of motion secondary to previous fracture NEUROLOGICAL: Awake and alert and oriented x3. No obvious cranial nerve deficits. Motor grossly within normal limits. 5/5 strength on bilateral lower extremities, 3 out of 5 strength on right upper extremity and shoulder, 5 out of 5 strength on left upper extremity exam up left thumb with very limited range of motion at 1 out of 5. Normal speech. PSYCHIATRIC: Appropriate mood and affect; insight and judgment normal. Results Labs CBC & Chem 7: 03/08/18 06:06 03/08/18 06:06 Labs: Microbiology 03/07/18 13:00 Abscess - Finger Gram Stain - Final 03/07/18 13:00 Abscess - Finger Wound Culture - Final Citrobacter freundii Klebsiella oxytoca Mixed Anaerobes Assessment and Plan (1) Infection of thumb: Code(s): L08.9 - Local infection of the skin and subcutaneous tissue, unspecified Status: Acute (2) Osteomyelitis: Code(s): M86.9 - Osteomyelitis, unspecified Status: Acute Plan Patient is a 62-year-old male presenting to the emergency department for evaluation of left first finger infection. Osteomyelitis Left thumb abscess/edema/infection -Finger X ray:Soft tissue swelling of the left thumb without acute bony abnormality or radiopaque foreign body. - Hand MRI :Probable osteomyelitis distal phalanx of the thumb with extensive soft tissue enhancement or marrow enhancement. There is no bony destruction evident on plain films from the same date -ID following, appreciate recommendation -Hand Surgeon following: Appreciate recommendation -S/P Vanco and clindamycin, continue Zosyn IV per ID recommendation -Continue pain management with bowel regimen -Status post I&D at bedside of the left thumb with hand surgeon, dressed with minimal drainage Right shoulder pain Recent right humerus fracture Recent /post fall at home -XRay 02/28/18: No change comminuted mildly displaced fractures involving the proximal right humerus -Continue pain management with bowel regimen -Follow-up with orthopedic as an outpatient after antibiotic treatment Constipation No BM x 2 days -add stool softeners and prn laxatives -monitor response Tobacco dependence Alcohol dependence -Counseling provided for smoking cessation and alcohol cessation -Nicotine patch-patient refused at this time DVT prophylaxis: Bilateral SCD, hold off on anticoagulation until cleared with hand surgeon Discharge Planning: Plan for discharge when cleared with hand surgeon and ID Progress Note: Quality VTE Deep Vein Thrombosis/Pulmonary Embolism Present on Admission: No _ (1) Osteomyelitis Qualifiers: Laterality: Osteomyelitis location: unspecified site Osteomyelitis type: unspecified type Qualified Code(s): M86.9 - Osteomyelitis, unspecified
--- NOTE | 2018-03-10 13:01 | P.PNID ---
Subjective Remarks: Patient is a 63-year-old male, with known history of alcohol abuse, apparently has been in a rehab facility when he started noticing some redness on his left thumb. This happened over the last 1 week. In the last 2-3 days prior to admission he started getting more swelling and started getting red, and he presented to the emergency room and he was given an antibiotic. He came back the next day and had noted a bullous lesion on the thumb. He denies any fever chills or sweats. He could not remember whether he has had any kind of injury to that thumb. He had drainage of the bullous lesion in the left thumb. He has not been febrile here. WBC is normal. Sed rate is elevated. X-ray of the thumb did not show any bony destruction. MRI of the hand is showing some findings of possible ostial of the distal phalanx of the left thumb. Infectious disease consultation has been requested to assist with evaluation and treatment. Notes reviewed Temps ok C/O pain L thumb Had some procedure done on his L thumb yesterday patient notes thumb nail is moving C/S Citrobacter, Klebsiella and mixed anaerobes Antibiotics: Zosyn Past Medical History: Shoulder fracture, right Alcoholism /alcohol abuse Alcoholism /alcohol abuse Allergies/Adverse Reactions: Allergies fexofenadine Allergy (Intermediate, Verified 03/07/18 12:14) Hives naproxen [From Aleve] Allergy (Intermediate, Verified 03/07/18 16:24) Hives has taken ibuprofen without any problems Objective Vital Signs 03/09/18 16:00 03/09/18 20:00 03/10/18 00:00 Temperature 98.0 F 97.8 F 97.7 F Pulse Rate 84 73 60 Respiratory Rate 22 20 20 Blood Pressure 140/74 124/77 116/67 Pulse Oximetry 95 97 97 03/10/18 04:00 03/10/18 07:00 03/10/18 08:10 Temperature 97.1 F L 97.2 F L Pulse Rate 63 62 Respiratory Rate 20 12 20 Blood Pressure 127/73 131/75 Pulse Oximetry 97 97 03/10/18 11:51 Temperature Pulse Rate Respiratory Rate 12 Blood Pressure Pulse Oximetry Intake & Output 03/09/18 03/10/18 03/10/18 18:59 06:59 18:59 Intake Total 1095 / 1095 200 / 200 50 / 50 Output Total 300 / 300 Balance 1095 / 1095 200 / 200 -250 / -250 Intake: IV 615 / 615 100 / 100 50 / 50 Zosyn 3.375 GM Premix 50 ML @ 100 / 100 100 / 100 50 / 50 100 mls/hr IV.SIG Q6H ALIYAH Rx#: [id number] Vancomycin Inj 1,500 MG In NS 515 / 515 Inj 500 ML @ 250 mls/hr IV.SIG Q12H ALIYAH Rx#:[id number] Oral 480 / 480 100 / 100 Output: Urine 300 / 300 Other: # Voids 1 Date of Last Bowel Movement 03/08/18 03/09/18 03/07/18 13:00 Abscess - Finger Gram Stain - Final 03/07/18 13:00 Abscess - Finger Wound Culture - Final Citrobacter freundii Klebsiella oxytoca Mixed Anaerobes Imaging: ITS Impressions Hand MRI 03/07/18 12:28 CONCLUSION: 1. Probable osteomyelitis distal phalanx of the thumb with extensive soft tissue enhancement or marrow enhancement. There is no bony destruction evident on plain films from the same date. The same date. Physical Exam: GENERAL: awake and alert, not in respiratory distress. SKIN: Cool and dry. No generalized rash. HEAD: Atraumatic. Normocephalic. No temporal wasting, or tenderness. EYES: [place] conjunctiva. No petechia or hemorrhage. No scleral icterus. No injection or drainage. EARS, NOSE AND THROAT: Mucous membranes pink and moist. No oral lesions noted. No exudate. No oral thrush. NECK: Trachea midline. Supple and not tender, no meningeal signs CARDIOVASCULAR: Regular rate and rhythm. No murmurs, rubs or gallops heard RESPIRATORY: Clear to auscultation. Breath sounds equal bilaterally. No rales , wheezing or rhonchi ABDOMEN: Soft, non-tender, nondistended. Bowel sounds present and normoactive. No guarding. No rebound. No organomegaly. EXTREMITIES: No clubbing, cyanosis, or edema. L hand- L thumb is swollen and red, superfical wound below the nail, there is pus under his nail, thumb diffusely tender, no lymphangitis noticed in hand or wrist. No calf tenderness. NEUROLOGICAL: Non-focal. PSYCHIATRIC: Normal affect, calm and cooperative. LINE: No evidence of infection Assessment and Plan - Plan Impression Cellulitis L hand, infection L thumb, paronychia - C/S polymicrobial ?Osteo of distal phalanx on MRI Hx ETOH abuse Recommendation Continue Zosyn Hand surgery following Monitor progress Likely Cipro and Flagyl when he gets D/C
[2018-03-11] MEDS: Senna/Docusate Sodium 8.6/50 MG Tablet PO SCH ×3 (00:12→22:31)
[2018-03-11] MEDS: Piperacil/Tazo 3.375 GM Premix 50 ML IV.SIG SCH ×2 (03:50→09:43)
--- NOTE | 2018-03-11 09:43 | P.PNIM ---
Subjective Interval history: Follow-up for osteomyelitis of the left thumb, right shoulder fracture, alcohol dependence. Patient seen and examined walking around in the room, ate good breakfast. Patient stated had a good night sleep. Patient complaint of left thumb discomfort stated still cannot bend left thumb, stated afraid of the infection. Patient complains of pain, controlled by pain medication. Pain only with movement or if you get hit with something. Patient denies any fever or chills. Patient denies any headache or dizziness, denies any chest pain shortness of breath, denies any abdominal pain, nausea, vomiting , diarrhea or constipation. Physical Exam Vital signs: Last Vital Signs Temp 97.4 F L 03/11/18 07:59 Pulse 70 03/11/18 07:59 Resp 20 03/11/18 07:59 BP 115/63 03/11/18 07:59 Pulse Ox 94 L 03/11/18 07:59 Intake & Output 03/09/18 03/10/18 03/11/18 03/12/18 06:59 06:59 06:59 06:59 Intake Total 1470 / 1470 1295 / 1295 1060 / 1060 Output Total 600 / 600 303 / 303 Balance 870 / 870 1295 / 1295 757 / 757 Weight 82.6 kg 81.1 kg Narrative: GENERAL: Well-developed, well-nourished, male in no acute distress SKIN: Warm and dry. Left thumb edema improving, redness, with lesion over the left dorsum s/p I & D HEAD: Atraumatic. Normocephalic. EYES: Pupils equal and round. No scleral icterus. No injection or drainage. ENT: No nasal bleeding or discharge. Mucous membranes pink and moist. NECK: Trachea midline. No JVD. CARDIOVASCULAR: Regular rate and rhythm. RESPIRATORY: No accessory muscle use. Clear to auscultation. Breath sounds equal bilaterally. GASTROINTESTINAL: Abdomen soft, non-tender, nondistended. Hepatic and splenic margins not palpable. MUSCULOSKELETAL: Extremities without clubbing, cyanosis,. Left thumb phalanx edema and redness with limited range of motion. Right upper extremity/shoulder with very limited range of motion secondary to previous fracture NEUROLOGICAL: Awake and alert and oriented x3. No obvious cranial nerve deficits. Motor grossly within normal limits. 5/5 strength on bilateral lower extremities, 3 out of 5 strength on right upper extremity and shoulder, 5 out of 5 strength on left upper extremity exam up left thumb with very limited range of motion at 1 out of 5. Normal speech. PSYCHIATRIC: Appropriate mood and affect; insight and judgment normal. Results Labs CBC & Chem 7: 03/08/18 06:06 03/08/18 06:06 Assessment and Plan (1) Infection of thumb: Code(s): L08.9 - Local infection of the skin and subcutaneous tissue, unspecified Status: Acute (2) Osteomyelitis: Code(s): M86.9 - Osteomyelitis, unspecified Status: Acute Plan Patient is a 62-year-old male presenting to the emergency department for evaluation of left first finger infection. Osteomyelitis Left thumb abscess/edema/infection -Finger X ray:Soft tissue swelling of the left thumb without acute bony abnormality or radiopaque foreign body. - Hand MRI :Probable osteomyelitis distal phalanx of the thumb with extensive soft tissue enhancement or marrow enhancement. There is no bony destruction evident on plain films from the same date -ID following, appreciate recommendation -Hand Surgeon following: Appreciate recommendation -S/P Vanco and clindamycin, continue Zosyn IV per ID recommendation -Continue pain management with bowel regimen -Status post I&D at bedside of the left thumb with hand surgeon, dressed with minimal drainage -Left finger abscess culture: Citrobacter Freundi, Klebsiella Oxycota, mixed anaerobes, sensitive to Zosyn Right shoulder pain Recent right humerus fracture Recent /post fall at home -XRay 02/28/18: No change comminuted mildly displaced fractures involving the proximal right humerus -Continue pain management with bowel regimen -Follow-up with orthopedic as an outpatient after antibiotic treatment Constipation No BM x 2 days -add stool softeners and prn laxatives -monitor response, improving Tobacco dependence Alcohol dependence -Counseling provided for smoking cessation and alcohol cessation -Nicotine patch-patient refused at this time DVT prophylaxis: Bilateral SCD, hold off on anticoagulation until cleared with hand surgeon Discharge Planning: Plan for discharge when cleared with hand surgeon and ID Progress Note: Quality VTE Deep Vein Thrombosis/Pulmonary Embolism Present on Admission: No _ (1) Osteomyelitis Qualifiers: Laterality: Osteomyelitis location: unspecified site Osteomyelitis type: unspecified type Qualified Code(s): M86.9 - Osteomyelitis, unspecified
--- NOTE | 2018-03-11 09:54 | P.PNIM ---
Physical Exam Vital signs: Last Vital Signs Temp 97.4 F L 03/11/18 07:59 Pulse 70 03/11/18 07:59 Resp 20 03/11/18 07:59 BP 115/63 03/11/18 07:59 Pulse Ox 94 L 03/11/18 07:59 Intake & Output 03/09/18 03/10/18 03/11/18 03/12/18 06:59 06:59 06:59 06:59 Intake Total 1470 / 1470 1295 / 1295 1060 / 1060 Output Total 600 / 600 303 / 303 Balance 870 / 870 1295 / 1295 757 / 757 Weight 82.6 kg 81.1 kg Narrative: GENERAL: Well-developed, well-nourished, male in no acute distress SKIN: Warm and dry. Left thumb edema improving, redness, with lesion over the left dorsum s/p I & D HEAD: Atraumatic. Normocephalic. EYES: Pupils equal and round. No scleral icterus. No injection or drainage. ENT: No nasal bleeding or discharge. Mucous membranes pink and moist. NECK: Trachea midline. No JVD. CARDIOVASCULAR: Regular rate and rhythm. RESPIRATORY: No accessory muscle use. Clear to auscultation. Breath sounds equal bilaterally. GASTROINTESTINAL: Abdomen soft, non-tender, nondistended. Hepatic and splenic margins not palpable. MUSCULOSKELETAL: Extremities without clubbing, cyanosis,. Left thumb phalanx edema and redness with limited range of motion. Right upper extremity/shoulder with very limited range of motion secondary to previous fracture NEUROLOGICAL: Awake and alert and oriented x3. No obvious cranial nerve deficits. Motor grossly within normal limits. 5/5 strength on bilateral lower extremities, 3 out of 5 strength on right upper extremity and shoulder, 5 out of 5 strength on left upper extremity exam up left thumb with very limited range of motion at 1 out of 5. Normal speech. PSYCHIATRIC: Appropriate mood and affect; insight and judgment normal. Results Labs CBC & Chem 7: 03/11/18 10:17 03/11/18 10:17 Assessment and Plan (1) Infection of thumb: Code(s): L08.9 - Local infection of the skin and subcutaneous tissue, unspecified Status: Acute (2) Osteomyelitis: Code(s): M86.9 - Osteomyelitis, unspecified Status: Acute Plan Patient is a 62-year-old male presenting to the emergency department for evaluation of left first finger infection. Osteomyelitis Left thumb abscess/edema/infection -Finger X ray:Soft tissue swelling of the left thumb without acute bony abnormality or radiopaque foreign body. - Hand MRI :Probable osteomyelitis distal phalanx of the thumb with extensive soft tissue enhancement or marrow enhancement. There is no bony destruction evident on plain films from the same date -ID following, appreciate recommendation -Hand Surgeon following: Appreciate recommendation -S/P Vanco and clindamycin, continue Zosyn IV per ID recommendation -Continue pain management with bowel regimen -Status post I&D at bedside of the left thumb with hand surgeon, dressed with minimal drainage -Left finger abscess culture: Citrobacter Freundi, Klebsiella Oxycota, mixed anaerobes Right shoulder pain Recent right humerus fracture Recent /post fall at home -XRay 02/28/18: No change comminuted mildly displaced fractures involving the proximal right humerus -Continue pain management with bowel regimen -Follow-up with orthopedic as an outpatient after antibiotic treatment Constipation No BM x 2 days -add stool softeners and prn laxatives -monitor response Tobacco dependence Alcohol dependence -Counseling provided for smoking cessation and alcohol cessation -Nicotine patch-patient refused at this time DVT prophylaxis: Bilateral SCD, hold off on anticoagulation until cleared with hand surgeon Discharge Planning: Plan for discharge when cleared with hand surgeon and ID Progress Note: Quality VTE Deep Vein Thrombosis/Pulmonary Embolism Present on Admission: No _ (1) Osteomyelitis Qualifiers: Laterality: Osteomyelitis location: unspecified site Osteomyelitis type: unspecified type Qualified Code(s): M86.9 - Osteomyelitis, unspecified
[2018-03-11 10:44] LABS: Baso % (Auto) 0.7 % (0.0-2.0); Eos # (Auto) 0.2 th/mm3 (0.0-0.4); Eos % (Auto) 3.2 % (0.0-4.0); Hematocrit 38.1 % (39.0-51.0); Hemoglobin 13.6 gm/dL (13.0-17.0); Lymph # (Auto) 1.8 th/mm3 (1.0-4.8); Mean Corpuscular HGB Conc 35.7 % (32.0-36.0); Mean Corpuscular Hemoglobin 36.4 pg (27.0-34.0); Mean Corpuscular Volume 101.9 fL (80.0-100.0); Mean Platelet Volume 6.8 fL (7.0-11.0); Mono # (Auto) 0.4 th/mm3 (0.0-0.9); Mono % (Auto) 8.8 % (0.0-8.0); Neut # (Auto) 2.5 th/mm3 (1.8-7.7); Neut % (Auto) 51.3 % (16.0-70.0); Platelet Count 321 th/mm3 (150-450); Red Blood Count 3.74 mil/mm3 (4.50-5.90); Red Cell Distribution Width 14.1 % (11.6-17.2); White Blood Count 4.9 th/mm3 (4.0-11.0)
[2018-03-11 11:06] LABS: Anion Gap 3 meq/L (5-15); Blood Urea Nitrogen 10 mg/dL (7-18); Calcium 8.5 mg/dL (8.5-10.1); Carbon Dioxide 26.9 meq/L (21.0-32.0); Chloride 108 meq/L (98-107); Glucose,Random 98 mg/dL (74-106); Potassium 3.9 meq/L (3.5-5.1); Sodium 138 meq/L (136-145)
[2018-03-11 11:07] LABS: Glomerular Filtration Rate Greater Than 89 mL/min (>89)
[2018-03-11] MEDS ORDERED: Pharmacy Ordered Lab Info OTHER ONE (13:45)
[2018-03-11] MEDS: metroNIDAZOLE 500 MG Tablet PO SCH ×2 (18:30→22:31)
[2018-03-11] MEDS: Ibuprofen 400 MG Tablet PO PRN (22:32)
[2018-03-12] MEDS: Ibuprofen 400 MG Tablet PO PRN (05:54)
[2018-03-12] MEDS: metroNIDAZOLE 500 MG Tablet PO SCH (05:54)
--- NOTE | 2018-03-12 07:53 | P.PNID ---
Subjective Remarks: Late entry: Patient seen yesterday 03/11. Patient is a 63-year-old male, with known history of alcohol abuse, apparently has been in a rehab facility when he started noticing some redness on his left thumb. This happened over the last 1 week. In the last 2-3 days prior to admission he started getting more swelling and started getting red, and he presented to the emergency room and he was given an antibiotic. He came back the next day and had noted a bullous lesion on the thumb. He denies any fever chills or sweats. He could not remember whether he has had any kind of injury to that thumb. He had drainage of the bullous lesion in the left thumb. He has not been febrile here. WBC is normal. Sed rate is elevated. X-ray of the thumb did not show any bony destruction. MRI of the hand is showing some findings of possible ostial of the distal phalanx of the left thumb. Infectious disease consultation has been requested to assist with evaluation and treatment. Notes reviewed Temps ok C/O pain L thumb Last procedure done 03/10 C/S Citrobacter, Klebsiella and mixed anaerobes Antibiotics: Zosyn Past Medical History: Shoulder fracture, right Alcoholism /alcohol abuse Alcoholism /alcohol abuse Allergies/Adverse Reactions: Allergies fexofenadine Allergy (Intermediate, Verified 03/07/18 12:14) Hives naproxen [From Aleve] Allergy (Intermediate, Verified 03/07/18 16:24) Hives has taken ibuprofen without any problems Objective Vital Signs 03/11/18 07:59 03/11/18 11:59 03/11/18 16:00 Temperature 97.4 F L 97.4 F L 97.9 F Pulse Rate 70 65 72 Respiratory Rate 20 18 18 Blood Pressure 115/63 128/78 113/67 Pulse Oximetry 94 L 97 98 03/11/18 20:00 03/12/18 00:00 03/12/18 04:00 Temperature 98.6 F 97.3 F L 97.4 F L Pulse Rate 74 62 67 Respiratory Rate 20 20 20 Blood Pressure 132/89 125/74 98/60 L Pulse Oximetry 96 95 97 03/12/18 07:29 Temperature 97.6 F Pulse Rate 65 Respiratory Rate 18 Blood Pressure 102/69 Pulse Oximetry 96 Intake & Output 03/11/18 03/12/18 03/12/18 18:59 06:59 18:59 Intake Total 1750 / 1750 Output Total 3 / 3 Balance 1750 / 1750 -3 / -3 Weight 80.2 kg Intake: IV 50 / 50 Zosyn 3.375 GM Premix 50 ML @ 50 / 50 100 mls/hr IV.SIG Q6H ALIYAH Rx#: [id number] Oral 1700 / 1700 Output: Urine 3 / Other: # Voids 2 Date of Last Bowel Movement 03/11/18 03/07/18 13:00 Abscess - Finger Gram Stain - Final 03/07/18 13:00 Abscess - Finger Wound Culture - Final Citrobacter freundii Klebsiella oxytoca Mixed Anaerobes Lab - Hematology Results 03/11/18 10:17 WBC 4.9 RBC 3.74 L Hgb 13.6 Hct 38.1 L MCV 101.9 H MCH 36.4 H MCHC 35.7 RDW 14.1 Plt Count 321 MPV 6.8 L Neut % (Auto) 51.3 Lymph % (Auto) 36.0 [place] % (Auto) 8.8 H Eos % (Auto) 3.2 Baso % (Auto) 0.7 Neut # (Auto) 2.5 Lymph # (Auto) 1.8 [place] # (Auto) 0.4 Eos # (Auto) 0.2 Baso # (Auto) 0.0 WBC Differential . Differential Comment Auto diff final Lab - Chemistry Results 03/11/18 10:17 Sodium 138 Potassium 3.9 Chloride 108 H Carbon Dioxide 26.9 Anion Gap 3 L BUN 10 Creatinine 0.86 Estimated GFR Greater than 89 Random Glucose 98 Calcium 8.5 Imaging: ITS Impressions Hand MRI 03/07/18 12:28 CONCLUSION: 1. Probable osteomyelitis distal phalanx of the thumb with extensive soft tissue enhancement or marrow enhancement. There is no bony destruction evident on plain films from the same date. The same date. Physical Exam: GENERAL: awake and alert, not in respiratory distress. SKIN: Cool and dry. No generalized rash. EYES: [place] conjunctiva. No petechia or hemorrhage. No scleral icterus. No injection or drainage. EARS, NOSE AND THROAT: Mucous membranes pink and moist. No oral lesions noted. No exudate. No oral thrush. NECK: Trachea midline. Supple and not tender, no meningeal signs CARDIOVASCULAR: Regular rate and rhythm. No murmurs, rubs or gallops heard RESPIRATORY: Clear to auscultation. Breath sounds equal bilaterally. No rales , wheezing or rhonchi ABDOMEN: Soft, non-tender, nondistended. Bowel sounds present and normoactive. No guarding. No rebound. No organomegaly. EXTREMITIES: No clubbing, cyanosis, or edema. L hand- L thumb is less swollen and red, superfical wound around the nail. thumb diffusely tender, no lymphangitis noticed in hand or wrist. No calf tenderness. NEUROLOGICAL: Non-focal. PSYCHIATRIC: Normal affect, calm and cooperative. LINE: No evidence of infection Assessment and Plan - Plan Impression Cellulitis L hand, infection L thumb, paronychia - C/S polymicrobial ?Osteo of distal phalanx on MRI Hx ETOH abuse Recommendation Change to po Cipro and Flagyl Give 6 weeks of Cipro Give 4 weeks Flagyl OK for D/C from ID standpoint Wound care per hand surgery Explained plan to the patient D/W Yen MARIO (KATY)
[2018-03-12] MEDS: Senna/Docusate Sodium 8.6/50 MG Tablet PO SCH (09:21)
--- NOTE | 2018-03-12 09:51 | P.DS ---
DS: Providers Date of admission: 03/07/18 19:16 Primary care physician: [facility] Consults: 03/07/18 15:39 Consult to Hand Surgery Routine Consulting Provider: Josue Walsh Reason for Consultation: distal phalanx of thumb osteomyelitis Notified:: Service Spoke with:: katerine Date Notified:: 03/08/18 Time Notified:: 05:16 Comments:: E49 Ordering Provider: JOSE Consult to Infectious Diseases Routine Consulting Provider: Emelyn Ulloa Reason for Consultation: osteomyelitis of distal phalanx of thumb Notified:: Service Spoke with:: ABIGAIL Date Notified:: 03/07/18 Time Notified:: 15:45 Comments:: E49 Ordering Provider: JOSE Brief History from admission: 63-year-old white male who is a current resident at alcohol rehab and has been alcohol free for the past 2 months presents to the emergency room secondary to increase development of swelling and bolus lesions despite taking antibiotics was prescribed in the emergency room yesterday. He denies any associated chills or fevers with the symptoms. He first noted a small lesion posterior to his nail bed 6 days ago and progressed to redness and swelling during the past few days to the point that he has hard time flexing his thumb.. He denies any trauma or injuries to the area. He denies previous infection to the area. Patient is declining any type of narcotics due to being in residential drug rehab. He has taken ibuprofen without any reaction although he had previous reaction to Aleve over-the- counter. He is currently taking ibuprofen for pain. DS: Diagnosis Discharge Diagnosis (1) Infection of thumb: Status: Acute (2) Osteomyelitis: Status: Acute DS: Summary This Patient is a 62-year-old male presenting to the emergency department for evaluation of left first finger infection. And treated for Osteomyelitis/Left thumb abscess/edema/infection. Finger X ray:Soft tissue swelling of the left thumb without acute bony abnormality or radiopaque foreign body. Hand MRI :Probable osteomyelitis distal phalanx of the thumb with extensive soft tissue enhancement or marrow enhancement. There is no bony destruction evident on plain films from the same date. ID following, recommendation continue Zosyn IV and changed to p.o. antibiotic upon discharge. Hand Surgeon following: Status post I&D at bedside of the left thumb with hand surgeon, dressed with minimal drainage. Left finger abscess culture: Citrobacter Freundi, Klebsiella Oxycota, mixed anaerobes, sensitive to Zosyn. ID cleared patient to discharge home on p.o. antibiotic Cipro for 6 weeks and Flagyl for 4 weeks. Discussed with patient not to take any alcohol during the antibiotic treatment, patient verbalized understanding and agreed with the plan. Patient also had a history of Right shoulder pain with Recent right humerus fracture from recent /post fall at home. XRay 02/28/18: No change comminuted mildly displaced fractures involving the proximal right humerus. Instructed patient to follow-up with orthopedic as an outpatient after antibiotic treatment Patient also given counseling for smoking cessation and alcohol cessation. Patient refused nicotine patch at this time Patient instructed to follow-up with primary care in 1 week ED and follow-up with a hand surgeon in 2-3 weeks or as needed. Patient given instruction on daily dressing change of his left thumb Time spent discussing smoking cessation with patient: more than 10 minutes Time Spent with Patient Total time spent providing and/or coordinating discharge services: Less than 30 minutes Quality: VTE Deep Vein Thrombosis/Pulmonary Embolism Present on Admission: No Exam Narrative Exam Narrative: Narrative: GENERAL: Well-developed, well-nourished, male in no acute distress SKIN: Warm and dry. Left thumb edema improving, redness improving, with open lesion over the left dorsum s/p I & D HEAD: Atraumatic. Normocephalic. EYES: Pupils equal and round. No scleral icterus. No injection or drainage. ENT: No nasal bleeding or discharge. Mucous membranes pink and moist. NECK: Trachea midline. No JVD. CARDIOVASCULAR: Regular rate and rhythm. RESPIRATORY: No accessory muscle use. Clear to auscultation. Breath sounds equal bilaterally. GASTROINTESTINAL: Abdomen soft, non-tender, nondistended. Hepatic and splenic margins not palpable. MUSCULOSKELETAL: Extremities without clubbing, cyanosis,. Left thumb phalanx edema and redness improving with limited range of motion. Right upper extremity /shoulder with very limited range of motion secondary to previous fracture NEUROLOGICAL: Awake and alert and oriented x3. No obvious cranial nerve deficits. Motor grossly within normal limits. 5/5 strength on bilateral lower extremities, 3 out of 5 strength on right upper extremity and shoulder, 5 out of 5 strength on left upper extremity exam up left thumb with very limited range of motion at 1 out of 5. Normal speech. PSYCHIATRIC: Appropriate mood and affect; insight and judgment normal. Results Labs on day of discharge: Labs from last 24 hours 03/11/18 03/11/18 10:17 10:17 WBC 4.9 RBC 3.74 L Hgb 13.6 Hct 38.1 L MCV 101.9 H MCH 36.4 H MCHC 35.7 RDW 14.1 Plt Count 321 MPV 6.8 L Neut % (Auto) 51.3 Lymph % (Auto) 36.0 [place] % (Auto) 8.8 H Eos % (Auto) 3.2 Baso % (Auto) 0.7 Neut # (Auto) 2.5 Lymph # (Auto) 1.8 [place] # (Auto) 0.4 Eos # (Auto) 0.2 Baso # (Auto) 0.0 WBC Differential . Differential Comment Auto diff final Sodium 138 Potassium 3.9 Chloride 108 H Carbon Dioxide 26.9 Anion Gap 3 L BUN 10 Creatinine 0.86 Estimated GFR Greater than 89 Random Glucose 98 Calcium 8.5 Impressions ITS Impressions Hand MRI 03/07/18 12:28 CONCLUSION: 1. Probable osteomyelitis distal phalanx of the thumb with extensive soft tissue enhancement or marrow enhancement. There is no bony destruction evident on plain films from the same date. The same date. Discharge Plan Discharge Disposition Patient Disposition: 01 Discharge Home Discharge Condition Condition: Stable Discharge Order Discharge Orders: Discharge Order (Routine); Ordered 03/12/18 Ordered By: Marlena Carrasco Hand Surgery Clear for Discharge (Routine); Ordered 03/12/18 Ordered By: Marlena Carrasco Infectious Disease Clear for Discharge (Routine); Ordered 03/12/18 Ordered By: Marlena Carrasco Discharge Details Anticipated Discharge Date: 03/12/18 Discharge Comment: Patient instructed : NO ALCOHOL USE WHILE ON ANTIBIOTICS, patient verbalized understanding Physicians Team Primary Care Provider: [facility], Attending Provider: Rocio Chávez Other Providers: Emelyn Ulloa ; Josue Walsh Rxs /Orders / Referrals /Forms Prescriptions: New ciprofloxacin HCl 750 mg Tablet 750 mg PO Q12HR 42 Days Qty: 84 RF: 0 metronidazole 500 mg Tablet 500 mg PO Q8HR 28 Days Qty: 84 RF: 0 Discontinued clindamycin HCl 150 mg capsule 450 mg PO Q8H 7 Days Qty: 63 RF: 0 Referrals: [Primary Care Provider] - See Instructions (Follow-up 1 week ) Discharge Instructions Patient Printed Instructions: Abscess Incision and Drainage (DC) Additional Instructions: NO ALCOHOL USE WHILE ON ANTIBIOTICS Wound Care Wound should be dressed with mupirocin ointment Xeroform gauze and dry gauze changed twice daily Before each dressing change, please have patient wash the thumb with warm soapy water then pat dry then dress per above Status ED Status: Left Department
== END 2018-03-12 14:30 | disposition home or self-care (01) ==
LOC: NEPE 11:51 → N05 19:10 → NEPE 19:53
PROVIDERS: ADMIT Hospitalist; ATTEND Hospitalist
DX: F17.210 Nicotine dependence, cigarettes, uncomplicated; L03.114 Cellulitis of left upper limb; L03.012 Cellulitis of left finger; I25.2 Old myocardial infarction; K59.00 Constipation, unspecified; M86.8X4 Other osteomyelitis, hand; Y92.009 Unspecified place in unspecified non-institutional (private) residence as the place of occurrence of the external cause; F10.20 Alcohol dependence, uncomplicated; W19.XXXA Unspecified fall, initial encounter; E87.2 Acidosis; S42.201A Unspecified fracture of upper end of right humerus, initial encounter for closed fracture; L02.512 Cutaneous abscess of left hand; Z23 Encounter for immunization; B96.89 Other specified bacterial agents as the cause of diseases classified elsewhere